=== PATIENT | male | born 1945 | race Caucasian/White ===

== ENCOUNTER 2017-05-04 04:36 | Inpatient (IN) ==
[2017-05-04] MEDS ORDERED: Acetaminophen 325 MG TABLET PO PRN (08:03)
[2017-05-04] MEDS ORDERED: Naloxone 0.4 MG/ML INJ IVP PRN (08:03)
[2017-05-04] MEDS ORDERED: D5% in Water 1,000 ML IVC PRN (08:05)
[2017-05-04] MEDS ORDERED: Dextrose Gel 15 GM PO PRN ×2 (08:05)
[2017-05-04] MEDS ORDERED: *HR* Dextrose 50 % in Water (Syg) 50 ML SYRINGE IVP PRN (08:05)
[2017-05-04] MEDS ORDERED: 0.9 % Sodium Chloride 1,000 ML ONE (08:38)
--- NOTE | 2017-05-04 08:54 | Internal Med History&Physical ---
Date of Encounter: 05/04/17 Time of Encounter: 08:00 Assessment and Plan (1) Elevated troponin Current visit: Yes Status: Acute Likely related to tachycardia. Continue to cycle troponins, 0.03 and 0.05. Telemetry monitoring. Continue Coumadin. (2) Atrial fibrillation with RVR Current visit: Yes Status: Acute Heart rate currently noted to be improving. Continue telemetry monitoring, IV Cardizem drip and plan to wean off as tolerated. Patient was recently taken off amiodarone due to abnormal pulmonary function testing showing restrictive lung disease in December 2016. Continue oral beta alexi and anticoagulation with Coumadin. INR noted to be 1.8. BNP slightly elevated at 220. Check 2-D echocardiogram. Cardiology evaluation. High risk for complications. (3) Essential hypertension Current visit: Yes Status: Chronic Resume home medications. (4) Diabetes mellitus Current visit: Yes Status: Chronic Check hemoglobin A1c. Accu-Chek blood glucose monitoring with sliding scale insulin. Diabetic diet. Qualifiers: Diabetes mellitus type: type 2 Diabetes mellitus complication status: with unspecified complications Diabetes mellitus shelter insulin use: without terminal worker use Qualified Code(s): E11.8 - Type 2 diabetes mellitus with unspecified complications Internal Medicine - H&P: HPI Chief complaint: Chest pain Admitted From: Emergency Dept Plans for Post Hospital Care: Home History of present illness: Mr. Li is a 71 year old male with h/o- atrial fibrillation, presents with c /o- chest pain. Patient was in his usual state of health until last night when he developed a sudden onset of chest pain while watching TV. He had sharp chest pain, radiating across his chest, associated with diaphoresis and shortness of breath and some dizziness. No syncope, cough, palpitations. His symptoms persisted until he got to the ER and was started on IV Cardizem. No similar previous episodes. He reports being diagnosed with a.fib about 4 years ago and that he was recently taken off a medication, probably Amiodarone. He continues to take Coumadin for anticoagulation. Past Med Surg Social Fam HX - Past Medical History Medical history: atrial fibrillation, diabetes, hypertension Psychiatric history: no psych history - Past Surgical History Surgical History: orthopedic, other (right shoulder repair ), thyroidectomy ( thyroid surgery ?excision of mass/cyst) - Social History Smoking Status: Former smoker Smokeless Tobacco Status: No Alcohol use: none Drug use: none Occupational status: retired Current living situation: Home, With Family Activity Level: Independent ambulation Recent Out of Country Travel Within the Last 8 Weeks: No - Family History Mother Living Status: Hx Family Cardiac Disorders: Yes Brother Living Status: Hx Family Cardiac Disorders: Yes (heart transplant) Father Living Status: Cause of : cancer Internal Medicine - H&P: Meds Amiodarone [Cordarone] 200 mg PO DAILY 05/04/17 [History] Atorvastatin [Lipitor] 40 mg PO HS 05/04/17 [History] Carvedilol [Coreg] 6.25 mg PO BID 05/04/17 [History] Cholecalciferol (Vitamin D3) [Dialyvite Vitamin D] 5,000 unit PO DAILY 05/04/17 [History] Losartan Potassium [Cozaar] 50 mg PO DAILY 05/04/17 [History] Metformin HCl [Metformin HCl ER] 500 mg PO DAILY 05/04/17 [History] Warfarin [Coumadin] 2.5 mg PO DAILY 05/04/17 [History] Allergies No Known Allergies Allergy (Unverified 10/05/15 13:30) All Systems PM: A 10-system review of systems was performed and is negative for pertinent findings except as documented above in the HPI. - Constitutional Constitutional: no chills, no fever(s), no night sweats - EENT Eyes: no change in vision, no discharge, no pain, no photophobia Ears: no ear discharge, no ear pain, no tinnitus Nose, mouth and throat: no dysphagia, no nasal discharge, no neck pain, no sore throat - Cardiovascular Cardiovascular ROS IM: chest pain, diaphoresis, dyspnea, lightheadedness - Respiratory Respiratory: dyspnea - Gastrointestinal Gastrointestinal: no abdominal pain, no diarrhea, no hematemesis, no hematochezia, no melena, no nausea, no vomiting - Musculoskeletal Musculoskeletal ROS IM: no numbness, no tingling - Integumentary Integumentary IM: no rash, no unusual bruising - Neurological Neurological ROS: no confusion, no convulsions, no focal weakness, no numbness, no tingling, no tremor(s) - Hematologic/Lymphatic Hematologic/Lymphatic: no easy bruising - Constitutional Vitals: Temp Pulse Resp BP Pulse Ox 97.6 F 104 20 108/63 95 05/04/17 07:22 05/04/17 07:22 05/04/17 07:22 05/04/17 07:22 05/04/17 07:22 General appearance: Present: A&O X 3, answers questions appropriately (although he cannot remember all the details of his medical history) - Respiratory Respiratory exam: Present: decreased breath sounds (at right base), CTAB. Absent: accessory muscle use, rales, rhonchi, wheezes - Cardiovascular Cardiovascular exam: Present: irregular rhythm, +S1, +S2, tachycardia. Absent: diastolic murmur, gallop, rubs, systolic murmur - GI/Abdominal GI/Abdominal exam: Present: normal bowel sounds, soft, no peritoneal signs. Absent: distended, tenderness - Extremities Exam Extremities exam: Present: full ROM, warm, radial pulses palpable and symetrical. Absent: calf tenderness, cyanotic, pedal edema - Neurological Exam Neurological exam: Present: CN II-XII intact, oriented X3, no focal deficits. Absent: pronater drift, facial droop, speech deficit - Skin Skin exam: Present: dry, intact Internal Med - H&P Results - EKG Data -: EKG Interpreted by Myself (atrial fibrillation with RVR, LBBB)
[2017-05-04 09:59] LABS: Hemoglobin A1C 6.1 %
--- NOTE | 2017-05-04 11:04 | Cardiology Consult Note ---
Date of Encounter: 05/04/17 Time of Encounter: 11:03 Assessment and Plan (1) Atrial fibrillation with RVR Current Visit: No Status: Acute H/o PAF. Presents with atrial fibrillation with RVR, LBBB, HR 150. HR currently 90-120 on cardizem gtt. Continue cardizem gtt and titrate as needed to keep HR 100 bpm or less. Check TTE. TTE 2012- EF 45%, mild global systolic dysfunction. . Mild dilated LA. Trivial AR and TR. Check TSH. Amiodarone discontinued 01/2017 secondary to abnormal PFT. In regards to AC he is currently on coumadin therapy. Reports difficulty keeping INR in therapeutic range for three years. I discussed anticoagulation with NOAC. Indication, adverse effects, and use discussed. He would like to try NOAC. We will send RX for eliquis to pharmacy to dumont check. (2) Chest pain Current Visit: No Status: Acute C/o chest pain. May be secondary to atrial fibrillation. Continues to have left sided chest pain that is reproducible. Known LBBB. Will need to monitor troponin. Currently elevated at 0.05 and 0.13. 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 Check TTE. Further recommendation to follow. Qualifiers: Chest pain type: unspecified Qualified Code(s): R07.9 - Chest pain, unspecified (3) Elevated troponin Current Visit: No Status: Acute Mild troponin elevation at 0.05, 0.13. Demand ischemia from afib with RVR Vs NSTEMI. Continue to trend. Check TTE. (4) Cardiomyopathy Current Visit: Yes Status: Acute Known non-ischemic cardiomyoapthy. CXR showed mild basilair opacity likely consolitdation or atelectasis. Low lung volumes and persistent elevation of right hemidiaphragm. BNP mildly elevated 221. Reports 14 lb weight gain in past couple of months. Will give one dose IV lasix today. Re-checking TTE. Strict I&O and daily weights. Low sodium diet. Qualifiers: Cardiomyopathy type: unspecified Qualified Code(s): I42.9 - Cardiomyopathy , unspecified Discussion w patient/family: The assessment and plan as outlined above was discussed with the patient and/or family members who expressed understanding and agreement. All questions were answered. Thank you for involving us in the care of your patient. Please call with any questions. History of Present Illness Consult date: 05/04/17 Requesting physician: Yulissa Moon Consult reason: Afib with RVR Chief complaint: Chest pain History of present illness: Mr. Li is a 71 year old male with a history of atrial fibrillation on coumadin, non-ischemic cardiomyopathy, CHRISTINE on c-pap, HTN, HLD, DM type II who presented with chest pain to [facility] ED. Patient c/o severe pain radiating across his chest and upper abdomen starting yesterday evening. Pain was associated with SOB. He also c/o feeling very hot and is sweating profusely. He reports sweating has been a problem for him in the past but not this bad. Symptoms improved when given medication for HR and NTG patch. Initial work-up revealed atrial fibrillation with HR in the 150's. Troponin 0.05, mild ANNY, and BNP 250. He was transferred to [facility] for further evaluation. Past Med Surg Social Fam HX - Past Medical History Medical history: atrial fibrillation, cardiomyopathy, coronary artery disease, diabetes, hyperlipidemia, hypertension, other (CHRISTINE) Psychiatric history: no psych history - Social History Smoking Status: Former smoker Smokeless Tobacco Status: No Alcohol use: none Drug use: none - Family History Mother Living Status: Hx Family Cardiac Disorders: Yes Brother Living Status: Hx Family Cardiac Disorders: Yes (heart transplant) Father Living Status: Cause of : cancer Medications and Allergies Amiodarone [Cordarone] 200 mg PO DAILY 05/04/17 [History] Atorvastatin [Lipitor] 40 mg PO HS 05/04/17 [History] Carvedilol [Coreg] 6.25 mg PO BID 05/04/17 [History] Cholecalciferol (Vitamin D3) [Dialyvite Vitamin D] 5,000 unit PO DAILY 05/04/17 [History] Losartan Potassium [Cozaar] 50 mg PO DAILY 05/04/17 [History] Metformin HCl [Metformin HCl ER] 500 mg PO DAILY 05/04/17 [History] Warfarin [Coumadin] 2.5 mg PO DAILY 05/04/17 [History] Allergies No Known Allergies Allergy (Unverified 10/05/15 13:30) All Systems Review: A 10-system review of systems was performed and is negative for pertinent findings except as documented above in the HPI. Physical Examination Vital Signs, Last 4 Hours Temp Pulse Resp BP Pulse Ox 05/04/17 08:21 95 05/04/17 07:22 97.6 F 104 20 108/63 95 General: Conversant, No Apparent Distress HEENT: Atraumatic, Normocephaly, Mucus Membranes Moist Neck: No JVD, Normal carotid pulses Cardiac: Other (irregularly irregular) Lungs: Normal Breath Sounds, No Wheeze, Rales, Rhonchi Neuro: Alert and responsive, No focal deficits noted Abdomen: Soft, Non-Tender Skin: No rashes noted on visualized skin, Other (moist warm skin from sweating.) Musculoskeletal: No Chest Wall Tenderness Extremities: No Clubbing, No Cyanosis, No Edema, Normal Pulses Results Lab Results 05/04/17 08:59 Troponin I 0.13 H* - Imaging and Cardiology Echo: report reviewed Cardiac cath: report reviewed - EKG Interpretation EKG results cardiology: personally reviewed (atrial fibrillation with RVR, LBBB. ) Consult Discharge Plan - Plan Referrals: Angel Del Rosario MD [Primary Care Provider] - 05/12/17 2:00 pm (Please follow as schedule...)
[2017-05-04] MEDS ORDERED: Furosemide 20 MG/2 ML VIAL IVP ONE (12:01)
[2017-05-04] MEDS: Insulin LISPRO 300 UNITS/3 ML VIAL SQ SCH ×3 (12:52→21:28)
[2017-05-04] MEDS ORDERED: Warfarin perPT PO PRN ×2 (18:00)
[2017-05-04] MEDS ORDERED: *HR* Warfarin 2.5 MG TABLET PO ONE (18:00)
[2017-05-04] MEDS ORDERED: *HR* Warfarin 2.5 MG TABLET PO SCH (18:00)
[2017-05-04] MEDS ORDERED: APIXABAN 5 MG TABLET PO SCH (21:00)
[2017-05-04] MEDS: Metoprolol XL (24 HR) Succ 50 MG TAB.ER.24H PO SCH (21:26)
[2017-05-05 05:34] LABS: Basophils % 0.5 %; Eosinophils # 0.2 K/mcL (0.0-0.6); Eosinophils % 2.5 %; Immature Granulocytes % 0.2 % (0-4); Lymphocytes # 2.5 K/mcL (0.6-4.6); Lymphocytes % 30.1 %; Mean Corpuscular HGB Conc 31.3 g/dL (31.6-35.5); Mean Corpuscular Hemoglobin 30.7 pg (28.0-33.3); Mean Platelet Volume 9.7 fL (9.4-12.4); Monocytes # 0.7 K/mcL (0.0-1.3); Monocytes % 8.7 %; Neutrophils # 4.8 K/mcL (1.6-8.9); Platelet Count 230 K/mcL (140-400); Red Blood Count 3.98 M/mcL (4.19-5.50); Red Cell Distribution Width 13.2 % (11.5-14.5)
[2017-05-05 05:36] LABS: Prothrombin Time 21.6 Seconds (9.4-12.1)
[2017-05-05 06:02] LABS: BUN/Creatinine Ratio 29 (6-26); Blood Urea Nitrogen 28 mg/dL (8-26); Calcium 8.6 mg/dL (8.6-10.8); Carbon Dioxide 31 mEq/L (19-29); Chloride 104 mEq/L (98-109); Glucose 108 mg/dL (70-99); Magnesium 1.5 mg/dL (1.6-2.6); Osmolality,Calculated 294 (280-300); Phosphorous 3.1 mg/dL (2.3-4.7); Potassium 4.1 mEq/L (3.5-4.5); Sodium 139 mEq/L (136-145); eGFR For African Americans > 60 (> 60); eGFR For Non-African Americans > 60 (> 60)
[2017-05-05 06:06] LABS: Hemoglobin 12.2 g/dL (12.9-16.9)
[2017-05-05] MEDS: Insulin LISPRO 300 UNITS/3 ML VIAL SQ SCH ×4 (08:44→21:51)
[2017-05-05] MEDS: Metoprolol XL (24 HR) Succ 50 MG TAB.ER.24H PO SCH ×2 (08:46→22:18)
--- NOTE | 2017-05-05 09:35 | Cardiology Progress Note ---
Date of Encounter: 05/05/17 Time of Encounter: 08:00 Assessment and Plan (1) Atrial fibrillation with RVR Current Visit: Yes Status: Inactive H/o PAF. Presents with atrial fibrillation with RVR, LBBB, HR 150. Currently rate controlled. HR in the upper 50's to 60's. Continue toprol XL. TTE:EF 25%, severe global hypokenesis. Mild LVH, mild DD. Severely dilated LA. No significant valvular disease. Mild pulmonary hypertension. TTE 2012- EF 45%, mild global systolic dysfunction. . Mild dilated LA. Trivial AR and TR. Check TSH. Amiodarone discontinued 01/2017 secondary to abnormal PFT. Will hold coumadin for [facility]. Restart after [facility]. Eliquis was dumont checked and found to be 210$ a month. He agrees to continue coumadin. (2) Chest pain Current Visit: No Status: Acute C/o chest pain. May be secondary to atrial fibrillation. Continues to have left sided chest pain that is reproducible. Known LBBB. Mild troponin elevation up to 0.13, likely demand ischemia from afib with RVR. [facility] 05/2013: mild non-obstructive CAD (20% LAD). TTE shows newly reduced EF at 25%. [facility] recommended for further evaluation of new cardiomyoapthy. R/B/A of [facility] discussed. He agrees to proceed. Will need to hold coumadin until INR 1.8 or less. Qualifiers: Chest pain type: unspecified Qualified Code(s): R07.9 - Chest pain, unspecified (3) Elevated troponin Current Visit: Yes Status: Inactive Mild troponin elevation at 0.05, 0.13., 0.11, 0.09. Likely demand ischemia from atrial fibrillation with RVR. See plan above. (4) Cardiomyopathy Current Visit: Yes Status: Acute Known non-ischemic cardiomyopathy with worsening LVEF. Mild acute on chronic systolic CHF on admission. CXR showed mild basilair opacity likely consolitdation or atelectasis. Low lung volumes and persistent elevation of right hemidiaphragm. BNP mildly elevated 221. Reports 14 lb weight gain in past couple of months. Given IV lasix yesterday and now euvolemic. Continue to monitor. Strict I&O and daily weights. Low sodium diet. Qualifiers: Cardiomyopathy type: unspecified Qualified Code(s): I42.9 - Cardiomyopathy , unspecified Discussion w patient/family: The assessment and plan as outlined above was discussed with the patient and/or family members who expressed understanding and agreement. All questions were answered. Thank you for involving us in the care of your patient. Please call with any questions. Subjective Principal diagnosis: afib with RVR, new cardiomyoapthy Interval history: Mr Morrell continues to have mild left chest pain at rest that is constant. Denies SOB or palpitations. Objective Vital Signs, Last 4 Hours Temp Pulse Resp BP Pulse Ox 05/05/17 07:40 97.7 F 61 13 122/80 96 05/05/17 07:24 98 General: Conversant, No Apparent Distress HEENT: Atraumatic, Normocephaly, Mucus Membranes Moist Neck: No JVD, Normal carotid pulses Cardiac: Other (Irregularly irregular) Lungs: Normal Breath Sounds, No Wheeze, Rales, Rhonchi Neuro: Alert and responsive, No focal deficits noted Abdomen: Soft, Non-Tender Skin: No rashes noted on visualized skin Musculoskeletal: No Chest Wall Tenderness Extremities: No Clubbing, No Cyanosis, No Edema, Normal Pulses Results 05/05/17 04:01 05/05/17 04:01 Lab Results 05/04/17 05/04/17 05/04/17 08:59 15:43 21:18 WBC Hgb Hct Plt Count INR Sodium Potassium Chloride Carbon Dioxide BUN Creatinine Glucose Calcium Magnesium Troponin I 0.13 H* 0.11 H* 0.09 H* 05/05/17 05/05/17 05/05/17 04:01 04:01 04:01 WBC 8.3 Hgb 12.2 L D Hct 39.0 Plt Count 230 INR 2.0 Sodium 139 Potassium 4.1 Chloride 104 Carbon Dioxide 31 H BUN 28 H Creatinine 0.97 Glucose 108 H Calcium 8.6 Magnesium 1.5 L Troponin I - Imaging and Cardiology Echo: report reviewed - EKG Interpretation EKG results cardiology: personally reviewed Consult Discharge Plan - Plan Referrals: Angel Del Rosario MD [Primary Care Provider] - 05/12/17 2:00 pm (Please follow as schedule...)
--- NOTE | 2017-05-05 10:34 | Internal Med Progress Note ---
<Pasquale Banda - Last Filed: 05/05/17 13:27> Date of Encounter: 05/05/17 Time of Encounter: 10:00 - Assessment and plan (1) Chest pain Current Visit: No Status: Acute Assessment and plan: -Patient is currently experiencing mild left sided chest pain that is not associated with SOB or Diaphoresis anymore -Troponins were trended 0.13->0.11->0.09 today. -EKGs showed Afib w/ RVR -Currently on Statin, Coreg, Losartan and will continue -Cardiology on board Qualifiers: Chest pain type: unspecified Qualified Code(s): R07.9 - Chest pain, unspecified (2) Atrial fibrillation with RVR Current Visit: Yes Status: Acute Assessment and plan: Atrial fibrillation with Rapid ventricular response noted on admission -Anticoagulation with warfarin presently, INR 2.0 today. -Started on cardizem, and his rate is currently controlled with heart rates between 50-70. -Will continue cardiac monitoring (3) Cardiomyopathy Current Visit: Yes Status: Acute Assessment and plan: -TTE demonstrates LVEF 25%, global hypokinesis, severely dilated left ventricle , and mild pulmonary htn. -Previous TTE (2012) showed EF45% -Elevated troponins likely secondary to combination of Afib w/ RVR and newly worsened cardiomyopathy -BNP 221. Got IV lasix yesterday. Strict I's and O's -Cardiology recommends a LHC, which will be done in the morning. -NPO after midnight, hold Warfarin -We will follow cardio recs Qualifiers: Cardiomyopathy type: unspecified Qualified Code(s): I42.9 - Cardiomyopathy , unspecified (4) Essential hypertension Current Visit: Yes Status: Chronic Assessment and plan: -History of HTN -Well controlled on current meds at this time. -Will continue to follow and modify meds as needed. (5) Diabetes mellitus Current Visit: Yes Status: Chronic Assessment and plan: -A1C 6.1 on current home meds -Will continue Insulin Sliding Scale with hypoglycemic protocol in place Qualifiers: Diabetes mellitus type: type 2 Diabetes mellitus complication status: with unspecified complications Diabetes mellitus intermission coordinator insulin use: without half-way use Qualified Code(s): E11.8 - Type 2 diabetes mellitus with unspecified complications (6) DVT prophylaxis Current Visit: Yes Status: Acute Assessment and plan: -Patient anticoagulated on Warfarin for history of A-fib, but we are holding warfarin for LHC -Will place SCDs for time that anti-coagulation is planned to be subtherapeutic - Subjective Interval history: Mr. Li is feeling well, but having some mild left sided chest pain at rest still. He is otherwise having no problems and is resting comfortably in bed. - Constitutional Vitals: Temp Pulse Resp BP Pulse Ox 97.7 F 61 13 122/80 96 05/05/17 07:40 05/05/17 07:40 05/05/17 07:40 05/05/17 07:40 05/05/17 07:40 General appearance: Present: A&O X 3, answers questions appropriately (although he cannot remember all the details of his medical history) - Head Head exam: Present: atraumatic, normocephalic - Eye Eye exam: Present: PERRL, conjuntiva pink, sclera anicteric Pupils: Present: PERRL - Neck Neck exam general surgery: Present: supple, trachea midline. Absent: lymphadenopathy - Respiratory Respiratory exam: Present: decreased breath sounds, CTAB. Absent: accessory muscle use, rales, rhonchi, wheezes Additional comments: Decreased breath sounds noted on auscultation of R. Lung. - Cardiovascular Cardiovascular exam: Present: RRR, +S1, +S2. Absent: diastolic murmur, gallop, rubs, systolic murmur - GI/Abdominal GI/Abdominal exam: Present: normal bowel sounds, soft, no peritoneal signs. Absent: distended, tenderness - Extremities Exam Extremities exam: Present: warm, radial pulses palpable and symetrical. Absent : calf tenderness, cyanotic, pedal edema - Neurological Exam Neurological exam: Present: CN II-XII intact, oriented X3, no focal deficits. Absent: pronater drift, facial droop, speech deficit - Skin Skin exam: Present: dry, intact Internal Medicine: Result - Labs CBC & Chem 7: 05/05/17 04:01 05/05/17 04:01 Labs: Short CBC 05/05/17 Range/Units 04:01 WBC 8.3 (4.3-11.1) K/mcL Hgb 12.2 L D (12.9-16.9) g/dL Hct 39.0 (37.5-50.1) % Plt Count 230 (140-400) K/mcL Neutrophils # 4.8 (1.6-8.9) K/mcL BMP 05/05/17 04:01 Sodium 139 Potassium 4.1 Chloride 104 Carbon Dioxide 31 H BUN 28 H Creatinine 0.97 Glucose 108 H Calcium 8.6 Cardiac Enzymes 05/04/17 05/04/17 Range/Units 15:43 21:18 Troponin I 0.11 H* 0.09 H* (0-0.03) ng/mL - ABG Interpretation ABG results: PT/INR, D-dimer PT 21.6 Seconds (9.4-12.1) H 05/05/17 04:01 Consult Discharge Plan - Plan Referrals: Angel Del Rosario MD [Primary Care Provider] - 05/12/17 2:00 pm (Please follow as schedule...) <Eric Powers P - Last Filed: 05/05/17 19:36> Date of Encounter: 05/05/17 - Constitutional Vitals: Temp Pulse Resp BP Pulse Ox 97.6 F 59 16 123/77 93 05/05/17 15:26 05/05/17 15:26 05/05/17 15:26 05/05/17 15:26 05/05/17 15:26 Internal Medicine: Result - Labs CBC & Chem 7: 05/05/17 04:01 05/05/17 04:01 Labs: Short CBC 05/05/17 Range/Units 04:01 WBC 8.3 (4.3-11.1) K/mcL Hgb 12.2 L D (12.9-16.9) g/dL Hct 39.0 (37.5-50.1) % Plt Count 230 (140-400) K/mcL Neutrophils # 4.8 (1.6-8.9) K/mcL BMP 05/05/17 04:01 Sodium 139 Potassium 4.1 Chloride 104 Carbon Dioxide 31 H BUN 28 H Creatinine 0.97 Glucose 108 H Calcium 8.6 Cardiac Enzymes 05/04/17 Range/Units 21:18 Troponin I 0.09 H* (0-0.03) ng/mL - ABG Interpretation ABG results: PT/INR, D-dimer PT 21.6 Seconds (9.4-12.1) H 05/05/17 04:01 - Attending Attestation I examined this patient and my medical decision-making was reviewed with the Resident Physician. I agree with the documented findings, disposition and treatment plan as described except to the extent set forth below. Awaiting for cardiac catheterization.
[2017-05-06 07:30] LABS: Basophils # 0.1 K/mcL (0.0-0.2); Basophils % 0.6 %; Eosinophils # 0.2 K/mcL (0.0-0.6); Eosinophils % 2.1 %; Hematocrit 37.8 % (37.5-50.1); Hemoglobin 12.2 g/dL (12.9-16.9); Immature Granulocytes % 0.3 % (0-4); Lymphocytes # 2.6 K/mcL (0.6-4.6); Lymphocytes % 29.8 %; Mean Corpuscular HGB Conc 32.3 g/dL (31.6-35.5); Mean Corpuscular Hemoglobin 31.4 pg (28.0-33.3); Mean Corpuscular Volume 97.2 fL (83.0-100.0); Mean Platelet Volume 9.9 fL (9.4-12.4); Monocytes # 0.8 K/mcL (0.0-1.3); Monocytes % 9.2 %; Platelet Count 220 K/mcL (140-400); Red Blood Count 3.89 M/mcL (4.19-5.50); Red Cell Distribution Width 13.1 % (11.5-14.5)
[2017-05-06 07:36] LABS: BUN/Creatinine Ratio 23 (6-26); Blood Urea Nitrogen 20 mg/dL (8-26); Calcium 8.7 mg/dL (8.6-10.8); Carbon Dioxide 31 mEq/L (19-29); Chloride 104 mEq/L (98-109); Glucose 100 mg/dL (70-99); Osmolality,Calculated 291 (280-300); Potassium 4.1 mEq/L (3.5-4.5); Sodium 139 mEq/L (136-145); eGFR For African Americans > 60 (> 60); eGFR For Non-African Americans > 60 (> 60)
[2017-05-06] MEDS: Insulin LISPRO 300 UNITS/3 ML VIAL SQ SCH ×2 (07:47→11:36)
[2017-05-06 08:27] LABS: INR 1.9; Prothrombin Time 20.5 Seconds (9.4-12.1)
[2017-05-06] MEDS: Metoprolol XL (24 HR) Succ 50 MG TAB.ER.24H PO SCH (08:46)
--- NOTE | 2017-05-06 08:47 | Event Note ---
Date of Encounter: 05/06/17 Time of Encounter: 08:45 - Cardiology Event Note Mr. Li is awaiting [facility] today to evaluate for ischemia cause of newly reduced EF at 25%. INR 1.9. Discussed with padmini Portillo to proceed. R/B/A discussed. Patient denies questions. Continues to have intermittent left sided chest pain lasting a few minutes at a time.
[2017-05-06] MEDS ORDERED: Heparin 1,000 UNITS/500 mL NS 500 ML ONE (12:04)
[2017-05-06] MEDS ORDERED: 0.9 % Sodium Chloride 1,000 ML ONE ×2 (12:04→12:18)
[2017-05-06] MEDS ORDERED: Nitroglycerin 1,000 MCG/10 ML VIAL IV ONE (12:05)
[2017-05-06] MEDS ORDERED: *HR* Heparin 10,000 UNIT/10 ML VIAL ONE (12:05)
[2017-05-06] MEDS ORDERED: *HR* Midazolam HCl 2 MG/2 ML VIAL ONE (12:32)
[2017-05-06] MEDS ORDERED: *HR* FentaNYL (PF) 100 MCG/2 ML VIAL ONE (12:33)
--- NOTE | 2017-05-06 12:33 | Pre-Sedation Evaluation ---
Pre-sedation evaluation - Pre-sedation checklist Date of procedure: 05/06/17 Procedure: [facility] Recent Vitals: Last Vital Signs Temp 97.7 F 05/06/17 10:39 Pulse 60 05/06/17 10:39 Resp 20 05/06/17 10:39 BP 137/82 05/06/17 10:39 Pulse Ox 93 05/06/17 10:39 H&P (including ROS) documented in medical record: Yes Previous reaction to sedatives/anesthetics: No Dietary Status: NPO after Midnight Dentition: dentures removed ASA Classification *see protocol: CLASS II-Mild systemic disease Plan of Care: Pt appropriate candidate for procedure/moderate/conscious sedation , Risks/benefits of procedure/sedation discussed w/ patient/family
[2017-05-06 13:07] LABS: INR 1.7; Prothrombin Time 18.6 Seconds (9.4-12.1)
--- NOTE | 2017-05-06 13:19 | Invasive Diagnostic Lab Proc ---
Name: Juan Carlos Li Date of Study: 05/06/2017 Date: 1945 Ht: 68.9in Medical Record#: [id number] Age: 71 Wt: 209.44lb Gender: Male BSA: 2.1 Order #: [id number] BMI: 31.02 Physicians Procedure Physician: Kushal Conti MD, [facility] Referring MD: Referring MD: Staff Name Position Time In Lisette Lee RT (R) Monitor 12:36 PM Carolina Brothers RN Orthopedics Pediatric Physician 12:36 PM Rossana Ramirez RN Orthopedics Pediatric Physician 12:37 PM Melissa Guillory RT (R) Scrub 12:37 PM Indications Indication Non-Stemi Cardiomyopathy Procedures Performed Procedure L HRT ARTERY/VENTRICLE ANGIO Pre-Procedure Checklist Informed consent is complete signed and on chart. H&P is on chart. ID band is on and ID verified with patient. Patient NPO for procedure The procedure was described for the patient and questions were answered. Blood Pressure: 125/70 ECG is on chart. Rhythm: Atrial Fibrillation Plan of Care Patient will tolerate the procedure without complications. Adequate level of comfort will be maintained. Hemodynamics will remain stable Patient will recover from procedure without complications. Respiratory function will be maintained. Cardiac rhythm will remain stable. Patient temperature will be maintained. Patient and/or family have verbalized understanding of the procedure. Patient Education Chief Complaint/Reason for Test: Cardiac Cath Developmental Category: Geriatric (65+ years) Developmentally Appropriate for Age: Yes Learning Barriers: None Education Needs: Procedure Education Method: Verbal Information Taught: Cardiac Cath Educational Evaluation: Able to repeat information Intravenous Access Time IV Size Location DC'd Fluid/Drip Rate Units RN 12:23 PM 18g 1 10/22" Patent On Arrival Rt Antecubital 0.9NaCl ml/hr Allergies NONE KNOWN No Known Allergies Vital Signs Time BP (mmHg) HR (bpm) O2 Sat. RR (bpm) LOC 12:23 PM 125 / 70 57 97 % 18 5 = Fully awake and oriented or at pre-proc level 12:37 PM / % 4 = Oriented but drowsy 12:38 PM / % 4 = Oriented but drowsy 12:34 PM 171 / 115 56 95 % 26 12:38 PM 159 / 99 52 96 % 27 12:44 PM 164 / 99 55 92 % 16 12:46 PM 159 / 98 55 96 % 17 12:48 PM 163 / 107 54 98 % 15 12:54 PM 166 / 96 58 98 % 18 12:59 PM 165 / 100 62 99 % 19 12:53 PM / % 4 = Oriented but drowsy Procedural Medications Time Medication Dose Units Method Given By 12:37 PM Oxygen 2 L/min nasal cannula Rossana Ramirez RN 12:37 PM Versed 2 mg Intravenous Rossana Ramirez RN 12:37 PM Fentanyl 50 mcg Intravenous Rossana Ramirez RN 12:42 PM Oxygen 15 L/min 100% non rebreather mask Carolina Brothers RN 12:51 PM Lidocaine 2% 20 ml Subcutaneous Kushal Conti MD, [facility] ASA Classification: CLASS II- Mild systemic disease (i.e. well-controlled diabetes, hypertension, asthma, cigarette smoking) Hood Score Preprocedure Postprocedure Activity 2- Moves 4 extremities sustained head lift Activity 2- Moves 4 extremities sustained head lift Circulation 2- SBP +/= 20 points of pre-anesthetic level Circulation 2- SBP +/= 20 points of pre-anesthetic level Consciousness 2- Awake and alert oriented x 3 Consciousness 2- Awake and alert oriented x 3 O2 Saturation 2- Able to maintain O2 satruation of 92% on room air O2 Saturation 2- Able to maintain O2 satruation of 92% on room air Respiratory 2- Able to deep breathe and cough well Respiratory 2- Able to deep breathe and cough well Total Score 10 Total Score 10 Contrast Agent: Isovue Diagnostic Contrast: 62 ml Total Contrast: 62 ml Fluoro Dose: 207 mGy Procedure Log Time Note Enter By 12:32 PM Vitals capture started with the following parameters, Patient=Adult, Interval=5 min, Initial Bjxdzmsa=406 mmHg, Deflation Rate=5 mmHg, Cuff placed on Left Arm 12:34 PM HR=56 bpm, UKPV=196/115 mmhg, SpO2=95.0 %, Resp=26 B/min 12:36 PM Recorded ECG: HR=57 Condition=Condition 1 12:36 PM Pt arrived to lab intern 2 at 12:36 [email or web address] 12:36 PM Lisette Lee RT (R) Position: Monitor Time in: 12:36 [email or web address] 12:37 PM Carolina Brothers RN Position: Orthopedics Pediatric Physician Time in: 12:36 [email or web address] 12:37 PM Rossana Ramirez RN Position: Orthopedics Pediatric Physician Time in: 12:37 [email or web address] 12:37 PM Melissa Guillory RT (R) Position: Scrub Time in: 12:37 [email or web address] 12:37 PM Patient charges- Angio tray pack, Navilyst 3mm J, Pulse Oximetry and ACIST tubing and transducer [email or web address] 12:37 PM Physician arrived 12:37 [email or web address] 12:37 PM ASA Class CLASS II- Mild systemic disease (i.e. well-controlled diabetes, hypertension, asthma, cigarette smoking) [email or web address] 12:37 PM Evaristo and fatimah completed [email or web address] 12:37 PM Sign in performed according to hospital policy[email or web address] 12:37 PM Procedure start 12:37 [email or web address] 12:37 PM Time: 12:37 Oxygen on at 2 L/min per nasal cannula by Rossana Ramirez RN [email or web address] 12:37 PM Time: 12:37 Versed 2 mg Intravenous Given by Rossana Ramirez RN [email or web address] 12:37 PM Time: 12:37 Fentanyl 50 mcg Intravenous Given by Rossana Ramirez RN [email or web address] 12:37 PM Time: 12:37 Patient comfortable and pain free: Yes [email or web address] 12:38 PM Time: 12:37LOC: 4 = Oriented but drowsy [email or web address] 12:38 PM Bilat allens abnormal.Physician notified of results and INR is 1.9. Dr Conti wants to proceed with groin access. [email or web address] 12:38 PM HR=52 bpm, ZJYI=869/99 mmhg, SpO2=96.0 %, Resp=27 B/min 12:43 PM Time: 12:42 Oxygen on at 15 L/min per 100% non rebreather mask by Carolina Brothers RN [email or web address] 12:44 PM HR=55 bpm, RBYW=048/99 mmhg, SpO2=92.0 %, Resp=16 B/min 12:45 PM NIBP STAT measurement started. 12:46 PM HR=55 bpm, BXCZ=817/98 mmhg, SpO2=96.0 %, Resp=17 B/min, Comment=A-fib 12:47 PM Pressure channel 1 zeroed. 12:48 PM HR=54 bpm, ELBT=601/107 mmhg, SpO2=98.0 %, Resp=15 B/min, Comment=A-fib 12:50 PM Pressure channel 1 zero failed. 12:50 PM Pressure channel 1 zeroed. 12:51 PM Time out performed according to hospital policy [email or web address] 12:51 PM Time: 12:51 20 ml Lidocaine 2% to right groin Subcutaneous Given by Kushal Conti MD, [facility] [email or web address] 12:52 PM Access obtained by percutaneous puncture. 5Fr 10cm Terumo Ballico sheath placed in right Femoral artery. [id number] [email or web address] 12:52 PM 0.035 145cm Navilyst 3mmJ wire [id number] [email or web address] 12:52 PM 5Fr FL 4 [email or web address] 12:[facility] PM Time: 12:37 Patient comfortable and pain free: Yes [email or web address] 12:53 PM Time: 12:38LOC: 4 = Oriented but drowsy [email or web address] 12:53 PM Wire removed [email or web address] 12:53 PM LCA angiography performed in multiple views. [email or web address] 12:53 PM Recorded Pressure: Ao, HR=58, Condition=Condition 1 (Aorta) Ao 123/77/97 12:54 PM HR=58 bpm, OZCG=322/96 mmhg, SpO2=98.0 %, Resp=18 B/min, Comment=A-fib 12:55 PM Catheter removed [email or web address] 12:55 PM 5Fr FR 4 [email or web address] 12[facility]56 PM Recorded Pressure: Ao, HR=62, Condition=Condition 1 (Aorta) Ao 127/91/108 12:57 PM Catheter removed [email or web address] 12:57 PM 5Fr Pigtail [email or web address] 12[facility]57 PM Catheter selectively placed in left ventricle [email or web address] 12:57 PM Bolus angiogram of left Ventricle complete: 13 ml/sec for a total of 30 mls [email or web address] 12:57 PM Coronary Dominance: Left [email or web address] 12:58 PM Recorded Pressure: LV, HR=62, Condition=Condition 1 (Left Ventricle) LV 131/16/17 12:59 PM Recorded Pressure: LV, Ao, HR=70, Condition=Condition 1 (Left Ventricle) LV 127/15/22, (Aorta) Ao 121/36/74 12:59 PM HR=62 bpm, CVPC=571/100 mmhg, SpO2=99.0 %, Resp=19 B/min, Comment=A-fib 01:00 PM Catheter removed [email or web address] 01:00 PM Bolus angiogram of right Femoral complete: 4 ml/sec for a total of 7 mls [email or web address] 01:00 PM Procedure completed at 13:00 [email or web address] 01:01 PM Sign out completed: Radiation Dose 206.91 mGy Fluoro Time: 1.5 Isovue 370 - 62ml contrast ml given by Kushal Conti MD, FACC. Complications: NoneCardiac Rehab Consult needed: NoConfirmed administered medications: Yes [email or web address] 01:01 PM Post ECG Atrial Fibrillation [email or web address] 01:02 PM Education needs Procedure, Plan of Care, and Disease Process [email or web address] 01:02 PM Learning barriers :None [email or web address] 01:02 PM Education Methods Verbal [email or web address] 01:02 PM Education evaluation Able to repeat information [email or web address] 01:04 PM Post Blood Pressure 161/92 [email or web address] 01:04 PM Site status No bleeding/hematoma - Rt Groin as reported by Melissa Guillory RT (R) at 13:04 [email or web address] 01:04 PM Opsite applied [email or web address] 01:04 PM Delay to floor No [email or web address] 01:05 PM Family placed in consult room. [email or web address] 01:06 PM Fluoro Time: 1.5 [email or web address] 01:06 PM Isovue 370 - 200ml contrast 62 ml given by Kushal Conti MD, FACC. [email or web address] 01:08 PM Time: 12:53LOC: 4 = Oriented but drowsy [email or web address] 01:08 PM Time: 12:53 Patient comfortable and pain free: Yes [email or web address] 01:09 PM Report given to Lisa ALLEN Pt taken to 2A Room #22. 13:09 [email or web address] 01:10 PM Complications: None [email or web address] 01:10 PM Patient out of room: 13:10 [email or web address] Complications Complication None None Hemodynamics Pressures Site Systolic/A Wave Diastolic/V Wave Mean LV 131 16 17 LV 127 15 22 AO 121 36 74 AO 123 77 97 AO 127 91 108 Post Procedure Information Blood Pressure: 161/92 mmHg Rhythm: Atrial Fibrillation Post procedural instructions were given Closure Device Time Device Success/Fail 05/06/2017 1:02:00 PM MynxGrip Successful Site Checks Time Location Status Staff Sheath In? Note 01:04 PM Rt Groin No bleeding/hematoma Melissa Guillory RT (R) Pulses Time Site Pre-Procedure Post-Procedure Note 05/06/2017 12:23:00 PM Bilateral DP & PT 1+ 1+ 05/06/2017 12:23:00 PM Bilateral radial 2+ 2+ Updated by Lisette Lee, RT(R) on 05/06/2017 1:12:24 PM electronically signed on 05/06/2017 1:13:18 PM with status of Final
--- NOTE | 2017-05-06 13:50 | Invasive Diagnostic Lab ---
Name: Juan Carlos Li Date of Study: 05/06/2017 Date: 1945 Ht: 175.0 cm /68.9 in Medical Record#: [id number] Age: 71 Wt: 95. kg / 209.44 lb Account/Order#: [id number] Gender: Male BSA: 2.1 Order #: [id number] Fluoro Dose: 207 mGy BMI: 31.02 Procedure Physician: Kushal Conti MD, FACC Referring MD: Referring MD: Procedures Performed: LEFT HEART CATH Indications: Non-Stemi, Cardiomyopathy Impressions: Coronary arteries have minimal coronary artery disease The left ventricle is enlarged dilated and has severely abnormal contractility EF 15% Recommendations: Optimal medical therapy of patient's disease. Aggressive risk factor modification. History/Risk Factors: CAD A-fib NSTEMI Cardiomyopathy Diabetes Hypertension Procedure Access obtained in the right Femoral artery by percutaneous puncture Complications: None, None Contrast: Isovue 62ml Closure Device: MynxGrip Hemodynamics: Pressures Site Systolic/ A Wave Diastolic/ V Wave End Diastolic/ Mean HR LV 131 16 17 62 LV 127 15 22 63 AO 121 36 74 73 AO 123 77 97 58 AO 127 91 108 62 LV Ventriculography Ejection Method: LV Gram Ejection Fraction: 15% Wall Motion: BAÑUELOS Anterobasal Severe Hypokinesis Anterolateral Severe Hypokinesis Apical: Severe Hypokinesis Inferoapical Severe Hypokinesis Inferobasal Severe Hypokinesis Coronary Dominance: Left Lesion Findings/Interventions * Left Main Coronary Artery The LMCA is angiographically free of disease. * Left Anterior Descending The LAD has a mid 20% stenosis with mild systolic bridging. The 1st Diagonal is angiographically free of disease. * Circumflex The Circumflex has proximal 20% stenosis The 1st Marginal is angiographically free of disease. The Left PDA is angiographically free of disease. * Right Coronary Artery The RCA is angiographically free of disease and is small and non-dominant. Updated by RT Jakub(R) on 05/06/2017 1:11:53 PM Kushal Conti MD, FACC electronically signed on 05/06/2017 1:43:23 PM with status of Final
--- NOTE | 2017-05-06 14:22 | Event Note ---
Date of Encounter: 05/06/17 Time of Encounter: 14:19 - Cardiology Event Note LHC completed. No complications. LHC revealed minimal CAD. Non-ischemic cardiomyopathy. EF 15%. TTE shows EF 25%. Continue toprol XL and add ACEi. Currently euvolemic. Currently rate controlled HR in the 60's. Restart coumadin. Goal INR 2.0-3.0, No indication for bridging. Low sodium diet recommended. Out-pt f/u will be scheduled in 1-2 weeks with [facility].
--- NOTE | 2017-05-06 14:38 | Discharge Summary ---
<Pasquale Banda - Last Filed: 05/06/17 14:58> Date of Encounter: 05/06/17 Time of Encounter: 10:00 - Discharge Diagnosis (1) Cardiomyopathy Priority: Primary Status: Acute Comments: -TTE demonstrated LVEF 25%, LHC showed LVEF 15%. -Coronary arteries have only mild disease, and this cardiomyopathy is not ischemic in nature. -As above in chest pain, we will continue optimal medical management at the recommendation of cardiology -Continue BB, NANDO, Warfarin. -Maintain low salt diet -Patient expressed interest in initiating care with [place] [facility] because it is closer to his house. He should follow up in 1-2 weeks Qualifiers: Cardiomyopathy type: unspecified Qualified Code(s): I42.9 - Cardiomyopathy , unspecified (2) Chest pain Priority: Primary Status: Acute Comments: -The patient is still currently experiencing mild left-sided chest pain is not radiated or associated with any shortness of breath or diaphoresis. -Troponins were trended and decreased -EKGs have demonstrated Afib with RVR, and he has been anticoagulated to a therapeutic level with warfarin throughout this admission, with a brief lapse allowed for LHC. -LHC revealed minimal CAD, non-ischemic cardiomyopathy, EF 15%. -Cardiology recommends continued use of troprol XL, ACEi. Qualifiers: Chest pain type: unspecified Qualified Code(s): R07.9 - Chest pain, unspecified (3) Atrial fibrillation with RVR Priority: Primary Status: Acute Comments: -Elevated troponins were likely the result of afib w/ rvr combined with worsened HFrEF. -Rate has been controlled, initially on cardizem drip, but continued to be controlled on metoprolol. -Reinitiate warfarin for goal INR 2-3. (4) Essential hypertension Priority: Secondary Status: Chronic Comments: Well managed on current medications. We will continue and allow cardiology to adjust medications outpatient if necessary. (5) Diabetes mellitus Priority: Secondary Status: Chronic Comments: -Continue home medications. -Follow up with PCP within 2-3 weeks for adjustment as necessary. Qualifiers: Diabetes mellitus type: type 2 Diabetes mellitus complication status: with unspecified complications Diabetes mellitus longterm insulin use: without rat exterminator use Qualified Code(s): E11.8 - Type 2 diabetes mellitus with unspecified complications (6) DVT prophylaxis Priority: Secondary Status: Acute - Discharge Medications Prescriptions: Lisinopril [Zestril] 5 mg PO DAILY #30 tab Metoprolol XL (24 HR) Succ [Toprol Xl] 50 mg PO BID #60 Home Medications: Atorvastatin [Lipitor] 40 mg PO HS 05/04/17 [History] Cholecalciferol (Vitamin D3) [Dialyvite Vitamin D] 5,000 unit PO DAILY 05/04/17 [History] Metformin HCl [Metformin HCl ER] 500 mg PO DAILY 05/04/17 [History] Warfarin [Coumadin] 2.5 mg PO DAILY 05/04/17 [History] Lisinopril [Zestril] 5 mg PO DAILY #30 tab 05/06/17 [Rx] Metoprolol XL (24 HR) Succ [Toprol Xl] 50 mg PO BID #60 05/06/17 [Rx] Omeprazole [PriLOSEC] 20 mg PO DAILY@0730 05/06/17 [Rx] Allergies/Adverse Reactions: Allergies No Known Allergies Allergy (Unverified 10/05/15 13:30) Procedures/tests Complete & Pending: Procedures Performed prior 72 hours Category Date Time Status CL Cardiac Catheterization [CL] Routine Infrastructure Design Engineer 05/06/17 10:56 Completed EV echocardiogram Routine Y 05/04/17 08:06 Completed Date of admission: 05/04/17 05:52 Primary care physician: Angel Del Rosario MD Consults: 05/04/17 06:52 Consult to Api Architect [CONS] Routine Reason for SW Consult: patient has financial concerns 05/04/17 08:06 Consult to Cardiology [CONS] Routine Comment: Consulting Provider: [facility] Reason for Consult: A.fib with RVR Call Completed: No - Patient Status Disposition: Home, Self-Care Condition: Fair Functional capacity at discharge: independent ambulation Overall status at discharge: patient is progressing back to baseline - Discharge Instructions Instructions: Metoprolol (By mouth), Lisinopril (By mouth) Follow Up With: Angel Del Rosario MD [Primary Care Provider] - 05/12/17 2:00 pm (Please follow as schedule...) Additional Instructions: Patient should follow up with cardiology within 1-2 weeks, and follow-up with primary care within 2-3 weeks. - Diet and Activity Activity: increase activity as tolerated Diet: low salt diet Hospital course: Mr. Li is a 71 year old male with a history of afib on warfarin, dm2, CAD, that presented to the emergency room on 05/04 with sharp chest pain that radiated across his chest. It was associated with diaphoresis, dyspnea, and occurred while he was watching TV. He said that it lasted until he went to the emergency room where they started an IV Cardizem drip which helped to decrease his chest pain. An EKG demonstrated atrial fibrillation with rapid ventricular response, and echocardiography demonstrated a left ventricular ejection fraction 25%, global hypokinesis, severely dilated left ventricle, mild pulmonary hypertension. This was found to be significantly worsened from 2013 echocardiogram which demonstrated a left ventricular ejection fraction of 45%. Troponins were trended and initially found to be 0.13 and trended down to 0.09. The patient was admitted to the floor for chest pain rule out and cardiology was promptly consulted. The patient was placed on strict I's and O's and IV Lasix was given. The patient underwent left heart catheterization which demonstrated an ejection fraction of 15% and only mild coronary artery disease. It is determined that the patient is not experiencing an ischemic cardiomyopathy. He is hemodynamically stable and prepared for discharge to home. - Time Spent with Patient Total time spent providing and/or coordinating discharge services: - Constitutional Vitals: Temp Pulse Resp BP Pulse Ox 97.7 F 61 18 135/78 94 05/06/17 10:39 05/06/17 14:30 05/06/17 14:30 05/06/17 14:30 05/06/17 14:30 General appearance: Present: A&O X 3, answers questions appropriately (although he cannot remember all the details of his medical history) - Head Head exam: Present: atraumatic, normocephalic - Eye Eye exam: Present: PERRL, conjuntiva pink, sclera anicteric Pupils: Present: PERRL - Neck Neck exam general surgery: Present: supple, trachea midline. Absent: lymphadenopathy - Respiratory Respiratory exam: Present: decreased breath sounds, CTAB. Absent: accessory muscle use, rales, rhonchi, wheezes Additional comments: Mildly decreased breath sounds heard on the right - Cardiovascular Cardiovascular exam: Present: RRR, +S1, +S2. Absent: diastolic murmur, gallop, rubs, systolic murmur - GI/Abdominal GI/Abdominal exam: Present: normal bowel sounds, soft, no peritoneal signs. Absent: distended, tenderness - Extremities Exam Extremities exam: Present: warm, radial pulses palpable and symetrical. Absent : calf tenderness, cyanotic, pedal edema - Neurological Exam Neurological exam: Present: CN II-XII intact, oriented X3, no focal deficits. Absent: pronater drift, facial droop, speech deficit - Skin Skin exam: Present: dry, intact <Priya,Eric P - Last Filed: 05/06/17 18:17> Date of Encounter: 05/06/17 Procedures/tests Complete & Pending: Procedures Performed prior 72 hours Category Date Time Status CL Cardiac Catheterization [CL] Routine Infrastructure Design Engineer 05/06/17 10:56 Completed EV echocardiogram Routine Y 05/04/17 08:06 Completed Date of admission: 05/04/17 05:52 Primary care physician: Angel Del Rosario MD Consults: 05/04/17 06:52 Consult to Api Architect [CONS] Routine Reason for SW Consult: patient has financial concerns 05/04/17 08:06 Consult to Cardiology [CONS] Routine Comment: Consulting Provider: [facility] Reason for Consult: A.fib with RVR Call Completed: No Hospital course: Mr. Li is a 71 year old male - Time Spent with Patient Total time spent providing and/or coordinating discharge services: - Constitutional Vitals: Temp Pulse Resp BP Pulse Ox 97.7 F 63 18 148/88 92 05/06/17 10:39 05/06/17 15:00 05/06/17 15:00 05/06/17 15:00 05/06/17 15:00 - Attending Attestation I examined this patient and my medical decision-making was reviewed with the Resident Physician. I agree with the documented findings, disposition and treatment plan as described except to the extent set forth below. Cardiac catheterization did not show any significant coronary lesion which needs PCI. Cardiac catheterization noted that he of was less than 30%. Patient will follow up with cardiology in 1-2 weeks. Patient will follow up with PCP in 1-2 weeks.
[2017-05-06 15:00] VITALS: BP 148/88
[2017-05-06] MEDS ORDERED: Warfarin perPT PO PRN (18:00)
== END 2017-05-06 15:50 | disposition home or self-care (01) | DRG 286 ==
LOC: 2ANU → OBSVTOIN 05:52 → SUATTDRO 05:52
PROVIDERS: ADMIT Internal Medicine; ATTEND Internal Medicine

== ENCOUNTER 2017-07-06 13:21 | Inpatient (IN) ==
[2017-07-06 14:07] LABS: Basophils # 0.1 K/mcL (0.0-0.2); Basophils % 0.6 %; Eosinophils # 0.2 K/mcL (0.0-0.6); Eosinophils % 2.5 %; Hematocrit 44.3 % (37.5-50.1); Hemoglobin 14.1 g/dL (12.9-16.9); Immature Granulocytes % 0.4 % (0-4); Lymphocytes # 2.4 K/mcL (0.6-4.6); Lymphocytes % 30.7 %; Mean Corpuscular HGB Conc 31.8 g/dL (31.6-35.5); Mean Corpuscular Hemoglobin 30.3 pg (28.0-33.3); Mean Corpuscular Volume 95.1 fL (83.0-100.0); Mean Platelet Volume 9.5 fL (9.4-12.4); Monocytes # 0.8 K/mcL (0.0-1.3); Monocytes % 9.7 %; Neutrophils # 4.5 K/mcL (1.6-8.9); Platelet Count 276 K/mcL (140-400); Red Blood Count 4.66 M/mcL (4.19-5.50); Red Cell Distribution Width 13.2 % (11.5-14.5); Segmented Neutrophils % 56.1 %
[2017-07-06 14:16] LABS: Calcium 9.5 mg/dL (8.6-10.8); Carbon Dioxide 28 mEq/L (19-29); Chloride 105 mEq/L (98-109); Glucose 115 mg/dL (70-99); Potassium 4.2 mEq/L (3.5-4.5); Sodium 140 mEq/L (136-145); eGFR For African Americans > 60 (> 60); eGFR For Non-African Americans > 60 (> 60)
--- NOTE | 2017-07-06 14:58 | Emergency Department Note ---
Disposition Clinical Impression: Elevated troponin Chest pain Qualifiers: Chest pain type: unspecified Qualified Code(s): R07.9 - Chest pain, unspecified Disposition: Admitted As Inpatient Condition: Good Time of Disposition: 16:19 Chest Pain HPI - General Chief Complaint: ED Chest Pain Stated Complaint: chest pain Time Seen by Provider: 07/06/17 14:56 Source: patient Mode of arrival: ambulatory Limitations: no limitations Vital Signs Reviewed: Yes Nursing Notes Reviewed: Yes - History of Present Illness HPI Narrative: Patient is a 71-year-old male with past medical history of hypertension, high cholesterol, diabetes. He also has a history of A. fib and is on Coumadin. He presents today due to lower left and right chest pain. He states that this is been going on for about a week and is getting worse. It is mainly when he coughs to takes a deep breath in and out. Denies any nausea or vomiting. He does admit to an episode of sweating this morning. He says that it comes and goes, does not radiate anywhere. He had a similar episode in April. He was admitted for this and had a negative heart catheter. Currently, the patient admits to mild right lower chest pain. Denies any rashes. Did not take any medicine at home today. Denies any history of stents, CA, cardiac bypass. Severity scale (1-10): 7 - Related Data Home Medications Medication Instructions Recorded Confirmed Atorvastatin [Lipitor] 40 mg PO HS 05/04/17 07/06/17 Metformin HCl [Metformin HCl ER] 1,000 mg PO DAILY 05/04/17 07/06/17 Aspirin [Lo-Dose Aspirin EC] 81 mg PO DAILY 07/06/17 07/06/17 Cholecalciferol (D-3) [Vitamin D] 1,000 unit PO DAILY 07/06/17 07/06/17 Docusate Sodium [Stool Softener] 100 mg PO DAILY 07/06/17 07/06/17 Metoprolol XL (24 HR) Succ [Toprol 50 mg PO DAILY 07/06/17 07/06/17 Xl] Warfarin [Coumadin] 3 mg PO DAILY 07/06/17 07/06/17 Previous Rx's Medication Instructions Recorded Lisinopril [Zestril] 5 mg PO DAILY #30 tab 05/06/17 Tizanidine HCl 4 mg PO TID #15 tablet 06/11/17 Allergies Allergy/AdvReac Type Severity Reaction Status Date / Time No Known Allergies Allergy Verified 07/06/17 13:36 All systems ED: reviewed and negative except as stated. Constitutional: Denies: fever Cardiovascular: Reports: chest pain. Denies: palpitations Respiratory: Reports: cough, dyspnea Gastrointestinal: Denies: abdominal pain, nausea, vomiting, diarrhea Chest Pain PMH - Past Medical History Medical history: Reports: atrial fibrillation, diabetes, hypertension Surgical history: Reports: non-contributory, orthopedic, other (right shoulder repair ), thyroidectomy (thyroid surgery ?excision of mass/cyst) Psychiatric history: Reports: no psych history - Social History Smoking Status: Never smoker Alcohol use: Reports: none Drug use: Reports: none Physical Exam - General Limitations: no limitations General appearance: alert, in no apparent distress - Head Head exam: atraumatic, normocephalic, normal inspection - Eye Eye exam: Present: normal appearance, PERRL, EOMI - ENT ENT exam: normal exam, normal oropharynx, mucous membranes moist - Neck Neck exam: Present: normal inspection, full ROM, trachea midline - Chest Chest inspection: Present: normal inspection, symmetric chest wall rise. Absent : tenderness - Respiratory Respiratory exam: Present: normal lung sounds bilaterally - Cardiovascular Cardiovascular exam: Present: regular rate, normal rhythm, normal heart sounds - Abdominal Exam Abdominal exam: Present: soft, Non-Tender. Absent: tenderness, distention, guarding, rebound, rigidity - Extremities Exam Extremities exam: Present: normal inspection, full ROM. Absent: tenderness, pedal edema - Neurological Exam Neurological exam: Present: alert, oriented X3 - Psychiatric Psychiatric exam: Present: normal affect, normal mood - Skin Skin exam: Present: warm, dry, intact, normal color Course Course Narrative: Systolic BP in 150s. The rest of the vitals within normal limits. Physical exam was benign. No wheezing or rhonchi. Heart regular rate and rhythm currently. No abdominal tenderness. No swelling of lower extremity is on exam. No respiratory distress. Labs show no elevation white blood cell count. Hemoglobin within normal limits. There is a mild elevation in troponin at 0.08. It has been elevated in the past. Chest x-ray was negative for any acute cardiopulmonary process. D-dimer was obtained due to pleuritic chest pain. It was in the 200s, negative. Patient is still having lower right-sided chest pain. We will admit for observation. We will also give a trial of nitroglycerin to see if this helps with the patient's pain. Vital Signs Temperature 98.0 F 07/06/17 13:32 Pulse Rate 68 07/06/17 13:32 Respiratory Rate 16 07/06/17 13:32 Blood Pressure 146/94 07/06/17 13:32 O2 Sat by Pulse Oximetry 95 07/06/17 13:32 Temperature 97.9 F 07/06/17 20:10 Pulse Rate 58 07/06/17 20:10 Respiratory Rate 16 07/06/17 20:10 Blood Pressure 146/85 07/06/17 20:10 O2 Sat by Pulse Oximetry 96 07/06/17 20:10 Oxygen Delivery Oxygen Delivery Room Air Chest Pain - MDM Narrative Medical decision making narrative: Systolic BP in 150s. The rest of the vitals within normal limits. Physical exam was benign. No wheezing or rhonchi. Heart regular rate and rhythm currently. No abdominal tenderness. No swelling of lower extremity is on exam. No respiratory distress. Labs show no elevation white blood cell count. Hemoglobin within normal limits. There is a mild elevation in troponin at 0.08. It has been elevated in the past. Chest x-ray was negative for any acute cardiopulmonary process. D-dimer was obtained due to pleuritic chest pain. It was in the 200s, negative. Patient is still having lower right-sided chest pain. We will admit for observation. We will also give a trial of nitroglycerin to see if this helps with the patient's pain. - Medical Records Medical records reviewed: Yes I reviewed the patient's medical records. - Lab Data Lab results reviewed: Yes I reviewed the patient's lab results. Result diagrams: 07/06/17 13:54 07/06/17 13:54 Lab Results 07/06/17 07/06/17 07/06/17 Range/Units 13:54 13:54 13:54 WBC 7.9 (4.3-11.1) K/mcL RBC 4.66 (4.19-5.50) M/mcL Hgb 14.1 (12.9-16.9) g/dL Hct 44.3 (37.5-50.1) % MCV 95.1 (83.0-100.0) fL MCH 30.3 (28.0-33.3) pg MCHC 31.8 (31.6-35.5) g/dL RDW 13.2 (11.5-14.5) % Plt Count 276 (140-400) K/mcL MPV 9.5 (9.4-12.4) fL Immature Gran % 0.4 (0-4) % Seg Neutrophils % 56.1 % Lymphocytes % 30.7 % Monocytes % 9.7 % Eosinophils % 2.5 % Basophils % 0.6 % Neutrophils # 4.5 (1.6-8.9) K/mcL Lymphocytes # 2.4 (0.6-4.6) K/mcL Monocytes # 0.8 (0.0-1.3) K/mcL Eosinophils # 0.2 (0.0-0.6) K/mcL Basophils # 0.1 (0.0-0.2) K/mcL PT (9.4-12.1) Seconds INR D-Dimer (0-500) ng/mLFEU Sodium 140 (136-145) mEq/L Potassium 4.2 (3.5-4.5) mEq/L Chloride 105 (98-109) mEq/L Carbon Dioxide 28 (19-29) mEq/L BUN 20 (8-26) mg/dL Creatinine 1.12 (0.72-1.25) mg/dL Est GFR ( Amer) > 60 (> 60) Est GFR (Non-Af Amer) > 60 (> 60) BUN/Creatinine Ratio 18 (6-26) Glucose 115 H (70-99) mg/dL Calculated Osmolality 294 (280-300) Calcium 9.5 (8.6-10.8) mg/dL Troponin I 0.08 H* (0-0.03) ng/mL 07/06/17 Range/Units 13:54 WBC (4.3-11.1) K/mcL RBC (4.19-5.50) M/mcL Hgb (12.9-16.9) g/dL Hct (37.5-50.1) % MCV (83.0-100.0) fL MCH (28.0-33.3) pg MCHC (31.6-35.5) g/dL RDW (11.5-14.5) % Plt Count (140-400) K/mcL MPV (9.4-12.4) fL Immature Gran % (0-4) % Seg Neutrophils % % Lymphocytes % % Monocytes % % Eosinophils % % Basophils % % Neutrophils # (1.6-8.9) K/mcL Lymphocytes # (0.6-4.6) K/mcL Monocytes # (0.0-1.3) K/mcL Eosinophils # (0.0-0.6) K/mcL Basophils # (0.0-0.2) K/mcL PT 22.3 H (9.4-12.1) Seconds INR 2.0 D-Dimer 291 (0-500) ng/mLFEU Sodium (136-145) mEq/L Potassium (3.5-4.5) mEq/L Chloride (98-109) mEq/L Carbon Dioxide (19-29) mEq/L BUN (8-26) mg/dL Creatinine (0.72-1.25) mg/dL Est GFR ( Amer) (> 60) Est GFR (Non-Af Amer) (> 60) BUN/Creatinine Ratio (6-26) Glucose (70-99) mg/dL Calculated Osmolality (280-300) Calcium (8.6-10.8) mg/dL Troponin I (0-0.03) ng/mL - Radiology Data Radiology results reviewed: Yes I reviewed the patient's radiology results. Chest X-Ray 07/06/17 13:34 IMPRESSION: Stable chest, with elevation of right hemidiaphragm and presumed atelectasis in the right lung base. Cardiomegaly. D/ / Malik Degroot MD / Malik Degroot MD Interpreting Provider: Malik Degroot MD - EKG Data EKG attestation: Yes I reviewed and interpreted this EKG. EKG results narrative: 07/06/2017 at 13:24. Sinus rhythm. Rate 70. VT 151. QRS 190. QTc 485. Normal axis. There are elevations in V1, V2, V3, V4. These are present on old EKG. There is T-wave inversion in lead 2, 3, aVF. These are also present on old EKG. Evidence of left bundle branch block. This was also on old EKG. Old EKG for comparison was on 05/04/2017. Heart Score - Score History: Slightly Suspicious Risk Factors: Equal/Greater than 3 risk factor or history of atherosclerotic disease Troponin: 1-3x normal limit S.B.A.R. - S.B.A.R. Situation: Demographics, MOA Background: Presenting Complaint, Relevant PMH, Meds, & Allergies Assessment: Vital Signs, Course and respsone to treatment, Exam Concerns, Patient/Family Expectation, Pertinant Lab Results Recommendation: Barrier(s) to disposition, Recommendation based on pending studies, treatments, or consults S.B.A.R. Report Given to: Mejia VelazquezBSantiAStiven Repor Time: 17:15 Attestation Statement - Attestation Attestation: I, Alistair Zafar, examined this patient and my medical decision-making was reviewed with the [employer] PAYRO[employer] CLERK/PA/Advanced Practice Nurse/Resident Physician. I agree with the documented findings, disposition and treatment plan as described except to the extent set forth below. 71-year-old male presents emergency Department with concerns of chest pain. Patient states he has had intermittent pain of the bilateral inferior lateral chest which is worse with palpation and with movement however this morning he developed acute onset of diaphoresis. Patient denies feeling near syncopal. He denies vomiting or persistent diaphoresis or palpitations. Initial troponin elevated at 0.08. He has had negative troponins in the past. EKG showed normal sinus rhythm with a rate of 70 with left bundle branch block. He does have mild elevations in V1 and V2 of his ST segments however these do not meet scarbossa criteria for CA. Patient's symptoms do sound like they are musculoskeletal however he should not have an elevation of his troponin. Patient will be admitted for observation and further evaluation.
[2017-07-06 15:11] LABS: BUN/Creatinine Ratio 18 (6-26); Blood Urea Nitrogen 20 mg/dL (8-26); Osmolality,Calculated 294 (280-300)
[2017-07-06] MEDS ORDERED: Aspirin 325 MG TABLET PO ONE (15:13)
[2017-07-06] MEDS ORDERED: Nitroglycerin 0.4 MG TAB.SUBL SL PRN (16:09)
[2017-07-06 16:26] LABS: Prothrombin Time 22.3 Seconds (9.4-12.1)
[2017-07-06] MEDS ORDERED: Acetaminophen 325 MG TABLET PO PRN (20:16)
[2017-07-06] MEDS ORDERED: Naloxone 0.4 MG/ML INJ IVP PRN (20:16)
[2017-07-06] MEDS ORDERED: Ondansetron 4 MG/2 ML VIAL IVP PRN (20:16)
[2017-07-06] MEDS ORDERED: *HR* Dextrose 50 % in Water (Syg) 50 ML SYRINGE IVP PRN (20:21)
[2017-07-06] MEDS ORDERED: Dextrose Gel 15 GM PO PRN ×2 (20:21)
[2017-07-06] MEDS ORDERED: D5% in Water 1,000 ML IVC PRN (20:21)
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
[2017-07-06] MEDS: tiZANidine 4 MG TABLET PO SCH (21:55)
[2017-07-06] MEDS: Insulin LISPRO 300 UNITS/3 ML VIAL SQ SCH (21:55)
[2017-07-06] MEDS: Nitroglycerin 1 INCH/GM PACKET TP SCH (21:56)
[2017-07-07 02:18] LABS: Basophils # 0.1 K/mcL (0.0-0.2); Basophils % 0.6 %; Eosinophils # 0.2 K/mcL (0.0-0.6); Eosinophils % 2.4 %; Hematocrit 40.1 % (37.5-50.1); Hemoglobin 12.7 g/dL (12.9-16.9); Immature Granulocytes % 0.1 % (0-4); Lymphocytes # 2.6 K/mcL (0.6-4.6); Lymphocytes % 31.1 %; Mean Corpuscular HGB Conc 31.7 g/dL (31.6-35.5); Mean Corpuscular Volume 94.6 fL (83.0-100.0); Mean Platelet Volume 9.7 fL (9.4-12.4); Monocytes # 0.8 K/mcL (0.0-1.3); Monocytes % 9.8 %; Neutrophils # 4.6 K/mcL (1.6-8.9); Platelet Count 251 K/mcL (140-400); Red Blood Count 4.24 M/mcL (4.19-5.50); Red Cell Distribution Width 13.1 % (11.5-14.5)
[2017-07-07 02:36] LABS: BUN/Creatinine Ratio 20 (6-26); Blood Urea Nitrogen 20 mg/dL (8-26); Calcium 8.9 mg/dL (8.6-10.8); Carbon Dioxide 28 mEq/L (19-29); Chloride 106 mEq/L (98-109); Chol/HDL Ratio 2.8 (0-4.9); Cholesterol 94 mg/dL (< 200); Glucose 137 mg/dL (70-99); HDL Cholesterol 34 mg/dL (40-59); LDL Cholesterol,Calculated 35 mg/dL (0-99); Magnesium 1.3 mg/dL (1.6-2.6); Osmolality,Calculated 293 (280-300); Potassium 3.8 mEq/L (3.5-4.5); Sodium 139 mEq/L (136-145); Triglycerides 125 mg/dL (< 150); eGFR For African Americans > 60 (> 60); eGFR For Non-African Americans > 60 (> 60)
[2017-07-07] MEDS: Nitroglycerin 1 INCH/GM PACKET TP SCH (05:53)
[2017-07-07] MEDS ORDERED: Magnesium Sulfate 2 GM in D5% in Water 100 ML IVPB ONE (07:35)
[2017-07-07] MEDS: Metoprolol XL (24 HR) Succ 50 MG TAB.ER.24H PO SCH (08:38)
[2017-07-07] MEDS: tiZANidine 4 MG TABLET PO SCH ×3 (08:38→21:08)
[2017-07-07] MEDS: Aspirin Enteric Coated 81 MG Tablet PO SCH (08:38)
[2017-07-07] MEDS: Insulin LISPRO 300 UNITS/3 ML VIAL SQ SCH ×4 (09:59→21:08)
--- NOTE | 2017-07-07 11:07 | Cardiology Consult Note ---
<ArthurPattie - Last Filed: 07/07/17 11:03> Date of Encounter: 07/07/17 Time of Encounter: 09:30 Assessment and Plan (1) Pulmonary embolism Current Visit: Yes Status: Acute Per cardiology: -Filling defect noted within right lower lobe of lung per CT. May be chronic. -On coumadin, of note, INR 2 on admission. -Management per primary service. -Can consider lower extremity duplex. -Can consider IVC filter. Qualifiers: Pulmonary embolism type: other Chronicity: unspecified Acute cor pulmonale presence: without acute cor pulmonale Qualified Code(s): I26.99 - Other pulmonary embolism without acute cor pulmonale (2) Non-ischemic cardiomyopathy Current Visit: Yes Status: Chronic Per cardiology: -Recent diagnosis of non-ischemic cardiomyopathy 04/2017. -05/06/17 LHC with 20% mid LAD with mild systolic bridging, 20% proximal circumflex, otherwise all other arteries angiographically free of disease. -05/04/17 ECho with LVEF 25%, mild concentric LVH, mild diastolic dysfunction, severely dilated left atrium, no significant valvular dysfunction, mild pulmonary hypertension, all squires hypokinetic. -Euvolemic on exam. -Follows with in outpatient setting. -ON beta alexi and jennifer inhibitor. -Will continue to monitor in outpatient setting. (3) Elevated troponin Current Visit: Yes Status: Acute Per cardiology: -Troponin 0.08, 0.07, 0.08, 0.05. Troponins flat and adynamic in the setting of PE. -Denies left sided chest pain. -ECG with no ischemic changes -Recent LHC with mild CAD and echo as above. -ON asa, statin, beta alexi, and jennifer inhibitor. -Do not suspect NSTEMI, suspect demand ischemia related to PE. NO cardiac rehab warranted. Discussion w patient/family: The assessment and plan as outlined above was discussed with the patient who expressed understanding and agreement. All questions were answered. Thank you for involving us in the care of your patient. Please call with any questions. Discussed and reviewed with . History of Present Illness Consult date: 07/07/17 Requesting physician: Nakia Leonard Consult reason: elevated troponin Chief complaint: right sided chest pain History of present illness: Mr. Li is a 71 year old male with a relevant past medical history of atrial fibrillation, non-ischemic cardiomyopathy, DM, hyperlipidemia, HTN, CHRISTINE. Patient states he was at home and noted right sided chest pain. Patient also reports associated shortness of breath. Patient presented to [facility] and noted to have RLL PE. Cardiology has been consulted for elevated troponin. Patient denies left sided chest pain. Past Med Surg Social Fam HX - Past Medical History Attestation: Yes The following information was validated with the patient. Source: patient, old records reviewed Medical history: atrial fibrillation, diabetes, hypertension, other Psychiatric history: no psych history - Past Surgical History Surgical History: non-contributory, orthopedic, other, thyroidectomy - Social History Smoking Status: Never smoker Smokeless Tobacco Status: No Alcohol use: none Drug use: none - Family History Mother Living Status: Hx Family Cardiac Disorders: Yes Brother Living Status: Hx Family Cardiac Disorders: Yes (heart transplant) Father Living Status: Medications and Allergies Atorvastatin [Lipitor] 40 mg PO HS 05/04/17 [History] Metformin HCl [Metformin HCl ER] 1,000 mg PO DAILY 05/04/17 [History] Lisinopril [Zestril] 5 mg PO DAILY #30 tab 05/06/17 [Rx] Tizanidine HCl 4 mg PO TID #15 tablet 06/11/17 [Rx] Aspirin [Lo-Dose Aspirin EC] 81 mg PO DAILY 07/06/17 [History] Cholecalciferol (D-3) [Vitamin D] 1,000 unit PO DAILY 07/06/17 [History] Docusate Sodium [Stool Softener] 100 mg PO DAILY 07/06/17 [History] Metoprolol XL (24 HR) Succ [Toprol Xl] 50 mg PO DAILY 07/06/17 [History] Warfarin [Coumadin] 3 mg PO DAILY 07/06/17 [History] 3 Allergy/AdvReac Type Severity Reaction Status Date / Time No Known Allergies Allergy Verified 07/06/17 13:36 All Systems Review: A 10-system review of systems was performed and is negative for pertinent findings except as documented above in the HPI. - Cardiovascular Cardiovascular: as per HPI, dyspnea at rest, dyspnea on exertion (Right sided chest pain) Physical Examination Vital Signs, Last 4 Hours Temp Pulse Resp BP Pulse Ox 07/07/17 10:41 97.9 F 60 12 154/84 92 General: Conversant, No Apparent Distress HEENT: Atraumatic, Normocephaly, Mucus Membranes Moist Neck: No JVD, Normal carotid pulses Cardiac: Reg Rate and Rhythm, Normal S1 and S2, No Murmur Lungs: Normal Breath Sounds, No Wheeze, Rales, Rhonchi Neuro: Alert and responsive, No focal deficits noted Abdomen: Soft, Non-Tender Skin: No rashes noted on visualized skin Musculoskeletal: No Chest Wall Tenderness Extremities: No Clubbing, No Cyanosis, No Edema, Normal Pulses Results 07/07/17 02:06 07/07/17 02:06 Lab Results Impressions Chest X-Ray 07/06/17 13:34 IMPRESSION: Stable chest, with elevation of right hemidiaphragm and presumed atelectasis in the right lung base. Cardiomegaly. D/ / Malik Degroot MD / Malik Degroot MD Interpreting Provider: Malik Degroot MD Chest CTA 07/06/17 21:08 IMPRESSION: Filling defect within the right lower lobe pulmonary artery. Again, this may be adherent to the pulmonary arterial wall and therefore the age is indeterminate, and this may be chronic. No other filling defects are identified. Findings were discussed with Dr. Devlin At 10:25 pm on 07/06/2017. D/ / Dandy Harris MD / Dandy Harris MD Interpreting Provider: Dandy Harris MD Active Medications Acetaminophen (Tylenol) 650 mg PO Q6HR PRN PRN Reason: Mild Pain (1-3) Stop: 01/05/18 20:17 Aspirin (Aspirin Ec) 81 mg PO DAILY KIM Stop: 01/06/18 09:01 Last Admin: 07/07/17 08:38 Dose: 81 mg Atorvastatin Calcium (Lipitor) 40 mg PO HS KIM Stop: 01/05/18 21:01 Dextrose/Water (Dextrose 50% (Syg)) 25 ml IVP AD PRN PRN Reason: Hypoglycemia Stop: 01/05/18 20:22 Docusate Sodium (Colace) 100 mg PO DAILY [facility] PRN Reason: Protocol Stop: 01/06/18 09:01 Last Admin: 07/07/17 08:38 Dose: 100 mg Glucagon (Glucagen) 1 mg IM ONCE PRN PRN Reason: Hypoglycemia Stop: 01/05/18 20:22 Glucose (Gluctose) 15 gm PO ONCE PRN PRN Reason: Hypoglycemia Stop: 01/05/18 20:22 Glucose (Gluctose) 30 gm PO ONCE PRN PRN Reason: Hypoglycemia Stop: 01/05/18 20:22 Dextrose (Dextrose 5%) 1,000 mls @ 100 mls/hr IVC .Q10H PRN PRN Reason: HYPOGLYCEMIA Stop: 01/05/18 20:22 Insulin Human Lispro (Humalog) 0 units SQ HS [facility] PRN Reason: Protocol Stop: 01/05/18 21:01 Last Admin: 07/06/17 21:55 Dose: Not Given Insulin Human Lispro (Humalog) 0 units SQ TIDAC [facility] PRN Reason: Protocol Stop: 01/06/18 07:31 Last Admin: 07/07/17 09:59 Dose: Not Given Lisinopril (Zestril) 5 mg PO DAILY [facility] PRN Reason: Protocol Stop: 01/06/18 09:01 Last Admin: 07/07/17 08:38 Dose: 5 mg Metoprolol Succinate (Toprol Xl) 50 mg PO DAILY [facility] Stop: 01/06/18 09:01 Last Admin: 07/07/17 08:38 Dose: 50 mg Naloxone HCl (Narcan) 0.4 mg IVP Q2MIN PRN PRN Reason: Opioid Reversal Stop: 01/05/18 20:17 Naproxen (Naprosyn) 250 mg PO BID [facility] PRN Reason: Protocol Stop: 01/06/18 10:01 Last Admin: 07/07/17 10:26 Dose: 250 mg Nitroglycerin (Nitroglycerin) 0.4 mg SL Q5MIN PRN PRN Reason: Chest Pain Stop: 01/05/18 16:10 Nitroglycerin (Nitroglycerin) 1 inch TP Q6HNTG [facility] Stop: 01/05/18 21:16 Last Admin: 07/07/17 05:53 Dose: 1 inch Ondansetron HCl (Zofran) 4 mg IVP Q8HR PRN PRN Reason: Nausea And Vomiting Stop: 01/05/18 20:17 Tizanidine HCl (Zanaflex) 4 mg PO TID [facility] Stop: 01/05/18 21:01 Last Admin: 07/07/17 08:38 Dose: 4 mg Warfarin Sodium (Coumadin) 3 mg PO DAILY@1800 KIM Stop: 01/06/18 18:01 Warfarin Sodium (Coumadin Perpt) 1 each PO DAILY@1800 PRN PRN Reason: SEE COMMENTS Stop: 01/06/18 18:01 Laboratory Tests 07/06/17 07/06/17 07/06/17 13:54 13:54 22:28 Hgb INR 2.0 Creatinine Troponin I 0.08 H* 0.07 H* 07/07/17 07/07/17 07/07/17 02:06 02:06 02:06 Hgb 12.7 L INR Creatinine 0.99 Troponin I 0.08 H* 07/07/17 07:52 Hgb INR Creatinine Troponin I 0.05 H* - Imaging and Cardiology Chest Xray: report reviewed Echo: report reviewed Cardiac cath: report reviewed - EKG Interpretation EKG results cardiology: personally reviewed (ECG with sinus rhythm, left bundle branch block, HR 70.), other (Telemetry reviewed with average HR 71, sinus rhythm. PVCs noted.) Consult Discharge Plan - Plan Referrals: Angel Del Rosario MD [Primary Care Provider] - 07/17/17 2:00 pm <Angeles Phillips - Last Filed: 07/07/17 12:54> Date of Encounter: 07/07/17 Assessment and Plan Discussion w patient/family: The assessment and plan as outlined above was discussed with the patient and/or family members who expressed understanding and agreement. All questions were answered. Thank you for involving us in the care of your patient. Please call with any questions. History of Present Illness History of present illness: Mr. Li is a 71 year old male All Systems Review: A 10-system review of systems was performed and is negative for pertinent findings except as documented above in the HPI. Physical Examination Vital Signs, Last 4 Hours Temp Pulse Resp BP Pulse Ox 07/07/17 10:41 97.9 F 60 12 154/84 92 Results 07/07/17 02:06 07/07/17 02:06 Lab Results 07/06/17 07/07/17 07/07/17 22:28 02:06 02:06 WBC 8.2 Hgb 12.7 L Hct 40.1 Plt Count 251 Sodium Potassium Chloride Carbon Dioxide BUN Creatinine Glucose Calcium Magnesium Troponin I 0.07 H* 0.08 H* 07/07/17 07/07/17 02:06 07:52 WBC Hgb Hct Plt Count Sodium 139 Potassium 3.8 Chloride 106 Carbon Dioxide 28 BUN 20 Creatinine 0.99 Glucose 137 H Calcium 8.9 Magnesium 1.3 L Troponin I 0.05 H* - Attending Attestation I examined this patient and my medical decision-making was reviewed with the Resident Physician. I agree with the documented findings, disposition and treatment plan. Mr. Li has mildly elevated, flat troponin elevation which appears possibly to be chronic (also seen in April 2017). This is also in the setting of a filling defect on CT. ECG demonstrates no ischemic changes. He had a recent LHC with mild CAD. His right sided chest discomfort is pleuritic. Troponin elevation does not appear to represent an ACS in this setting. Otherwise, he follows with Dr. Angel for NICM, EF 20% and atrial fibrillation. Recommend continuing BB and ACEI. He does not appear fluid overloaded. Replete electrolytes. He is anticoagulated with coumadin. Filling defect noted in RLL on CT of unclear significance. This could possibly represent a pulmonary embolism. Patient is on coumadin but INR recently has been just below therapeutic. Will defer to primary team for further evaluation. Recommend considering Pulmonary evaluation to review CT. Can consider LE US to evaluate for DVT. No further recommendations at this time.
--- NOTE | 2017-07-07 17:03 | Internal Med Progress Note ---
Date of Encounter: 07/07/17 Time of Encounter: 10:00 - Assessment and plan (1) Essential hypertension Current Visit: No Status: Chronic Assessment and plan: Continue home medications (2) Diabetes mellitus Current Visit: No Status: Chronic Assessment and plan: Patient takes metformin at home. Will cover patient with sliding scale when patient in hospital Qualifiers: Diabetes mellitus type: type 2 Diabetes mellitus complication status: with unspecified complications Diabetes mellitus exterminator helper insulin use: without exterminator helper use Qualified Code(s): E11.8 - Type 2 diabetes mellitus with unspecified complications (3) DVT prophylaxis Current Visit: No Status: Acute Assessment and plan: Patient is on Coumadin (4) Chest pain Current Visit: Yes Status: Acute Assessment and plan: Etiology is undetermined. Less likely ischemic as the patient has a recent LHC showing minimal stenosis. cardiology consult appreciated. - Pain is inducible, consider muscular pain, place patient on naproxen 250mg twice a day. - Patient had a CTA shows a probably chronic PE on right lobe. Patient is on full anti-coagulation already. Continue close monitoring patient. Will check US legs to r/o DVT. - We will repeat echocardiogram. Qualifiers: Chest pain type: intercostal pain Qualified Code(s): R07.82 - Intercostal pain (5) Elevated troponin Current Visit: Yes Status: Acute Assessment and plan: Cardiology consul on case, consider demand ischemia (6) Afib Current Visit: No Status: Chronic Assessment and plan: Heart rate is well controlled. On Coumadin for anticoagulation Qualifiers: Atrial fibrillation type: paroxysmal Qualified Code(s): I48.0 - Paroxysmal atrial fibrillation (7) Pulmonary embolism Current Visit: Yes Status: Acute Assessment and plan: Patient was found right lower lobe pulmonary artery wall filling defect. Consider chronic PE. Patient is on anticoagulation already. - Continue anticoagulation. - US leg to rule out DVT - Repeat echocardiogram to rule out RV strain or pulmonary hypertension Qualifiers: Pulmonary embolism type: other Chronicity: chronic Acute cor pulmonale presence: without acute cor pulmonale Qualified Code(s): I27.82 - Chronic pulmonary embolism (8) Non-ischemic cardiomyopathy Current Visit: Yes Status: Chronic Assessment and plan: Patient on beta alexi and NANDO inhibitor. Appears euvolemic now. - Time Spent With Patient 25 - 35 minutes - Subjective Interval history: Patient is a 71-year-old male admitted for chest pain. Past medical history is significant for A. fib, diabetes, hypertension, CHF. I saw and examined the patient today. Patient is still complaining of right- sided chest pain with chest wall tenderness. Vitals are stable. Cardiology consult appreciated. We will continue monitor patient closely. - Constitutional Vitals: Temp Pulse Resp BP Pulse Ox 97.8 F 58 12 141/84 92 07/07/17 16:16 07/07/17 16:16 07/07/17 16:16 07/07/17 16:16 07/07/17 16:16 General appearance: Present: cooperative, A&O X 3, pleasant, no acute distress - Head Head exam: Present: atraumatic, normocephalic - Eye Eye exam: Present: PERRL, conjuntiva pink, sclera anicteric Pupils: Present: PERRL - Neck Neck exam general surgery: Present: supple, trachea midline. Absent: lymphadenopathy - Respiratory Respiratory exam: Present: chest wall tenderness (On the right side), CTAB. Absent: accessory muscle use, rales, rhonchi, wheezes - Cardiovascular Cardiovascular exam: Present: RRR, +S1, +S2. Absent: diastolic murmur, gallop, rubs, systolic murmur - GI/Abdominal GI/Abdominal exam: Present: normal bowel sounds, soft, no peritoneal signs. Absent: distended, tenderness - Extremities Exam Extremities exam: Present: warm, radial pulses palpable and symmetrical. Absent : calf tenderness, cyanotic, pedal edema - Neurological Exam Neurological exam: Present: CN II-XII intact, oriented X3, no focal deficits. Absent: pronater drift, facial droop, speech deficit - Skin Skin exam: Present: dry, intact Internal Medicine: Result - Labs CBC & Chem 7: 07/07/17 02:06 07/07/17 02:06 Labs: Cardiac Enzymes 07/07/17 Range/Units 13:49 Troponin I 0.04 H* (0-0.03) ng/mL - ABG Interpretation ABG results: PT/INR, D-dimer PT 22.3 Seconds (9.4-12.1) H 07/06/17 13:54 D-Dimer 291 ng/mLFEU (0-500) 07/06/17 13:54 Consult Discharge Plan - Plan Referrals: Angel Del Rosario MD [Primary Care Provider] - 07/17/17 2:00 pm
[2017-07-07] MEDS ORDERED: *HR* Warfarin 3 MG TABLET PO SCH (18:00)
[2017-07-07] MEDS ORDERED: Warfarin perPT PO PRN (18:00)
--- NOTE | 2017-07-07 18:40 | Electrocardiograph Report ---
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
[2017-07-08 05:49] LABS: Prothrombin Time 22.2 Seconds (9.4-12.1)
[2017-07-08 06:24] LABS: Basophils # 0.1 K/mcL (0.0-0.2); Basophils % 0.7 %; Eosinophils # 0.2 K/mcL (0.0-0.6); Eosinophils % 2.8 %; Hematocrit 40.7 % (37.5-50.1); Hemoglobin 13.1 g/dL (12.9-16.9); Immature Granulocytes % 0.3 % (0-4); Lymphocytes # 2.2 K/mcL (0.6-4.6); Lymphocytes % 31.9 %; Mean Corpuscular HGB Conc 32.2 g/dL (31.6-35.5); Mean Corpuscular Hemoglobin 30.6 pg (28.0-33.3); Mean Corpuscular Volume 95.1 fL (83.0-100.0); Mean Platelet Volume 9.8 fL (9.4-12.4); Monocytes # 0.8 K/mcL (0.0-1.3); Monocytes % 11.3 %; Neutrophils # 3.6 K/mcL (1.6-8.9); Platelet Count 256 K/mcL (140-400); Red Blood Count 4.28 M/mcL (4.19-5.50); Red Cell Distribution Width 13.2 % (11.5-14.5)
[2017-07-08 07:05] LABS: BUN/Creatinine Ratio 21 (6-26); Blood Urea Nitrogen 18 mg/dL (8-26); Calcium 9.1 mg/dL (8.6-10.8); Carbon Dioxide 25 mEq/L (19-29); Chloride 107 mEq/L (98-109); Glucose 115 mg/dL (70-99); Osmolality,Calculated 289 (280-300); Potassium 4.3 mEq/L (3.5-4.5); Sodium 138 mEq/L (136-145); eGFR For African Americans > 60 (> 60); eGFR For Non-African Americans > 60 (> 60)
[2017-07-08] MEDS: Insulin LISPRO 300 UNITS/3 ML VIAL SQ SCH ×3 (08:32→17:05)
[2017-07-08] MEDS: tiZANidine 4 MG TABLET PO SCH ×2 (08:33→16:00)
[2017-07-08] MEDS: Aspirin Enteric Coated 81 MG Tablet PO SCH (08:33)
[2017-07-08] MEDS: Metoprolol XL (24 HR) Succ 50 MG TAB.ER.24H PO SCH (08:33)
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
[2017-07-08] MEDS ORDERED: Perflutren Lipid Microsphere 1.3 ML in 0.9 % Sodium Chloride 8.7 ML IVP ONE (09:18)
[2017-07-08 15:42] VITALS: BP 136/85
[2017-07-08] MEDS ORDERED: *HR* Warfarin 4 MG TABLET PO STA (16:02)
--- NOTE | 2017-07-08 16:03 | Discharge Summary ---
Date of Encounter: 07/08/17 Time of Encounter: 10:00 - Discharge Diagnosis (1) Essential hypertension Priority: Secondary Status: Chronic (2) Diabetes mellitus Priority: Secondary Status: Chronic Qualifiers: Diabetes mellitus type: type 2 Diabetes mellitus complication status: with unspecified complications Diabetes mellitus halfway insulin use: without halfway use Qualified Code(s): E11.8 - Type 2 diabetes mellitus with unspecified complications (3) DVT prophylaxis Priority: Secondary Status: Acute (4) Chest pain Priority: Primary Status: Acute Qualifiers: Chest pain type: intercostal pain Qualified Code(s): R07.82 - Intercostal pain (5) Elevated troponin Priority: Primary Status: Acute (6) Afib Priority: Secondary Status: Chronic Qualifiers: Atrial fibrillation type: paroxysmal Qualified Code(s): I48.0 - Paroxysmal atrial fibrillation (7) Pulmonary embolism Priority: Primary Status: Acute Qualifiers: Pulmonary embolism type: other Chronicity: chronic Acute cor pulmonale presence: without acute cor pulmonale Qualified Code(s): I27.82 - Chronic pulmonary embolism (8) Non-ischemic cardiomyopathy Priority: Secondary Status: Chronic - Discharge Medications Prescriptions: Naproxen [Naprosyn] 250 mg PO BID #14 tablet Home Medications: Atorvastatin [Lipitor] 40 mg PO HS 05/04/17 [History] Metformin HCl [Metformin HCl ER] 1,000 mg PO DAILY 05/04/17 [History] Lisinopril [Zestril] 5 mg PO DAILY #30 tab 05/06/17 [Rx] Tizanidine HCl 4 mg PO TID #15 tablet 06/11/17 [Rx] Aspirin [Lo-Dose Aspirin EC] 81 mg PO DAILY 07/06/17 [History] Cholecalciferol (D-3) [Vitamin D] 1,000 unit PO DAILY 07/06/17 [History] Docusate Sodium [Stool Softener] 100 mg PO DAILY 07/06/17 [History] Metoprolol XL (24 HR) Succ [Toprol Xl] 50 mg PO DAILY 07/06/17 [History] Warfarin [Coumadin] 3 mg PO DAILY 07/06/17 [History] Naproxen [Naprosyn] 250 mg PO BID #14 tablet 07/08/17 [Rx] Omeprazole 20 mg PO DAILY #14 tablet. 07/08/17 [Rx] Warfarin [Coumadin] 3 mg PO 1800 #30 tablet 07/08/17 [Rx] Allergies/Adverse Reactions: 3 Allergy/AdvReac Type Severity Reaction Status Date / Time No Known Allergies Allergy Verified 07/06/17 13:36 Procedures/tests Complete & Pending: Procedures Performed prior 72 hours Category Date Time Status EV limited echo w enhance Routine Y 07/08/17 16:44 Completed EV venous imaging LE BI Routine Y 07/08/17 16:44 Completed - Notes to Outpatient Provider 1. Patient has been found PE, but probably chronic, discussed with pharmacy, will recommend to set pt's INR goal to 2.5-3. Please closely f/u the INR level. Date of admission: 07/07/17 13:39 Primary care physician: Angel Del Rosario MD Consults: 07/08/17 07:38 Consult to Pulmonology [CONS] Routine Consulting Provider: [facility] Reason for Consult: chronic PE Call Completed: No Discharging clinician: Melody Mondragon Anticipated date of discharge: 07/08/17 - Patient Status Disposition: Home, Self-Care Condition: Good Functional capacity at discharge: independent ambulation Overall status at discharge: patient is back to baseline - Discharge Instructions Follow Up With: Angel Del Rosario MD [Primary Care Provider] - 07/17/17 2:00 pm - Diet and Activity Activity: increase activity as tolerated Diet: low salt diet Interval History: HPI: Mr. Florence is a 44 year old male who was transferred from the [facility] to our ER for concerns of alcohol withdrawal. He checked himself in today for alcohol rehabilitation. However, he stopped drinking alcohol about 2-3 days ago and was having withdrawal symptoms. He was sent to the urgent care who then sent him to the ER here. He had laboratory evidence of pancreatitis. CT scan was performed which did not show any pancreatitis, but he did have hiatal hernia and moderate thickening of his esophagus. No labs were drawn in ER until I requested them. I reviewed his labs from the [facility], which revealed profound hypokalemia and some hyponatremia. Upon my assessment of the patient, he states he feels better. He has been having protracted nausea and vomiting for the last couple days and as recently as one hour ago. He denies any fevers or diarrhea. He denies any hallucinations. He has been shaky and jittery, however. He has also been quite tremulous. He stopped drinking about 2 1/2 days ago. He states he normally drinks about 1/5 of hard liquor every day. He denies any history of cirrhosis, variceal bleeds, or any prior GI bleeding. He does have a history of GERD which is easily treated by Prilosec. Hospital course: Mr. Li is a 71 year old male admitted for chest pain. Patient was placed on continuous cardiac monitoring, tract 3 sets of troponin, which is a mild elevated, echocardiogram. Cardiology consult was called, no indication for LHC since patient had LHC just 3 months ago. Patient was found chronic PE, pulmonology consult was called, recommend the patient to switch to NOAC. However, after dumont check, patient has to pay over $200 per month for NOAC. Discussed with pharmacy, will keep patient on Coumadin but set INR goal to 2.5- 3. Discussed with patient, patient and the family verbalized understanding and agreement. I saw and examined the patient today. The chest wall pain has subsided on naproxen. Vital signs stable. Patient is stable to discharge home and follow- up with PCP as outpatient. Patient was prescribed naproxen for 7 days, together with omeprazole for GI prophylaxis. - Time Spent with Patient Total time spent providing and/or coordinating discharge services: 25 minutes Less than 30 minutes - Constitutional Vitals: Temp Pulse Resp BP Pulse Ox 97.8 F 58 12 136/85 92 07/08/17 15:39 07/08/17 15:39 07/08/17 15:39 07/08/17 15:39 07/08/17 15:39 General appearance: Present: cooperative, A&O X 3, pleasant, no acute distress - Head Head exam: Present: atraumatic, normocephalic - Eye Eye exam: Present: PERRL, conjuntiva pink, sclera anicteric Pupils: Present: PERRL - Neck Neck exam general surgery: Present: supple, trachea midline. Absent: lymphadenopathy - Respiratory Respiratory exam: Present: chest wall tenderness, CTAB. Absent: accessory muscle use, rales, rhonchi, wheezes - Cardiovascular Cardiovascular exam: Present: RRR, +S1, +S2. Absent: diastolic murmur, gallop, rubs, systolic murmur - GI/Abdominal GI/Abdominal exam: Present: normal bowel sounds, soft, no peritoneal signs. Absent: distended, tenderness - Extremities Exam Extremities exam: Present: warm, radial pulses palpable and symmetrical. Absent : calf tenderness, cyanotic, pedal edema - Neurological Exam Neurological exam: Present: CN II-XII intact, oriented X3, no focal deficits. Absent: pronater drift, facial droop, speech deficit - Skin Skin exam: Present: dry, intact
[2017-07-08] MEDS ORDERED: FLUARIX QUAD 2017-18 36MOS UP/PF 0.5 ML SYRINGE IM ONE (16:47)
[2017-07-08] MEDS ORDERED: *HR* Rivaroxaban 10 MG TABLET PO SCH (17:00)
[2017-07-08] MEDS ORDERED: *HR* Warfarin 4 MG TABLET PO ONE (18:00)
--- NOTE | 2017-07-10 13:51 | Venous Imaging Report ---
LE Venous Duplex Patient Name:Juan Carlos Li Order Number:[id number] Procedure Date:07/08/2017 Date:4Age:71 yrs Gender:Male Location:[facility] Room #: 2NE20 Continuous Crusher Operator:Xavier Yung LIDIA Referring MD:Melody Mondragon MD Reading MD:Angel Deras MD Primary Indications:Pulmonary embolism Secondary Indications: Risk Factors Yes/No Anticoagulants Yes Impressions: Bilateral lower extremity: normal superficial and deep exam. Recommendations: After imaging the patient returned to their room. Findings Venous Duplex Results: Right: Venous imaging of the lower extremity reveals full patency and normal vessel compressibility of the right distal iliac, right common femoral, right superficial femoral, right popliteal, right posterior tibial, right peroneal, right great saphenous and right lesser saphenous. Doppler signals in the evaluated veins were normal. Left: Venous imaging of the lower extremity reveals full patency and normal vessel compressibility of the left distal iliac, left common femoral, left superficial femoral, left popliteal, left posterior tibial, left peroneal, left great saphenous and left lesser saphenous. Doppler signals in the evaluated veins were normal. Prior Study: No change compared to prior study dated: 07/08/2017. Lower Extremity Venous Duplex Side Vein Compress Spontaneous Flow Augment Diameter (cm) Depth (cm) Right Distal Iliac Normal Yes Phasic Yes Right Common Femoral Normal Yes Phasic Yes Right Superficial Femoral Normal Yes Phasic Yes Right Popliteal Normal Yes Phasic Yes Right Posterior Tibial Normal Yes Phasic Yes Right Peroneal Normal Yes Phasic Yes Right Great Saphenous Normal Yes Phasic Yes Right Lesser Saphenous Normal Yes Phasic Yes Left Distal Iliac Normal Yes Phasic Yes Left Common Femoral Normal Yes Phasic Yes Left Superficial Femoral Normal Yes Phasic Yes Left Popliteal Normal Yes Phasic Yes Left Posterior Tibial Normal Yes Phasic Yes Left Peroneal Normal Yes Phasic Yes Left Great Saphenous Normal Yes Phasic Yes Left Lesser Saphenous Normal Yes Phasic Yes Updated by Angel Deras MD on 07/10/2017 1:44:16 PM electronically signed on 07/10/2017 1:44:35 PM with status of Final
--- NOTE | 2017-07-20 11:45 | Discharge Summary ---
Date of Encounter: 07/08/17 Time of Encounter: 10:00 - Discharge Diagnosis (1) Essential hypertension Priority: Secondary Status: Chronic (2) Diabetes mellitus Priority: Secondary Status: Chronic Qualifiers: Diabetes mellitus type: type 2 Diabetes mellitus complication status: with unspecified complications Diabetes mellitus prison insulin use: without prison use Qualified Code(s): E11.8 - Type 2 diabetes mellitus with unspecified complications (3) DVT prophylaxis Priority: Secondary Status: Acute (4) Chest pain Priority: Primary Status: Acute Qualifiers: Chest pain type: intercostal pain Qualified Code(s): R07.82 - Intercostal pain (5) Elevated troponin Priority: Primary Status: Acute (6) Afib Priority: Secondary Status: Chronic Qualifiers: Atrial fibrillation type: paroxysmal Qualified Code(s): I48.0 - Paroxysmal atrial fibrillation (7) Pulmonary embolism Priority: Primary Status: Chronic Qualifiers: Pulmonary embolism type: other Chronicity: chronic Acute cor pulmonale presence: without acute cor pulmonale Qualified Code(s): I27.82 - Chronic pulmonary embolism (8) Non-ischemic cardiomyopathy Priority: Secondary Status: Chronic - Discharge Medications Prescriptions: Naproxen [Naprosyn] 250 mg PO BID #14 tablet Omeprazole 20 mg PO DAILY #14 tablet. Warfarin [Coumadin] 3 mg PO 1800 #30 tablet Home Medications: Atorvastatin [Lipitor] 40 mg PO HS 05/04/17 [History] Metformin HCl [Metformin HCl ER] 1,000 mg PO DAILY 05/04/17 [History] Lisinopril [Zestril] 5 mg PO DAILY #30 tab 05/06/17 [Rx] Tizanidine HCl 4 mg PO TID #15 tablet 06/11/17 [Rx] Aspirin [Lo-Dose Aspirin EC] 81 mg PO DAILY 07/06/17 [History] Cholecalciferol (D-3) [Vitamin D] 1,000 unit PO DAILY 07/06/17 [History] Docusate Sodium [Stool Softener] 100 mg PO DAILY 07/06/17 [History] Metoprolol XL (24 HR) Succ [Toprol Xl] 50 mg PO DAILY 07/06/17 [History] Warfarin [Coumadin] 3 mg PO DAILY 07/06/17 [History] Naproxen [Naprosyn] 250 mg PO BID #14 tablet 07/08/17 [Rx] Omeprazole 20 mg PO DAILY #14 tablet. 07/08/17 [Rx] Warfarin [Coumadin] 3 mg PO 1800 #30 tablet 07/08/17 [Rx] Allergies/Adverse Reactions: 3 Allergy/AdvReac Type Severity Reaction Status Date / Time No Known Allergies Allergy Verified 07/06/17 13:36 - Notes to Outpatient Provider 1. Patient has been found PE, but probably chronic, discussed with pharmacy, will recommend to set pt's INR goal to 2.5-3. Please closely f/u the INR level. Date of admission: 07/07/17 13:39 Primary care physician: Angel Del Rosario MD Consults: 07/08/17 07:38 Consult to Pulmonology [CONS] Routine Consulting Provider: [facility] Reason for Consult: chronic PE Call Completed: No Discharging clinician: Melody Mondragon Anticipated date of discharge: 07/08/17 - Patient Status Disposition: Home, Self-Care Condition: Good - Discharge Instructions Instructions: Naproxen (By mouth), Warfarin (By mouth), Omeprazole (By mouth) Follow Up With: Angel Del Rosario MD [Primary Care Provider] - 07/17/17 2:00 pm - Diet and Activity Activity: increase activity as tolerated Diet: advance to your usual diet, diabetic diet, low salt diet Interval History: HPI on admission: Mr. Li is a 71 year old male with history of hypertension diabetes A. fib on Coumadin, CHRISTINE according to the patient he has been experiencing right-sided sharp chest pain which is worse when he coughs/and upon inspiration. The pain is intermittent and usually resolves on its own. He had increasing shortness of breath. This morning he did have an episode of chest pain 7/10 with shortness of breath and diaphoresis. He he did have a workup in April for similar episode and at that time he was found to be in A. fib RVR. He was admitted and had a cardiac catheter which revealed minimal CAD. Echo systolic dysfunction with EF 25% mild pulmonary hypertension and mild diastolic dysfunction.. He denies any other heart history no stents VT or cardiac bypass. He presented to the ER for evaluation. According to ER records chest x -ray with elevated right hemidighrapm lab work showed elevated troponin 0.08. He was given aspirin and he has been admitted for further workup and evaluation. Presently patient is complaining of some 4 out of 10 right-sided chest pain, which is reproducible. Lung sounds are clear heart sounds are regular S1 and S2 with no murmurs clicks, murmurs noted. Abdomen soft and nontender. No pedal edema noted. Presently he is hemodynamically stable. Hospital course: Mr. Li is a 71 year old male admitted for chest pain. Patient was placed on continuous cardiac monitoring, tract 3 sets of troponin, which is a mild elevated, echocardiogram. Cardiology consult was called, no indication for LHC since patient had LHC just 3 months ago. Patient was found chronic PE, pulmonology consult was called, recommend the patient to switch to NOAC. However, after dumont check, patient has to pay over $200 per month for NOAC. Discussed with pharmacy, will keep patient on Coumadin but set INR goal to 2.5- 3. Discussed with patient, patient and the family verbalized understanding and agreement. I saw and examined the patient upon discharge. The chest wall pain has subsided on naproxen. Vital signs stable. Patient is stable to discharge home and follow-up with PCP as outpatient. Patient was prescribed naproxen for 7 days, together with omeprazole for GI prophylaxis. - Time Spent with Patient Total time spent providing and/or coordinating discharge services: 25 min Less than 30 minutes - Constitutional Vitals: Temp Pulse Resp BP Pulse Ox 97.8 F 58 12 136/85 92 07/08/17 15:39 07/08/17 15:39 07/08/17 15:39 07/08/17 15:39 07/08/17 15:39 General appearance: Present: cooperative, A&O X 3, pleasant, no acute distress - Head Head exam: Present: atraumatic, normocephalic - Eye Eye exam: Present: PERRL, conjuntiva pink, sclera anicteric Pupils: Present: PERRL - Neck Neck exam general surgery: Present: supple, trachea midline. Absent: lymphadenopathy - Respiratory Respiratory exam: Present: chest wall tenderness, CTAB. Absent: accessory muscle use, rales, rhonchi, wheezes - Cardiovascular Cardiovascular exam: Present: RRR, +S1, +S2. Absent: diastolic murmur, gallop, rubs, systolic murmur - GI/Abdominal GI/Abdominal exam: Present: normal bowel sounds, soft, no peritoneal signs. Absent: distended, tenderness - Extremities Exam Extremities exam: Present: warm, radial pulses palpable and symmetrical. Absent : calf tenderness, cyanotic, pedal edema - Neurological Exam Neurological exam: Present: CN II-XII intact, oriented X3, no focal deficits. Absent: pronater drift, facial droop, speech deficit - Skin Skin exam: Present: dry, intact
== END 2017-07-08 17:44 | disposition home or self-care (01) | DRG 176 ==
LOC: 2NENU 13:21 → EMEROO 13:21 → 2NENU 19:49
PROVIDERS: ADMIT Internal Medicine; ATTEND Internal Medicine

== ENCOUNTER 2018-03-27 14:59 | Inpatient (IN) ==
[2018-03-27] MEDS ORDERED: Aspirin 81 MG TAB.CHEW PO ONE (15:05)
[2018-03-27] MEDS ORDERED: 0.9 % Sodium Chloride 500 ML IVC ONE ×2 (15:05→15:59)
[2018-03-27] MEDS ORDERED: *HR* Metoprolol 5 MG/5 ML VIAL IVP ONE ×3 (15:18→16:16)
[2018-03-27 15:26] LABS: INR 1.9; Prothrombin Time 20.7 Seconds (9.4-12.1)
[2018-03-27 15:40] LABS: BUN/Creatinine Ratio 20 (6-26); Blood Urea Nitrogen 24 mg/dL (8-23); Calcium 9.6 mg/dL (8.6-10.3); Carbon Dioxide 19 mEq/L (23-29); Chloride 104 mEq/L (98-107); Glucose 202 mg/dL (70-105); Osmolality,Calculated 292 (280-300); Potassium 3.2 mEq/L (3.5-5.1); Sodium 136 mEq/L (136-145); eGFR For African Americans > 60 (> 60); eGFR For Non-African Americans 59 (> 60)
[2018-03-27] MEDS ORDERED: Potassium Chloride Elixir 20 MEQ/15 ML UDC PO ONE (15:43)
[2018-03-27 15:45] LABS: Troponin I 0.52 ng/mL (< 0.04)
[2018-03-27 16:14] LABS: Magnesium 1.3 mg/dL (1.6-2.6); Phosphorous 3.2 mg/dL (2.7-4.5)
[2018-03-27] MEDS ORDERED: 0.9 % Sodium Chloride 1,000 ML IVC ONE (16:19)
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
[2018-03-27 17:40] LABS: Basophils # 0.1 K/mcL (0.0-0.2); Basophils % 0.5 %; Eosinophils # 0.1 K/mcL (0.0-0.6); Eosinophils % 0.4 %; Hematocrit 37.9 % (37.5-50.1); Hemoglobin 12.2 g/dL (12.9-16.9); Immature Granulocytes % 0.4 % (0-4); Lymphocytes % 16.5 %; Mean Corpuscular HGB Conc 32.2 g/dL (31.6-35.5); Mean Corpuscular Hemoglobin 30.8 pg (28.0-33.3); Mean Corpuscular Volume 95.7 fL (83.0-100.0); Mean Platelet Volume 9.4 fL (9.4-12.4); Monocytes # 1.2 K/mcL (0.0-1.3); Monocytes % 9.8 %; Neutrophils # 8.6 K/mcL (1.6-8.9); Platelet Count 212 K/mcL (140-400); Red Blood Count 3.96 M/mcL (4.19-5.50); Red Cell Distribution Width 13.3 % (11.5-14.5); Segmented Neutrophils % 72.4 %
--- NOTE | 2018-03-27 18:09 | Emergency Department Note ---
Disposition Clinical Impression: Atrial fibrillation with RVR, Defibrillator discharge Disposition: Admitted As Inpatient Condition: Fair Referrals: Angel Del Rosario MD [Primary Care Provider] - Forms: ED Satisfaction Letter Time of Disposition: 18:17 General Adult HPI - General Chief complaint: ED Chest Pain Stated complaint: pacemaker firing Time Seen by Provider: 03/27/18 15:05 Source: patient, EMS Mode of arrival: EMS Limitations: no limitations Nursing Notes Reviewed: Yes Vital Signs Reviewed: Yes - History of Present Illness HPI Narrative: Patient is a 72-year-old male with a past medical history of atrial fibrillation , diabetes, hypertension, pacemaker/AICD presents for evaluation after being picked up by squad for his defibrillator going off numerous times. Patient states that he was driving on the highway and he began feeling shocks in his chest. States he pulled over by down a vehicle and he feels that he was shocked numerous times. Since being on the squad he has not been shocked again. The patient states before this happened he had no symptoms of chest pain , shortness of breath or weakness. Pain Scale: 0 - Related Data Home Medications Medication Instructions Recorded Confirmed Atorvastatin [Lipitor] 40 mg PO HS 05/04/17 03/27/18 Metformin HCl [Metformin HCl ER] 1,000 mg PO QPM 05/04/17 03/27/18 Aspirin [Lo-Dose Aspirin EC] 81 mg PO QPM 07/06/17 03/27/18 Cholecalciferol (D-3) [Vitamin D] 1,000 unit PO QPM 07/06/17 03/27/18 Docusate Sodium [Stool Softener] 100 mg PO QPM 07/06/17 03/27/18 Warfarin [Coumadin] 2.5 mg PO 1800 12/17/17 03/27/18 Lisinopril [Zestril] 5 mg PO QPM 03/27/18 03/27/18 Metoprolol Succinate [Toprol Xl] 100 mg PO QPM 03/27/18 03/27/18 Warfarin Sodium [Warfarin Sodium] 1 mg PO 1800 03/27/18 03/27/18 Allergies Allergy/AdvReac Type Severity Reaction Status Date / Time No Known Allergies Allergy Verified 03/27/18 17:02 All systems ED: reviewed and negative except as stated. Review of Systems: As Per HPI Constitutional: Denies: fever, chills Eyes: Denies: vision change Cardiovascular: Denies: chest pain, palpitations, dyspnea on exertion, orthopnea , edema, syncope Respiratory: Denies: cough, dyspnea, wheezes Gastrointestinal: Denies: abdominal pain, nausea, vomiting Genitourinary: Denies: urgency, dysuria Musculoskeletal: Denies: back pain, neck pain Integumentary: Denies: rash Past Medical History - Past Medical History Attestation: Yes The following information was validated with the patient. Medical history: Reports: atrial fibrillation, cardiomyopathy, diabetes, hypertension Surgical history: Reports: non-contributory, orthopedic, other, thyroidectomy Psychiatric history: Reports: no psych history - Social History Smoking Status: Never smoker Smokeless Tobacco Status: No Alcohol use: Reports: none Drug use: Reports: none Physical Exam Patient's vital signs has severe tachycardia at 180, blood pressure is elevated as well as 170/110. CONSTITUTIONAL: Well-appearing; well-nourished; A&O X 3, in no apparent distress. Patient is sitting up in bed smiling. HEAD: Normocephalic; atraumatic EYES: PERRL, no scleral icterus NOSE: The nose is normal in appearance without rhinorrhea NECK: No JVD or distended neck veins RESP: Normal chest excursion with respiration; breath sounds clear and equal bilaterally; no wheezes, rhonchi, or rales CARD: Regular rhythm, without murmurs, rub or gallop ABD: Non-distended; non-tender, soft, without rigidity, rebound or guarding,no pulsatile mass CHEST: No pain with palpation SKIN: Normal for age and race; warm and dry without diaphoresis ; no apparent lesions EXTREMITIES: Pulses are 2 plus and equal times 4 extremities, no peripheral edema or calf muscle pain - General Limitations: no limitations General appearance: alert, in no apparent distress Course Course Narrative: Upon arrival to the emergency department the patient was seen immediately by the physician's assistance a crash cart was at patient bedside. Overall patient appears stable except for his tachycardia. We consulted with Dr. Conti who reviewed the patient's EKGs and agrees with this is most likely atrial fibrillation recommended starting Lopressor. The patient was given 2 doses of 5 mg Lopressor with only mild improvement in his tachycardia, however patient was becoming hypotensive. The patient was started on a Cardizem drip and his heart rate is currently improved to 70 bpm. The patient's pacemaker was interrogated and did show an atrial dysrhythmia. They state that the pacemaker has been showing this arrhythmia since his last pacemaker check in January 2018. States that since that time the patient has been shocked 36 times with 6 of those times being today. They state the reason the patient is being shocked is because he has not going out of his atrial dysrhythmia is causing his heart rate to go above 188 which is the shocking threshold. She does not appear to be any pacemaker malfunctioning at this time. Patient will be admitted to the hospital for further treatment and evaluation. - Reevaluation(s) Reevaluation #1: I discussed the patient's case with Dr. Conti the jig and fixture repairer on-call and discussed the pacemaker interrogation results. He states that this is most likely a rate control problem and that we have no EP acquisition professional until however it is appropriate to place the patient into the hospital for further evaluation and treatment. Discussed this with Dr. Mondragon and he agrees to accept the patient. Vital Signs Temperature 98.3 F 03/27/18 15:02 Pulse Rate 170 03/27/18 15:02 Respiratory Rate 18 03/27/18 15:02 Blood Pressure 131/97 03/27/18 15:02 O2 Sat by Pulse Oximetry 93 03/27/18 15:02 Temperature 98.3 F 03/27/18 15:02 Pulse Rate 68 03/27/18 18:29 Respiratory Rate 16 03/27/18 18:29 Blood Pressure 148/94 03/27/18 18:29 O2 Sat by Pulse Oximetry 98 03/27/18 18:29 Oxygen Delivery Oxygen Delivery Nasal Cannula Medical Decision Making - Medical Records Medical records reviewed: Yes I reviewed the patient's medical records. - Lab Data Lab results reviewed: Yes I reviewed the patient's lab results. Result diagrams: 03/27/18 17:30 03/27/18 15:07 Lab Results 03/27/18 03/27/18 03/27/18 Range/Units 15:07 15:07 15:07 WBC (4.3-11.1) K/mcL RBC (4.19-5.50) M/mcL Hgb (12.9-16.9) g/dL Hct (37.5-50.1) % MCV (83.0-100.0) fL MCH (28.0-33.3) pg MCHC (31.6-35.5) g/dL RDW (11.5-14.5) % Plt Count (140-400) K/mcL MPV (9.4-12.4) fL Immature Gran % (0-4) % Seg Neutrophils % % Lymphocytes % % Monocytes % % Eosinophils % % Basophils % % Neutrophils # (1.6-8.9) K/mcL Lymphocytes # (0.6-4.6) K/mcL Monocytes # (0.0-1.3) K/mcL Eosinophils # (0.0-0.6) K/mcL Basophils # (0.0-0.2) K/mcL PT 20.7 H (9.4-12.1) Seconds INR 1.9 APTT 33.0 (26.0-36.0) Seconds Sodium 136 (136-145) mEq/L Potassium 3.2 L (3.5-5.1) mEq/L Chloride 104 (98-107) mEq/L Carbon Dioxide 19 L (23-29) mEq/L BUN 24 H (8-23) mg/dL Creatinine 1.21 (0.70-1.30) mg/dL Est GFR ( Amer) > 60 (> 60) Est GFR (Non-Af Amer) 59 L (> 60) BUN/Creatinine Ratio 20 (6-26) Glucose 202 H (70-105) mg/dL Calculated Osmolality 292 (280-300) Calcium 9.6 (8.6-10.3) mg/dL Phosphorus 3.2 (2.7-4.5) mg/dL Magnesium 1.3 L (1.6-2.6) mg/dL Troponin I 0.52 H* (< 0.04) ng/mL B-Natriuretic Peptide 128 H (Less than 100) pg/mL 03/27/18 Range/Units 17:30 WBC 11.8 H (4.3-11.1) K/mcL RBC 3.96 L (4.19-5.50) M/mcL Hgb 12.2 L (12.9-16.9) g/dL Hct 37.9 (37.5-50.1) % MCV 95.7 (83.0-100.0) fL MCH 30.8 (28.0-33.3) pg MCHC 32.2 (31.6-35.5) g/dL RDW 13.3 (11.5-14.5) % Plt Count 212 (140-400) K/mcL MPV 9.4 (9.4-12.4) fL Immature Gran % 0.4 (0-4) % Seg Neutrophils % 72.4 % Lymphocytes % 16.5 % Monocytes % 9.8 % Eosinophils % 0.4 % Basophils % 0.5 % Neutrophils # 8.6 (1.6-8.9) K/mcL Lymphocytes # 2.0 (0.6-4.6) K/mcL Monocytes # 1.2 (0.0-1.3) K/mcL Eosinophils # 0.1 (0.0-0.6) K/mcL Basophils # 0.1 (0.0-0.2) K/mcL PT (9.4-12.1) Seconds INR APTT (26.0-36.0) Seconds Sodium (136-145) mEq/L Potassium (3.5-5.1) mEq/L Chloride (98-107) mEq/L Carbon Dioxide (23-29) mEq/L BUN (8-23) mg/dL Creatinine (0.70-1.30) mg/dL Est GFR ( Amer) (> 60) Est GFR (Non-Af Amer) (> 60) BUN/Creatinine Ratio (6-26) Glucose (70-105) mg/dL Calculated Osmolality (280-300) Calcium (8.6-10.3) mg/dL Phosphorus (2.7-4.5) mg/dL Magnesium (1.6-2.6) mg/dL Troponin I (< 0.04) ng/mL B-Natriuretic Peptide (Less than 100) pg/mL - Radiology Data Radiology results reviewed: Yes I reviewed the patient's radiology results. Chest X-Ray 03/27/18 15:05 IMPRESSION: No acute cardiopulmonary disease. The heart is decreased in size from December 2017. D/ / Rogerio Swanson MD / Rogerio Swanson MD Interpreting Provider: Rogerio Swanson MD - EKG Data EKG #1 EKG attestation: Yes I reviewed and interpreted this EKG. EKG results narrative: EKG done at 1500 shows atrial fibrillation with RVR at a rate of 170 bpm with wide QRS and PVC's. When compared to old EKG it does appear that there is a wide QRS complex as seen on this EKG as well as A. fib that is similar in appearance and this was done on 05/04/2017. EKG #2 EKG attestation: Yes I reviewed and interpreted this EKG. EKG results narrative: EKG done at 18:33 shows a paced rhythm at 69.
[2018-03-27] MEDS ORDERED: D5% in Water 1,000 ML IVC PRN (19:23)
[2018-03-27] MEDS ORDERED: *HR* Dextrose 50 % in Water (Syg) 50 ML SYRINGE IVP PRN (19:23)
[2018-03-27] MEDS ORDERED: Dextrose Gel 15 GM/37.5 ML TUBE PO PRN ×2 (19:23)
[2018-03-27] MEDS ORDERED: Naloxone 0.4 MG/ML INJ IVP PRN (19:26)
--- NOTE | 2018-03-27 19:31 | Internal Med History&Physical ---
Date of Encounter: 03/27/18 Time of Encounter: 19:29 Internal Medicine - H&P: HPI Chief complaint: Tachycardia Admitted From: Emergency Dept Plans for Post Hospital Care: Home History of present illness: Mr. Li is a 72 year old male with history of hypertension diabetes A. fib on Coumadin and pacemaker, CHRISTINE, Nonischemic cardiomyopathy s/p AICD who presented to the ED as he was picked up by EMS after he felt his defibrillator work going up multiple times. The patient was driving on the highway when he began feeling his shocks. He denies any other symptoms associated with this. He denies chest pain, palpitations, shortness of breath, dizziness. Upon arrival to the ED was noted to be in an irregular rhythm suspected to be A. fib with wide complex QRS. Dr. Conti was contacted and reviewed patient's EKGs and thought that the patient was likely in atrial fibrillation with RVR and recommended given IV Lopressor which the patient received a couple doses of 5 mg however he became hypotensive but his tachycardia had improved. Eventually the patient was started on a Cardizem drip. The pacemaker was interrogated in the ED and showed the patient had been shocked 36 times today. Their was 7 episodes in VF zone according to the report but it is believed that this is a misread as the interpretation is likely to be off when the rate is that fast. The fact that the patient converted with lopressor and cardizem made afib more likely. There was also a shock on February 27 that was read as VF. It was reported that the patient has been shocked 36 times since January 2018 since his last check. 6 of those shocks heparin today. His laboratory workup in the ED showed hypokalemia and hypomagnesemia with mildly abnormal kidney function. The patient had received IV fluids and adult dose aspirin in the ED. Past Med Surg Social Fam HX - Past Medical History Medical history: atrial fibrillation, cardiomyopathy, diabetes, hypertension Additional medical history: sleep apnea, colon polyps Psychiatric history: no psych history - Past Surgical History Surgical History: non-contributory, orthopedic, other, thyroidectomy Additional surgical history: RIGHT ANKLE SURGERY, AMPUTATION FINGER, THROAT SURGERY, RIGHT TOTAL SHOULD REPLACEMENT - Social History Smoking Status: Never smoker Smokeless Tobacco Status: No Alcohol use: none Drug use: none - Family History Mother Living Status: Hx Family Cardiac Disorders: Yes Brother Living Status: Hx Family Cardiac Disorders: Yes (heart transplant) Father Living Status: Internal Medicine - H&P: Meds Atorvastatin [Lipitor] 40 mg PO HS 05/04/17 [History] Metformin HCl [Metformin HCl ER] 1,000 mg PO QPM 05/04/17 [History] Aspirin [Lo-Dose Aspirin EC] 81 mg PO QPM 07/06/17 [History] Cholecalciferol (D-3) [Vitamin D] 1,000 unit PO QPM 07/06/17 [History] Docusate Sodium [Stool Softener] 100 mg PO QPM 07/06/17 [History] Warfarin [Coumadin] 2.5 mg PO 1800 12/17/17 [History] Lisinopril [Zestril] 5 mg PO QPM 03/27/18 [History] Metoprolol Succinate [Toprol Xl] 100 mg PO QPM 03/27/18 [History] Warfarin Sodium [Warfarin Sodium] 1 mg PO 1800 03/27/18 [History] 3 Allergy/AdvReac Type Severity Reaction Status Date / Time No Known Allergies Allergy Verified 03/27/18 17:02 All Systems PM: A 10-system review of systems was performed and is negative for pertinent findings except as documented above in the HPI. Review of systems: All systems reviewed are negative except for as mentioned above - Constitutional Vitals: Temp Pulse Resp BP Pulse Ox 98.3 F 68 16 148/94 98 03/27/18 15:02 03/27/18 18:29 03/27/18 18:29 03/27/18 18:29 03/27/18 18:29 Exam: GEN: NAD HEENT: AT, NC, No cyanosis, oral mucosa is moist, No JVD Lymphatics: No lymphadenoapthy Eyes: Extrocular muscles intact, anicteric CVS:RRR. S1, S2, No m/r/g RESP: CTAB ABD: Soft, NT, ND, +BS EXT: No edema, No rashes, 2+ DP NEURO: Nonfocal, CN II-XII intact, No focal motor or sensory deficits Psych: Cooperative, Not anxious or depressed Internal Med - H&P Results - Labs CBC & Chem 7: 03/27/18 17:30 03/27/18 15:07 Labs: Short CBC 03/27/18 Range/Units 17:30 WBC 11.8 H (4.3-11.1) K/mcL Hgb 12.2 L (12.9-16.9) g/dL Hct 37.9 (37.5-50.1) % Plt Count 212 (140-400) K/mcL Neutrophils # 8.6 (1.6-8.9) K/mcL BMP 03/27/18 15:07 Sodium 136 Potassium 3.2 L Chloride 104 Carbon Dioxide 19 L BUN 24 H Creatinine 1.21 Glucose 202 H Calcium 9.6 Cardiac Enzymes 03/27/18 Range/Units 15:07 Troponin I 0.52 H* (< 0.04) ng/mL - Impressions ITS Impressions Chest X-Ray 03/27/18 15:05 IMPRESSION: No acute cardiopulmonary disease. The heart is decreased in size from December 2017. D/ / Rogerio Swanson MD / Rogerio Swanson MD Interpreting Provider: Rogerio Swanson MD - Assessment and plan (1) Atrial fibrillation with RVR Current Visit: Yes Status: Acute Assessment and plan: Admit to telemetry. The patient seems to be back in sinus. We will just resume his cardiac meds and that includes his beta alexi. Cardiology to see him. An echo has been ordered. Replete his electrolytes. Pacemaker/AICD interrogation done in the ED. Check TSH. (2) Elevated troponin Current Visit: No Status: Acute Assessment and plan: Likely demand ischemia. We will trend cardiac enzymes. An echo has been ordered. Cardiology to see and comment on this. The patient is anticoagulated with Coumadin. (3) Non-ischemic cardiomyopathy Current Visit: No Status: Chronic Assessment and plan: Resume cardiac meds. The patient has limited echo back in June 2017 that showed an EF of 20-25%. The patient had an AICD placed back in December. We will repeat an echo. (4) Defibrillator discharge Current Visit: Yes Status: Acute Assessment and plan: Consult cardiology. Pacemaker interrogation done in the ED reportedly showing a total of 36 discharges/shocks since January 2018 with the rhythm being atrial dysrhythmias. (5) ANNY (acute kidney injury) Current Visit: Yes Status: Acute Assessment and plan: Possibly from hypotension induced by his arrhythmia. The patient has been given IV fluids in the ED. We will hold off on further IV fluids given his low ejection fraction. Avoid nephrotoxins for now. Check labs in the morning. (6) Hypokalemia Current Visit: Yes Status: Acute Assessment and plan: Was given oral potassium in the ED. Check labs in the morning. (7) Hypomagnesemia Current Visit: Yes Status: Acute Assessment and plan: The patient was given magnesium IV in the ED. We will check labs in the morning. (8) Essential hypertension Current Visit: No Status: Chronic Assessment and plan: Resume antihypertensives. Hold lisinopril given his mildly abnormal kidney function (9) Diabetes mellitus Current Visit: No Status: Chronic Assessment and plan: We will put the patient on insulin sliding scale. Accu-Cheks. Qualifiers: Diabetes mellitus type: type 2 Diabetes mellitus terminal system operator insulin use: without terminal system operator use Diabetes mellitus complication status: with unspecified complications Qualified Code(s): E11.8 - Type 2 diabetes mellitus with unspecified complications (10) DVT prophylaxis Current Visit: No Status: Acute Assessment and plan: On Coumadin - Time Spent With Patient Total time spent is greater than 50% in coordination of care (as documented) at patient's floor/unit and/or counseling patient:
[2018-03-27] MEDS ORDERED: Magnesium Oxide 400 MG TABLET PO ONE (20:04)
[2018-03-27] MEDS: Insulin LISPRO 300 UNITS/3 ML VIAL SQ SCH (20:38)
[2018-03-27] MEDS ORDERED: *HR* Warfarin 1 MG TABLET PO SCH (20:45)
[2018-03-27] MEDS ORDERED: *HR* Warfarin 2.5 MG TABLET PO SCH (20:45)
[2018-03-28 02:51] LABS: Basophils # 0.1 K/mcL (0.0-0.2); Basophils % 0.9 %; Eosinophils # 0.2 K/mcL (0.0-0.6); Eosinophils % 2.1 %; Hematocrit 35.2 % (37.5-50.1); Hemoglobin 11.7 g/dL (12.9-16.9); Immature Granulocytes % 0.1 % (0-4); Lymphocytes # 2.7 K/mcL (0.6-4.6); Lymphocytes % 32.4 %; Mean Corpuscular HGB Conc 33.2 g/dL (31.6-35.5); Mean Corpuscular Hemoglobin 31.1 pg (28.0-33.3); Mean Corpuscular Volume 93.6 fL (83.0-100.0); Mean Platelet Volume 9.4 fL (9.4-12.4); Monocytes # 0.9 K/mcL (0.0-1.3); Monocytes % 11.1 %; Neutrophils # 4.4 K/mcL (1.6-8.9); Platelet Count 210 K/mcL (140-400); Red Blood Count 3.76 M/mcL (4.19-5.50); Red Cell Distribution Width 13.4 % (11.5-14.5); Segmented Neutrophils % 53.4 %
[2018-03-28 03:03] LABS: INR 1.7; Prothrombin Time 18.8 Seconds (9.4-12.1)
[2018-03-28 03:34] LABS: BUN/Creatinine Ratio 18 (6-26); Blood Urea Nitrogen 16 mg/dL (8-23); Calcium 8.5 mg/dL (8.6-10.3); Carbon Dioxide 21 mEq/L (23-29); Chloride 110 mEq/L (98-107); Glucose 112 mg/dL (70-105); Magnesium 1.7 mg/dL (1.6-2.6); Osmolality,Calculated 286 (280-300); Potassium 4.2 mEq/L (3.5-5.1); Sodium 137 mEq/L (136-145); Thyroid Stimulating Hormone 0.977 mcIU/mL (0.340-5.600); eGFR For African Americans > 60 (> 60); eGFR For Non-African Americans > 60 (> 60)
[2018-03-28] MEDS: Acetaminophen 325 MG TABLET PO PRN ×2 (05:12→20:32)
--- NOTE | 2018-03-28 07:58 | Cardiology Consult Note ---
Date of Encounter: 03/28/18 Time of Encounter: 08:00 Assessment and Plan (1) Defibrillator discharge Current Visit: Yes Status: Acute Per Cardiology: [employer] device interrogation reviewed from yesterday and patient did receive one shock 02/27/2018 and 36 shocks 03/27/2018. (2) Atrial fibrillation with RVR Current Visit: Yes Status: Acute Per Cardiology: Presented with A. fib with RVR with left bundle branch block. Has past history of A. fib and left bundle branch block. Per review of records amiodarone 200 mg by mouth daily recently discontinued January 2018 due to abnormal PFTs. Currently sinus rhythm in the 60s to 70s. Average heart rate the past 12 hours 66 on telemetry. Home medicines Toprol-XL 50 mg by mouth daily, currently on Toprol XL 100 mg by mouth daily. Will titrate as needed. Will discuss with pacer tech tomorrow potential ICD adjustments as ICD shocks appear to be d/t afib RVR with LBBB. We will also have evaluation for potential diaphragmatic pacing concerns. Anticoagulated with Coumadin. Target INR 2.0-3.0. (3) Hypomagnesemia Current Visit: Yes Status: Acute Per Cardiology: Magnesium noted to be 1.3 now 1.7. Recommend keep magnesium above 2.0. (4) Non-ischemic cardiomyopathy Current Visit: No Status: Chronic Per Cardiology: [facility] 04/2017: Impressions: Coronary arteries have minimal coronary artery disease The left ventricle is enlarged dilated and has severely abnormal contractility EF 15% ECHO 04/2017: Impressions: Severely dilated left ventricle. Severe LV systolic dysfunction, LVEF 25%. There is global LV hypokinesis. Mild concentric left ventricular hypertrophy. Mild left ventricular diastolic dysfunction. Normal right ventricular size and function. Severely dilated left atrium. No significant valvular dysfunction. Mild pulmonary hypertension. Estimated RVSP = 36 mmHg. Left Ventricular Wall Motion: Rest Echo Findings The apex, apical inferior, mid inferior, basal inferior, apical anterior, mid anterior, basal anterior, apical septal, mid inferior septal, basal inferior septal, apical lateral, mid anterior lateral, basal anterior lateral, mid anterior septal, mid inferior lateral, basal anterior septal and basal inferior lateral squires were hypokinetic. Patient has echo pending. Will cancel as see will add no diagnostic value at this time. Euvolemic on exam. Discussion w patient/family: The assessment and plan as outlined above was discussed with the patient who expressed understanding and agreement. All questions were answered. Thank you for involving us in the care of your patient. Please call with any questions. History of Present Illness Consult date: 03/28/18 Requesting physician: Alexis Couch Consult reason: ICV Shocks, Afib RVR Chief complaint: ICD Shocking History of present illness: Mr. Li is a 72 year old male with a relevant past medical history of nonischemic cardiomyopathy with ICD, DM 2, HTN, HLD, atrial fibrillation, CHRISTINE on CPAP, history of left bundle branch block. Last seen by Dr. Angel with cardiology February 2018. Cardiology consult for concerns of ICD shocking. Patient reports concern of ICD shock about 2 weeks ago. Apparently he communicated with his PCP but did not notify cardiology. He reports yesterday while driving ICD should start shocking multiple times. Prior to this event he denies any symptoms. He has been his normal state of health. He denied any chest pain, short of breath, palpitations, dizziness. Denies any active bleeding or blood loss. Does report some left sided discomfort with position changes since ICD placed. Additionally, reports when laying flat at night and vibration sensation in his lower abdomen. Past Med Surg Social Fam HX - Past Medical History Attestation: Yes The following information was validated with the patient. Source: patient, old records reviewed Medical history: atrial fibrillation, cardiomyopathy, diabetes, hypertension Additional medical history: sleep apnea, colon polyps Psychiatric history: no psych history - Past Surgical History Surgical History: non-contributory, orthopedic, other, thyroidectomy Additional surgical history: RIGHT ANKLE SURGERY, AMPUTATION FINGER, THROAT SURGERY, RIGHT TOTAL SHOULD REPLACEMENT - Social History Smoking Status: Never smoker Smokeless Tobacco Status: No Alcohol use: none Drug use: none - Family History Mother Living Status: Hx Family Cardiac Disorders: Yes (Blood clots/Stroke) Brother Living Status: Hx Family Cardiac Disorders: Yes (heart transplant) Hx Family Cancer: Yes (Brain cancer) Father Living Status: Hx Family Cancer: Yes (Bone cancer) Medications and Allergies Atorvastatin [Lipitor] 40 mg PO HS 05/04/17 [History] Metformin HCl [Metformin HCl ER] 1,000 mg PO QPM 05/04/17 [History] Aspirin [Lo-Dose Aspirin EC] 81 mg PO QPM 07/06/17 [History] Cholecalciferol (D-3) [Vitamin D] 1,000 unit PO QPM 07/06/17 [History] Docusate Sodium [Stool Softener] 100 mg PO QPM 07/06/17 [History] Warfarin [Coumadin] 2.5 mg PO 1800 12/17/17 [History] Lisinopril [Zestril] 5 mg PO QPM 03/27/18 [History] Metoprolol Succinate [Toprol Xl] 100 mg PO QPM 03/27/18 [History] Warfarin Sodium [Warfarin Sodium] 1 mg PO 1800 03/27/18 [History] 3 Allergy/AdvReac Type Severity Reaction Status Date / Time No Known Allergies Allergy Verified 03/27/18 17:02 All Systems Review: The remainder of the systems were reviewed and are negative - Cardiovascular Cardiovascular: as per HPI, other (ICD shocks) Physical Examination Vital Signs, Last 4 Hours Temp Pulse Resp BP Pulse Ox 03/28/18 07:41 97.4 F L 64 160/86 94 03/28/18 04:00 97.6 F 69 16 151/81 95 General: Conversant, No Apparent Distress HEENT: Atraumatic, Normocephaly, Mucus Membranes Moist Neck: No JVD, Normal carotid pulses Cardiac: Reg Rate and Rhythm, Normal S1 and S2, No Murmur Lungs: Normal Breath Sounds, No Wheeze, Rales, Rhonchi Neuro: Alert and responsive, No focal deficits noted Abdomen: Soft, Non-Tender Skin: No rashes noted on visualized skin Musculoskeletal: No Chest Wall Tenderness Extremities: No Clubbing, No Cyanosis, No Edema, Normal Pulses Results 03/28/18 02:38 03/28/18 02:38 Lab Results Laboratory Tests 03/27/18 03/27/18 03/27/18 15:07 15:07 21:09 INR Creatinine Est GFR (Non-Af Amer) Magnesium 1.3 L Troponin I 0.52 H* 3.45 H* B-Natriuretic Peptide 128 H TSH 03/28/18 03/28/18 03/28/18 02:38 02:38 02:38 INR 1.7 Creatinine 0.87 Est GFR (Non-Af Amer) > 60 Magnesium 1.7 Troponin I 3.57 H* B-Natriuretic Peptide TSH 0.977 ITS Impressions Chest X-Ray 03/27/18 15:05 IMPRESSION: No acute cardiopulmonary disease. The heart is decreased in size from December 2017. D/ / Rogerio Swanson MD / Rogerio Swanson MD Interpreting Provider: Rogerio Swanson MD Intake & Output 03/25/18 03/26/18 03/27/18 03/28/18 23:59 23:59 23:59 23:59 Intake Total 2110 / 2110 Output Total 800 / 800 275 / 275 Balance 1310 / 1310 -275 / -275 Weight 101.9 kg 101.9 kg Active Medications Acetaminophen (Tylenol) 650 mg PO Q6HR PRN PRN Reason: Mild Pain/Fever Stop: 09/26/18 19:27 Last Admin: 03/28/18 05:12 Dose: 650 mg Aspirin (Aspirin Ec) 81 mg PO QPM KIM Stop: 09/27/18 18:01 Atorvastatin Calcium (Lipitor) 40 mg PO HS KIM Stop: 09/26/18 21:01 Last Admin: 03/27/18 20:37 Dose: 40 mg Dextrose/Water (Dextrose 50% (Syg)) 25 ml IVP AD PRN PRN Reason: Hypoglycemia Stop: 09/26/18 19:24 Docusate Sodium (Colace) 100 mg PO QPM KIM PRN Reason: Protocol Stop: 09/27/18 18:01 Glucagon (Glucagen) 1 mg IM ONCE PRN PRN Reason: Hypoglycemia Stop: 09/26/18 19:24 Glucose (Gluctose) 15 gm PO ONCE PRN PRN Reason: Hypoglycemia Stop: 09/26/18 19:24 Glucose (Gluctose) 30 gm PO ONCE PRN PRN Reason: Hypoglycemia Stop: 09/26/18 19:24 Hydralazine HCl (Hydralazine) 10 mg IVP Q6H PRN PRN Reason: Hypertension Stop: 09/26/18 23:06 Dextrose (Dextrose 5%) 1,000 mls @ 100 mls/hr IVC .Q10H PRN PRN Reason: HYPOGLYCEMIA Stop: 09/26/18 19:24 Insulin Human Lispro (Humalog) 0 units SQ HS KIM PRN Reason: Protocol Stop: 09/26/18 21:01 Last Admin: 03/27/18 20:38 Dose: Not Given Insulin Human Lispro (Humalog) 0 units SQ TIDAC KIM PRN Reason: Protocol Stop: 09/27/18 07:31 Metoprolol Succinate (Toprol Xl) 100 mg PO QPM [facility] Stop: 09/27/18 18:01 Naloxone HCl (Narcan) 0.4 mg IVP Q2MIN PRN PRN Reason: SEE COMMENTS Stop: 09/26/18 19:27 Vitamin D (Vitamin D) 1,000 unit PO QPM [facility] Stop: 09/27/18 18:01 Warfarin Sodium (Coumadin Perpt) 0 each PO DAILY@1800 PRN PRN Reason: SEE COMMENTS Stop: 09/27/18 18:01 Warfarin Sodium (Coumadin) 1 mg PO DAILY@1800 [facility] Stop: 09/26/18 20:46 Last Admin: 03/27/18 21:06 Dose: 1 mg Warfarin Sodium (Coumadin) 2.5 mg PO DAILY@1800 [facility] Stop: 09/26/18 20:46 Last Admin: 03/27/18 21:06 Dose: 2.5 mg - EKG Interpretation EKG results cardiology: personally reviewed (A. fib with RVR and left bundle branch block), other (Currently sinus rhythm on telemetry with heart rates in the 60s and average heart rate 66 the past 12 hours.) Consult Discharge Plan - Plan Referrals: Angel Del Rosario MD [Primary Care Provider] -
[2018-03-28] MEDS: Insulin LISPRO 300 UNITS/3 ML VIAL SQ SCH ×4 (08:36→20:36)
[2018-03-28] MEDS: Magnesium Oxide 400 MG TABLET PO SCH ×2 (12:09→20:36)
[2018-03-28] MEDS: Metoprolol XL (24 HR) Succ 50 MG TAB.ER.24H PO SCH (16:41)
[2018-03-28] MEDS: Aspirin Enteric Coated 81 MG Tablet PO SCH (16:41)
[2018-03-28] MEDS: Cholecalciferol (D-3) 1,000 UNIT TABLET PO SCH (16:41)
--- NOTE | 2018-03-28 17:39 | Internal Med Progress Note ---
Date of Encounter: 03/28/18 Time of Encounter: 17:37 - Assessment and plan (1) PAF (paroxysmal atrial fibrillation) Current Visit: Yes Status: Acute Assessment and plan: This patient has underlying severe systolic heart failure. His ejection fraction from June 2017 was 20 to 25%. He does Pacemaker/AICD. Is discharged with 36 times in the last several months. He has underlying atrial fibrillation. He was found to have rapid ventricular rate at admission. He is currently normal sinus rhythm. He was started on metoprolol tartrate. Cardiologies consulted. Will correct his low potassium and low magnesium. The patient will continue PO warfarin. (2) Defibrillator discharge Current Visit: Yes Status: Acute Assessment and plan: See above. (3) Acute hypokalemia Current Visit: Yes Status: Acute Assessment and plan: Will give him supplemental potassium chloride. Will check his electrolytes tomorrow morning. (4) Hypomagnesemia Current Visit: Yes Status: Acute Assessment and plan: His magnesium is 1.7. Will keep him extra dose of magnesium sulfate. (5) Chronic systolic heart failure Current Visit: Yes Status: Acute Assessment and plan: He takes Toprol XL and lisinopril at home. There is no need for diuretic at this time. He has a pacemaker/AICD inserted. - Time Spent With Patient Total time spent is greater than 50% in coordination of care (as documented) at patient's floor/unit and/or counseling patient: 25 - 35 minutes - Subjective Interval history: The patient feels good. He hasn't had any defibrillator discharges last night/ today. Denies chest pain. Denies difficulty breathing. He has no coughing or wheezing. His telemetry shows normal sinus rhythm today afternoon. - Constitutional Vitals: Temp Pulse Resp BP Pulse Ox 97.8 F 81 16 148/82 94 03/28/18 11:33 03/28/18 16:18 03/28/18 04:00 03/28/18 16:18 03/28/18 16:18 General appearance: Present: A&O X 3, no acute distress, answers questions appropriately - Respiratory Respiratory exam: Present: CTAB. Absent: accessory muscle use, rales, rhonchi, wheezes - Cardiovascular Cardiovascular exam: Present: RRR, +S1, +S2. Absent: diastolic murmur, gallop, rubs, systolic murmur - GI/Abdominal GI/Abdominal exam: Present: normal bowel sounds, soft, no peritoneal signs. Absent: distended, tenderness - Skin Skin exam: Present: dry, intact Internal Medicine: Result - Labs CBC & Chem 7: 03/28/18 02:38 03/28/18 02:38 Labs: Short CBC 03/28/18 Range/Units 02:38 WBC 8.2 (4.3-11.1) K/mcL Hgb 11.7 L (12.9-16.9) g/dL Hct 35.2 L (37.5-50.1) % Plt Count 210 (140-400) K/mcL Neutrophils # 4.4 (1.6-8.9) K/mcL BMP 03/28/18 02:38 Sodium 137 Potassium 4.2 D Chloride 110 H Carbon Dioxide 21 L BUN 16 Creatinine 0.87 Glucose 112 H Calcium 8.5 L Cardiac Enzymes 03/27/18 03/28/18 03/28/18 Range/Units 21:09 02:38 08:21 Troponin I 3.45 H* 3.57 H* 2.17 H* (< 0.04) ng/mL - ABG Interpretation ABG results: PT/INR, D-dimer PT 18.8 Seconds (9.4-12.1) H 03/28/18 02:38 Consult Discharge Plan - Plan Referrals: Angel Del Rosario MD [Primary Care Provider] -
[2018-03-28] MEDS ORDERED: Warfarin perPT PO PRN (18:00)
[2018-03-28] MEDS ORDERED: *HR* Warfarin 1 MG TABLET PO ONE (18:00)
[2018-03-29] MEDS: Acetaminophen 325 MG TABLET PO PRN (05:01)
[2018-03-29 05:46] LABS: INR 1.9; Prothrombin Time 20.4 Seconds (9.4-12.1)
--- NOTE | 2018-03-29 08:11 | Electrocardiograph Report ---
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
[2018-03-29] MEDS: Insulin LISPRO 300 UNITS/3 ML VIAL SQ SCH ×4 (08:41→22:52)
[2018-03-29] MEDS: Magnesium Oxide 400 MG TABLET PO SCH ×2 (08:41→22:46)
--- NOTE | 2018-03-29 09:19 | Cardiology Progress Note ---
Date of Encounter: 03/29/18 Time of Encounter: 08:40 Assessment and Plan (1) Defibrillator discharge Current Visit: Yes Status: Acute Per Cardiology: [employer] device interrogation reviewed from yesterday and patient did receive one shock 02/27/2018 and 36 shocks 03/27/2018. No further shocks. Remains sinus rhythm. (2) Atrial fibrillation with RVR Current Visit: Yes Status: Acute Per Cardiology: Presented with A. fib with RVR with left bundle branch block. Has past history of A. fib and left bundle branch block. Per review of records amiodarone 200 mg by mouth daily recently discontinued January 2018 due to abnormal PFTs. Currently sinus rhythm in the 60s to 70s. Average heart rate the past 12 hours 64 on telemetry. Home medicines Toprol-XL 50 mg by mouth daily, currently on Toprol XL 100 mg by mouth daily. Pacer Tech will eval for potential diaphragmatic pacing concerns. Will have EP review report later this week as outpatient. Anticoagulated with Coumadin. Target INR 2.0-3.0. (3) Hypomagnesemia Current Visit: Yes Status: Acute Per Cardiology: Magnesium noted to be 1.3 now 1.7. Recommend keep magnesium above 2.0. (4) Non-ischemic cardiomyopathy Current Visit: No Status: Chronic Per Cardiology: [facility] 04/2017: Impressions: Coronary arteries have minimal coronary artery disease The left ventricle is enlarged dilated and has severely abnormal contractility EF 15% ECHO 04/2017: Impressions: Severely dilated left ventricle. Severe LV systolic dysfunction, LVEF 25%. There is global LV hypokinesis. Mild concentric left ventricular hypertrophy. Mild left ventricular diastolic dysfunction. Normal right ventricular size and function. Severely dilated left atrium. No significant valvular dysfunction. Mild pulmonary hypertension. Estimated RVSP = 36 mmHg. Left Ventricular Wall Motion: Rest Echo Findings The apex, apical inferior, mid inferior, basal inferior, apical anterior, mid anterior, basal anterior, apical septal, mid inferior septal, basal inferior septal, apical lateral, mid anterior lateral, basal anterior lateral, mid anterior septal, mid inferior lateral, basal anterior septal and basal inferior lateral squires were hypokinetic. Discussion w patient/family: The assessment and plan as outlined above was discussed with the patient who expressed understanding and agreement. All questions were answered. Thank you for involving us in the care of your patient. Please call with any questions. Subjective Principal diagnosis: ICD Fire, Afib RVR Interval history: Patient denies any concerns over night. Denies any further ICD shocks. Denies any palpitations. Reports continues to experience abdominal twitching when laying flat. Objective Vital Signs, Last 4 Hours Temp Pulse Resp BP Pulse Ox 03/29/18 07:23 98.1 F 65 15 160/98 95 General: Conversant, No Apparent Distress HEENT: Atraumatic, Normocephaly, Mucus Membranes Moist Neck: No JVD, Normal carotid pulses Cardiac: Reg Rate and Rhythm, Normal S1 and S2, No Murmur Lungs: Normal Breath Sounds, No Wheeze, Rales, Rhonchi Neuro: Alert and responsive, No focal deficits noted Abdomen: Soft, Non-Tender Skin: No rashes noted on visualized skin Musculoskeletal: No Chest Wall Tenderness Extremities: No Clubbing, No Cyanosis, No Edema, Normal Pulses Results 03/28/18 02:38 03/28/18 02:38 Lab Results Laboratory Tests 03/27/18 03/27/18 03/28/18 15:07 21:09 02:38 INR Troponin I 0.52 H* 3.45 H* 3.57 H* 03/28/18 03/29/18 08:21 05:16 INR 1.9 Troponin I 2.17 H* Active Medications Acetaminophen (Tylenol) 650 mg PO Q6HR PRN PRN Reason: Mild Pain/Fever Stop: 09/26/18 19:27 Last Admin: 03/29/18 05:01 Dose: 650 mg Aspirin (Aspirin Ec) 81 mg PO QPM [facility] Stop: 09/27/18 18:01 Last Admin: 03/28/18 16:41 Dose: 81 mg Atorvastatin Calcium (Lipitor) 40 mg PO HS [facility] Stop: 09/26/18 21:01 Last Admin: 03/28/18 20:34 Dose: 40 mg Dextrose/Water (Dextrose 50% (Syg)) 25 ml IVP AD PRN PRN Reason: Hypoglycemia Stop: 09/26/18 19:24 Docusate Sodium (Colace) 100 mg PO QPM KIM PRN Reason: Protocol Stop: 09/27/18 18:01 Last Admin: 03/28/18 16:41 Dose: 100 mg Glucagon (Glucagen) 1 mg IM ONCE PRN PRN Reason: Hypoglycemia Stop: 09/26/18 19:24 Glucose (Gluctose) 15 gm PO ONCE PRN PRN Reason: Hypoglycemia Stop: 09/26/18 19:24 Glucose (Gluctose) 30 gm PO ONCE PRN PRN Reason: Hypoglycemia Stop: 09/26/18 19:24 Hydralazine HCl (Hydralazine) 10 mg IVP Q6H PRN PRN Reason: Hypertension Stop: 09/26/18 23:06 Dextrose (Dextrose 5%) 1,000 mls @ 100 mls/hr IVC .Q10H PRN PRN Reason: HYPOGLYCEMIA Stop: 09/26/18 19:24 Insulin Human Lispro (Humalog) 0 units SQ HS KIM PRN Reason: Protocol Stop: 09/26/18 21:01 Last Admin: 03/28/18 20:36 Dose: Not Given Insulin Human Lispro (Humalog) 0 units SQ TIDAC KIM PRN Reason: Protocol Stop: 09/27/18 07:31 Last Admin: 03/29/18 08:41 Dose: Not Given Magnesium Oxide (Mag-Ox) 400 mg PO BID KIM PRN Reason: Protocol Stop: 09/27/18 10:01 Last Admin: 03/29/18 08:41 Dose: 400 mg Metoprolol Succinate (Toprol Xl) 100 mg PO QPM KIM Stop: 09/27/18 18:01 Last Admin: 03/28/18 16:41 Dose: 100 mg Naloxone HCl (Narcan) 0.4 mg IVP Q2MIN PRN PRN Reason: SEE COMMENTS Stop: 09/26/18 19:27 Potassium Chloride (Potassium Chloride) 20 meq PO BIDWM KIM Stop: 09/28/18 08:01 Last Admin: 03/29/18 08:41 Dose: 20 meq Vitamin D (Vitamin D) 1,000 unit PO QPM KIM Stop: 09/27/18 18:01 Last Admin: 03/28/18 16:41 Dose: 1,000 unit Warfarin Sodium (Coumadin Perpt) 1 each PO DAILY@1800 PRN PRN Reason: Placeholder Stop: 09/27/18 18:01 - EKG Interpretation EKG results cardiology: other (Telemetry reviewed with average heart rate vessel are 64, currently V pacing in the 60s, no further A. fib noted) Consult Discharge Plan - Plan Referrals: Angel Del Rosario MD [Primary Care Provider] -
--- NOTE | 2018-03-29 15:27 | Electrocardiograph Report ---
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
[2018-03-29] MEDS: Aspirin Enteric Coated 81 MG Tablet PO SCH (16:57)
[2018-03-29] MEDS: Cholecalciferol (D-3) 1,000 UNIT TABLET PO SCH (16:58)
[2018-03-29] MEDS: Metoprolol XL (24 HR) Succ 50 MG TAB.ER.24H PO SCH (16:58)
[2018-03-29] MEDS ORDERED: *HR* Warfarin 3 MG TABLET PO ONE (18:00)
--- NOTE | 2018-03-29 21:15 | Internal Med Progress Note ---
Date of Encounter: 03/29/18 Time of Encounter: 21:15 - Assessment and plan (1) PAF (paroxysmal atrial fibrillation) Current Visit: Yes Status: Acute Assessment and plan: He is currently paced rhythm of 68 per minute. He gets Toprol XL at 100 mg PO daily. He's on warfarin. Cardiologies following him. (2) Defibrillator discharge Current Visit: Yes Status: Acute Assessment and plan: The adjustments have been made by cardiology. His atrial fibrillation is rate- controlled at this time. (3) Acute hypokalemia Current Visit: Yes Status: Acute Assessment and plan: We corrected it. Will continue supplemental potassium chloride. (4) Hypomagnesemia Current Visit: Yes Status: Acute Assessment and plan: We corrected it. He got two doses of magnesium sulfate.He said magnesium oxide. (5) Chronic systolic heart failure Current Visit: Yes Status: Acute Assessment and plan: Under control. Will continue Toprol XL. Will continue to prn diuretics. - Time Spent With Patient Total time spent is greater than 50% in coordination of care (as documented) at patient's floor/unit and/or counseling patient: - Subjective Interval history: He feels good. Denies chest pain. Denies pain in his abdomen. He can walk slowly without dyspnea. His web marketing assistant shows paced rhythm of 68. - Constitutional Vitals: Temp Pulse Resp BP Pulse Ox 97.4 F L 70 15 159/94 95 03/29/18 14:54 03/29/18 14:54 03/29/18 14:54 03/29/18 14:54 03/29/18 14:54 General appearance: Present: A&O X 3, no acute distress, answers questions appropriately - Respiratory Respiratory exam: Present: CTAB. Absent: accessory muscle use, rales, rhonchi, wheezes - Cardiovascular Cardiovascular exam: Present: RRR, +S1, +S2. Absent: diastolic murmur, gallop, rubs, systolic murmur - GI/Abdominal GI/Abdominal exam: Present: normal bowel sounds, soft, no peritoneal signs. Absent: distended, tenderness - Skin Skin exam: Present: dry, intact Internal Medicine: Result - Labs CBC & Chem 7: 03/28/18 02:38 03/28/18 02:38 - ABG Interpretation ABG results: PT/INR, D-dimer PT 20.4 Seconds (9.4-12.1) H 03/29/18 05:16 Consult Discharge Plan - Plan Referrals: Angel Del Rosario MD [Primary Care Provider] - 04/07/18 2:15 pm
[2018-03-30 05:52] LABS: INR 2.1; Prothrombin Time 22.5 Seconds (9.4-12.1)
[2018-03-30] MEDS: Magnesium Oxide 400 MG TABLET PO SCH ×2 (07:53→19:57)
[2018-03-30] MEDS: Insulin LISPRO 300 UNITS/3 ML VIAL SQ SCH ×4 (07:56→22:27)
--- NOTE | 2018-03-30 12:14 | Discharge Summary ---
- NOTES TO OUTPATIENT PROVIDER Notes to Outpatient Provider: No change in medications, admitted for defibrillator discharge, cardiology evaluated, no changes in medications, continue home meds and follow-up with cardiology and primary care physician. Orders not resulted at time of discharge: Pending orders 03/31/18 04:00 PT/INR [Prothrombin Time INR] [COAG] AM 0400 04/01/18 04:00 PT/INR [Prothrombin Time INR] [COAG] AM 0400 04/02/18 04:00 PT/INR [Prothrombin Time INR] [COAG] AM 0400 04/03/18 04:00 PT/INR [Prothrombin Time INR] [COAG] AM 0400 Date of Encounter: 03/31/18 Time of Encounter: 12:10 - Discharge Diagnosis (1) Essential hypertension Priority: Secondary Status: Chronic (2) Diabetes mellitus Priority: Secondary Status: Chronic Qualifiers: Diabetes mellitus type: type 2 Diabetes mellitus terminal gauger insulin use: without terminal gauger use Diabetes mellitus complication status: with unspecified complications Qualified Code(s): E11.8 - Type 2 diabetes mellitus with unspecified complications (3) Atrial fibrillation with RVR Priority: Secondary Status: Chronic (4) DVT prophylaxis Priority: Primary Status: Resolved (5) Elevated troponin Priority: Primary Status: Acute (6) Non-ischemic cardiomyopathy Priority: Secondary Status: Chronic (7) Defibrillator discharge Priority: Primary Status: Acute (8) ANNY (acute kidney injury) Priority: Primary Status: Resolved (9) Hypokalemia Priority: Primary Status: Resolved (10) Hypomagnesemia Priority: Primary Status: Resolved Hospital course: Mr. Li is a 72 year old male with medical history of hypertension, diabetes mellitus, hyperlipidemia, atrial fibrillation on warfarin, with AICD. Presented to the hospital following multiple shocks from his defibrillator. The patient used to be on amiodarone which was discontinued January 2018 due to abnormal pulmonary function testing. The patient has been on sinus rhythm since admission. Cardiology evaluation noted, septic patient evaluated for potential diaphragmatic pacing concerns, the patient was recommended by cardiology to have electrophysiology review report during this week as outpatient.Per [facility] Pacer tech, LV lead setting from all V1 to V3 to L V1 to V2 with no complaints and testing within normal limits. He has history of nonischemic cardiomyopathy with ejection fraction of 15%, euvolemic during this admission. The patient also had electrolyte abnormalities including hypokalemia and hypomagnesemia on admission, this has been replaced and now within normal limit. Elevated troponin due to multiple shocks by defibrillator. Seen and examined at bedside, has tingling sensation on L abdomen, abdomen exam is unremarkable,patient thinks it might be coming from his PCM/AICD. Cardiology was re-consulted due to persistent complaint by patient feeling diaphragmatic pacing, no urgent intervention necessary per cardio, electrolytes are stable No change to home meds Follow up with PCP and cardiology Discharge discussed with: patient, family, nurse, case management, cost consultant - Time Spent with Patient Total time spent providing and/or coordinating discharge services: Greater than 30 minutes - Discharge Medications Home Medications: Atorvastatin [Lipitor] 40 mg PO HS 05/04/17 [History] Metformin HCl [Metformin HCl ER] 1,000 mg PO QPM 05/04/17 [History] Aspirin [Lo-Dose Aspirin EC] 81 mg PO QPM 07/06/17 [History] Cholecalciferol (D-3) [Vitamin D] 1,000 unit PO QPM 07/06/17 [History] Docusate Sodium [Stool Softener] 100 mg PO QPM 07/06/17 [History] Warfarin [Coumadin] 2.5 mg PO 1800 12/17/17 [History] Lisinopril [Zestril] 5 mg PO QPM 03/27/18 [History] Metoprolol Succinate [Toprol Xl] 100 mg PO QPM 03/27/18 [History] Warfarin Sodium 1 mg PO 1800 03/27/18 [History] Allergies/Adverse Reactions: 3 Allergy/AdvReac Type Severity Reaction Status Date / Time No Known Allergies Allergy Verified 03/27/18 17:02 Date of admission: 03/27/18 19:47 Primary care physician: Angel Del Rosario MD Consults: 03/27/18 21:02 Consult to Pastoral Services [CONS] Routine Comment: 03/30/18 12:08 Consult to Cardiology [CONS] Routine Consulting Provider: Jamie Grimes Comment: Reason for Consult: Still complaining of abdomen shocks from PCM Call Completed: Yes Discharging clinician: Anderson Amor Anticipated date of discharge: 03/30/18 - Constitutional Vitals: Temp Pulse Resp BP Pulse Ox 97.6 F 60 18 140/98 90 03/30/18 11:34 03/30/18 11:34 03/30/18 11:34 03/30/18 11:34 03/30/18 11:34 General appearance: Present: A&O X 3, no acute distress, answers questions appropriately - Head Head exam: Present: atraumatic, normocephalic - Eye Eye exam: Present: PERRL, conjuntiva pink, sclera anicteric Pupils: Present: PERRL - Neck Neck exam general surgery: Present: supple, trachea midline. Absent: lymphadenopathy - Respiratory Respiratory exam: Present: CTAB. Absent: accessory muscle use, rales, rhonchi, wheezes - Cardiovascular Cardiovascular exam: Present: RRR, +S1, +S2. Absent: diastolic murmur, gallop, rubs, systolic murmur - GI/Abdominal GI/Abdominal exam: Present: normal bowel sounds, soft, no peritoneal signs. Absent: distended, tenderness - Extremities Exam Extremities exam: Present: warm, radial pulses palpable and symmetrical. Absent : calf tenderness, cyanotic, pedal edema - Neurological Exam Neurological exam: Present: alert, CN II-XII intact, oriented X3, no focal deficits. Absent: pronater drift, facial droop, speech deficit - Skin Skin exam: Present: dry, intact - Patient Status Disposition: Home, Self-Care Condition: Good Functional capacity at discharge: independent ambulation Overall status at discharge: patient is back to baseline - Discharge Instructions Instructions: Atrial Fibrillation (DC), Chest Pain (DC), Pacemaker (DC), Pulmonary Embolism (DC), Diabetes Mellitus Type 2 in Adults (DC), Chronic Hypertension (DC) Follow Up With: Angel Del Rosario MD [Primary Care Provider] - 04/07/18 2:15 pm - Diet and Activity Activity: resume usual activities as tolerated Diet: diabetic diet, low fat, low cholesterol, low salt diet
--- NOTE | 2018-03-30 13:22 | Event Note ---
Date of Encounter: 03/30/18 Time of Encounter: 13:20 - Cardiology Event Note Consult for reevaluation for concerns of diaphragmatic pacing. No formal consult warranted. 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
[2018-03-30] MEDS: Cholecalciferol (D-3) 1,000 UNIT TABLET PO SCH (16:55)
[2018-03-30] MEDS: Metoprolol XL (24 HR) Succ 50 MG TAB.ER.24H PO SCH (16:55)
[2018-03-30] MEDS: Aspirin Enteric Coated 81 MG Tablet PO SCH (16:55)
[2018-03-30] MEDS ORDERED: *HR* Warfarin 2.5 MG TABLET PO SCH (18:00)
[2018-03-31 04:54] LABS: Prothrombin Time 21.9 Seconds (9.4-12.1)
[2018-03-31] MEDS: Insulin LISPRO 300 UNITS/3 ML VIAL SQ SCH ×3 (09:04→16:51)
[2018-03-31] MEDS: Magnesium Oxide 400 MG TABLET PO SCH (09:06)
--- NOTE | 2018-03-31 10:50 | Internal Med Progress Note ---
Date of Encounter: 03/31/18 Time of Encounter: 10:50 - Assessment and plan (1) Essential hypertension Current Visit: Yes Status: Chronic Assessment and plan: Continue home meds, check stat chem, resume lisinopril (2) Diabetes mellitus Current Visit: Yes Status: Chronic Assessment and plan: Continue sliding scale Qualifiers: Diabetes mellitus type: type 2 Diabetes mellitus terminal operations supervisor insulin use: without intermediate use Diabetes mellitus complication status: with unspecified complications Qualified Code(s): E11.8 - Type 2 diabetes mellitus with unspecified complications (3) Atrial fibrillation with RVR Current Visit: Yes Status: Chronic Assessment and plan: Resolved, continue current meds (4) DVT prophylaxis Current Visit: Yes Status: Resolved Assessment and plan: On Coumadin, INR therapeutic (5) Elevated troponin Current Visit: Yes Status: Acute Assessment and plan: Likely demand ischemia. ECHO unremarkable, continue to monitor (6) Non-ischemic cardiomyopathy Current Visit: Yes Status: Chronic Assessment and plan: Continue cardiac meds. The patient has limited echo back in June 2017 that showed an EF of 20-25%. The patient had an AICD placed back in December. (7) Defibrillator discharge Current Visit: Yes Status: Acute Assessment and plan: Cardio input noted, for interrogation Electrolytes acceptable (8) ANNY (acute kidney injury) Current Visit: Yes Status: Resolved Assessment and plan: resolved (9) Hypokalemia Current Visit: Yes Status: Resolved Assessment and plan: resolved (10) Hypomagnesemia Current Visit: Yes Status: Resolved Assessment and plan: resolved - Time Spent With Patient Total time spent is greater than 50% in coordination of care (as documented) at patient's floor/unit and/or counseling patient: - Subjective Interval history: Seen and evaluated at bedside with family Still having abdominal pacing No other complains Per cardio eval on 03/30, PCM interrogation will be done - Constitutional Vitals: Temp Pulse Resp BP Pulse Ox 97.4 F L 65 16 133/87 94 03/31/18 07:53 03/31/18 07:53 03/31/18 07:53 03/31/18 07:53 03/31/18 07:53 General appearance: Present: A&O X 3, pleasant, no acute distress, answers questions appropriately - Head Head exam: Present: atraumatic, normocephalic - Eye Eye exam: Present: PERRL, conjuntiva pink, sclera anicteric Pupils: Present: PERRL - Neck Neck exam general surgery: Present: supple, trachea midline. Absent: lymphadenopathy - Respiratory Respiratory exam: Present: CTAB. Absent: accessory muscle use, rales, rhonchi, wheezes - Cardiovascular Cardiovascular exam: Present: RRR, +S1, +S2. Absent: diastolic murmur, gallop, rubs, systolic murmur - GI/Abdominal GI/Abdominal exam: Present: normal bowel sounds, soft, no peritoneal signs. Absent: distended, tenderness - Extremities Exam Extremities exam: Present: warm, radial pulses palpable and symmetrical. Absent : calf tenderness, cyanotic, pedal edema - Neurological Exam Neurological exam: Present: alert, CN II-XII intact, oriented X3, no focal deficits. Absent: pronater drift, facial droop, speech deficit - Skin Skin exam: Present: dry, intact Internal Medicine: Result - Labs CBC & Chem 7: 03/28/18 02:38 03/31/18 13:52 - ABG Interpretation ABG results: PT/INR, D-dimer PT 21.9 Seconds (9.4-12.1) H 03/31/18 04:24 Consult Discharge Plan - Plan Instructions: Atrial Fibrillation (DC), Chest Pain (DC), Pacemaker (DC), Pulmonary Embolism (DC), Diabetes Mellitus Type 2 in Adults (DC), Chronic Hypertension (DC) Referrals: Angel Del Rosario MD [Primary Care Provider] - 04/07/18 2:15 pm
[2018-03-31 14:45] LABS: BUN/Creatinine Ratio 17 (6-26); Blood Urea Nitrogen 18 mg/dL (8-23); Calcium 9.1 mg/dL (8.6-10.3); Carbon Dioxide 25 mEq/L (23-29); Chloride 104 mEq/L (98-107); Glucose 146 mg/dL (70-105); Osmolality,Calculated 285 (280-300); Potassium 4.3 mEq/L (3.5-5.1); Sodium 135 mEq/L (136-145); eGFR For African Americans > 60 (> 60); eGFR For Non-African Americans > 60 (> 60)
[2018-03-31 15:26] VITALS: BP 130/88
[2018-03-31] MEDS: Cholecalciferol (D-3) 1,000 UNIT TABLET PO SCH (18:06)
[2018-03-31] MEDS: Aspirin Enteric Coated 81 MG Tablet PO SCH (18:06)
[2018-03-31] MEDS: Metoprolol XL (24 HR) Succ 50 MG TAB.ER.24H PO SCH (18:09)
== END 2018-03-31 18:33 | disposition home or self-care (01) | DRG 309 ==
LOC: EMEROO 14:59 → 2NENU 14:59 → SUATTDRO 19:47 → 2NENU 20:02
PROVIDERS: ADMIT Internal Medicine; ATTEND Internal Medicine

== ENCOUNTER 2018-09-21 13:46 | Observation (INO) ==
[2018-09-21 15:03] LABS: Basophils # 0.1 K/mcL (0.0-0.2); Basophils % 0.6 %; Eosinophils # 0.2 K/mcL (0.0-0.6); Eosinophils % 1.1 %; Hematocrit 40.5 % (37.5-50.1); Immature Granulocytes % 0.4 % (0-4); Lymphocytes % 15.1 %; Mean Corpuscular HGB Conc 32.1 g/dL (31.6-35.5); Mean Corpuscular Hemoglobin 30.8 pg (28.0-33.3); Mean Platelet Volume 9.6 fL (9.4-12.4); Monocytes # 1.2 K/mcL (0.0-1.3); Platelet Count 275 K/mcL (140-400); Red Blood Count 4.22 M/mcL (4.19-5.50); Red Cell Distribution Width 14.3 % (11.5-14.5); Segmented Neutrophils % 73.8 %
[2018-09-21 15:08] LABS: Bilirubin,Urine Small (Negative); Blood,Urine Large (Negative); Clarity,Urine Cloudy (Clear); Glucose,Urine (UA) Normal (Normal); Ketones,Urine Trace mg/dL (Negative); Leukocyte Esterase,Urine Small (Negative); Nitrite,Urine Negative (Negative); PH,Urine 5.5 pH Units (5.0-8.0); Protein,Urine >=300 mg/dL (Neg-Trace); Specific Gravity,Urine 1.013 (1.010-1.025); Urobilinogen,Urine Normal (Normal)
[2018-09-21 15:10] LABS: INR 2.7; Prothrombin Time 30.7 Seconds (9.4-12.1)
[2018-09-21 15:13] LABS: Activated Partial Thrombo Time 41.2 Seconds (26.0-36.0)
[2018-09-21 15:14] LABS: Color,Urine Brown (Yellow)
--- NOTE | 2018-09-21 15:23 | Emergency Department Note ---
Disposition Clinical Impression: Adrenal mass Hematuria Qualifiers: Hematuria type: gross Qualified Code(s): R31.0 - Gross hematuria Disposition: Admitted As Inpatient Condition: Good Time of Disposition: 20:11 Male Urogenital HPI - General Chief complaint: ED Urogenital-Male Stated complaint: Blood in urine Time Seen by Provider: 09/21/18 13:52 Source: patient, family Mode of arrival: ambulatory Limitations: no limitations Nursing Notes Reviewed: Yes Vital Signs Reviewed: Yes - History of Present Illness HPI Narrative: 73-year-old male history of atrial fibrillation on Coumadin, AICD/pacemaker presents to emergency department with blood in urine. He reports dysuria hematuria and lower abdominal pain. Symptoms have been ongoing for the past 24 hours. He currently has noticed blood in his urine. Denies any recent abdominal trauma. Denies any chest pain, shortness of breath, lightheadedness. Denies any nausea or vomiting. Denies any blood in his stool, black tarry stool, hemoptysis or hematemesis. He reports some weight gain. Denies any fevers. No history of cancer. No history of kidney stones. Pt Subjective Complaint: dysuria - Related Data Home Medications Medication Instructions Recorded Confirmed Aspirin [Adult Aspirin Regimen] 81 mg PO DAILY 08/25/18 08/25/18 Atorvastatin [Lipitor] 40 mg PO HS 08/25/18 08/25/18 Cholecalciferol (Vitamin D3) 1,000 unit PO DAILY 08/25/18 08/25/18 [Vitamin D] Digoxin [Lanoxin] 0.25 mg PO DAILY 08/25/18 08/25/18 Lisinopril [Zestril] 5 mg PO DAILY 08/25/18 08/25/18 Magnesium Oxide [Mag-Oxide 400 mg PO DAILY 08/25/18 08/25/18 Magnesium] Metformin HCl [Fortamet] 500 mg PO BID 08/25/18 08/25/18 Metoprolol [Lopressor] 100 mg PO DAILY 08/25/18 08/25/18 Warfarin [Coumadin] 3 mg PO 1800 08/25/18 08/25/18 Previous Rx's Medication Instructions Recorded Digoxin [Lanoxin] 0.25 mg PO DAILY #30 tablet 08/25/18 Digoxin [Lanoxin] 0.25 mg PO DAILY #30 tablet 08/25/18 Allergies Allergy/AdvReac Type Severity Reaction Status Date / Time No Known Allergies Allergy Verified 08/25/18 13:55 All systems ED: reviewed and negative except as stated. Review of Systems: As Per HPI Constitutional: Denies: fever, chills, weakness, weight change ENT ED: Denies: congestion Cardiovascular: Denies: chest pain Respiratory: Denies: cough, dyspnea Gastrointestinal: Reports: abdominal pain. Denies: nausea, vomiting, hematemesi s, melena, hematochezia Genitourinary: Reports: dysuria, hematuria. Denies: testicular pain, testicular mass Musculoskeletal: Denies: back pain Integumentary: Denies: rash, abrasion Neurological: Reports: numbness. Denies: weakness Psychiatric: Denies: anxiety, depression Endocrine: Denies: fatigue Past Medical History - Past Medical History Attestation: Yes The following information was validated with the patient. Source: patient Medical history: Reports: atrial fibrillation, diabetes, hyperlipidemia, hypertension Surgical history: Reports: orthopedic, other (Right shoulder replacement, right ankle fixation, finger amputation), pacemaker/AICD, thyroidectomy, other (Throat surgery) Psychiatric history: Reports: no psych history - Social History Smoking Status: Never smoker Smokeless Tobacco Status: No Alcohol use: Reports: none Drug use: Reports: none Physical Exam - General Limitations: no limitations General appearance: alert, in no apparent distress - Head Head exam: atraumatic, normocephalic, normal inspection - Chest Chest inspection: Present: normal inspection, symmetric chest wall rise - Respiratory Respiratory exam: Present: normal lung sounds bilaterally. Absent: respiratory distress, wheezes - Cardiovascular Cardiovascular exam: Present: regular rate, normal rhythm, normal heart sounds - Abdominal Exam Abdominal Exam: Present: soft, tenderness. Absent: Non-Tender, hernia Abdominal Tenderness: Present: suprapubic - Male exam: Present: normal inspection, normal testicular lie. Absent: circumcised, lesions, testicular tenderness, urethral discharge, scrotal swelling - Extremities Exam Extremities exam: Present: normal inspection, full ROM. Absent: tenderness - Neurological Exam Neurological exam: Present: alert, oriented X3, normal gait - Psychiatric Psychiatric exam: Present: normal affect, normal mood - Skin Skin exam: Present: warm, dry, intact, normal color. Absent: rash, cyanosis, diaphoresis Course Course Narrative: Patient presents with hematuria in dysuria. He is also complaining of some lower abdominal discomfort. His abdomen is mildly distended in the suprapubic region. He does not have any testicular tenderness or swelling. There is some dried blood at his meatus. His urine sample is grossly bloody. Patient takes Coumadin for his atrial fibrillation but denies any G.I. bleed symptoms. At this time will work him up with basic labs including the CT image to evaluate for any masses or malignancy. Patients in agreement with this plan. - Reevaluation(s) Reevaluation #1: Urinalysis is grossly bloody and consistent with hematuria. No signs of infection. His labs or otherwise unremarkable. His hemoglobin stable. His INR appears at therapeutic level 2.7. CT scan reveals adrenal mass. It also shows some compression fractures. Patient reports a history of compression fracture several years ago from a fall from roof. He denies any acute symptoms such as incontinence, weakness or significant back pain. He does report intermittent numbness that has been unchanged. Given the persistence of his hematuria and currently on anticoagulation Coumadin patient will be likely admitted. Will discuss with urology regarding the adrenal mass and hematuria. Patients in agreement with this plan. - Consultations Consultation #1: Spoke to the on-call urologist Dr. Kramer who agrees on admission for further observation of the hematuria and possible further evaluation for the adrenal mass. Do not recommend emergent CT imaging for the adrenal mass at this time. Happy to see and follow the patient in consultation. Time: 19:17 Consultation #2: Spoke with on-call hospitalist padmini Vargas to admit for adrenal mass and hematuria with old chronic compression fractures without any acute neurologic findings. No further orders at this time Time: 20:10 Vital Signs Temperature 98.0 F 09/21/18 13:52 Pulse Rate 64 09/21/18 13:52 Respiratory Rate 16 09/21/18 13:52 Blood Pressure 131/84 09/21/18 13:52 O2 Sat by Pulse Oximetry 94 09/21/18 13:52 Temperature 98.8 F 09/21/18 21:19 Pulse Rate 115 09/21/18 21:19 Respiratory Rate 14 09/21/18 21:19 Blood Pressure 114/85 09/21/18 21:19 O2 Sat by Pulse Oximetry 95 09/21/18 20:47 Oxygen Delivery Oxygen Delivery Room Air Urogenital-Male - MDM Narrative Medical decision making narrative: Patient was discussed with my attending physician who agrees with ED management and final disposition. They independently evaluated the patient. Please refer to their attestation to this encounter for additional information. This note was generated by [employer] voice recognition software and as a result grammatical or spelling errors may occur using this program. - Medical Records Medical records reviewed: Yes I reviewed the patient's medical records. - Lab Data Lab results reviewed: Yes I reviewed the patient's lab results. Result diagrams: 09/21/18 14:40 09/21/18 14:40 Lab Results 09/21/18 09/21/18 09/21/18 Range/Units 14:40 14:40 14:40 WBC 13.5 H D (4.3-11.1) K/mcL RBC 4.22 (4.19-5.50) M/mcL Hgb 13.0 (12.9-16.9) g/dL Hct 40.5 (37.5-50.1) % MCV 96.0 (83.0-100.0) fL MCH 30.8 (28.0-33.3) pg MCHC 32.1 (31.6-35.5) g/dL RDW 14.3 (11.5-14.5) % Plt Count 275 (140-400) K/mcL MPV 9.6 (9.4-12.4) fL Immature Gran % 0.4 (0-4) % Seg Neutrophils % 73.8 % Lymphocytes % 15.1 % Monocytes % 9.0 % Eosinophils % 1.1 % Basophils % 0.6 % Neutrophils # 10.0 H (1.6-8.9) K/mcL Lymphocytes # 2.0 (0.6-4.6) K/mcL Monocytes # 1.2 (0.0-1.3) K/mcL Eosinophils # 0.2 (0.0-0.6) K/mcL Basophils # 0.1 (0.0-0.2) K/mcL PT 30.7 H (9.4-12.1) Seconds INR 2.7 APTT 41.2 H (26.0-36.0) Seconds Sodium 137 (136-145) mEq/L Potassium 4.5 (3.5-5.1) mEq/L Chloride 105 (98-107) mEq/L Carbon Dioxide 26 (23-29) mEq/L BUN 17 (8-23) mg/dL Creatinine 1.01 (0.70-1.30) mg/dL Est GFR ( Amer) > 60 (> 60) Est GFR (Non-Af Amer) > 60 (> 60) BUN/Creatinine Ratio 17 (6-26) Glucose 123 H (70-105) mg/dL Calculated Osmolality 287 (280-300) Calcium 9.1 (8.6-10.3) mg/dL Creatine Kinase 74 (30-223) Units/L Beta-Hydroxybutyric Acd (0.02-0.27) mmol/L Ur Specimen Adequacy Urine Color (Yellow) Urine Clarity (Clear) Urine pH (5.0-8.0) pH Units Ur Specific [place] (1.010-1.025) Urine Protein (Neg-Trace) mg/dL Urine Glucose (UA) (Normal) mg/dL Urine Ketones (Negative) mg/dL Urine Blood (Negative) Urine Nitrite (Negative) Urine Bilirubin (Negative) Urine Urobilinogen (Normal) mg/dL Ur Leukocyte Esterase (Negative) Ur Culture Indicated? (NO) Digoxin 1.1 (0.8-2.0) ng/mL 09/21/18 09/21/18 Range/Units 14:42 14:51 WBC (4.3-11.1) K/mcL RBC (4.19-5.50) M/mcL Hgb (12.9-16.9) g/dL Hct (37.5-50.1) % MCV (83.0-100.0) fL MCH (28.0-33.3) pg MCHC (31.6-35.5) g/dL RDW (11.5-14.5) % Plt Count (140-400) K/mcL MPV (9.4-12.4) fL Immature Gran % (0-4) % Seg Neutrophils % % Lymphocytes % % Monocytes % % Eosinophils % % Basophils % % Neutrophils # (1.6-8.9) K/mcL Lymphocytes # (0.6-4.6) K/mcL Monocytes # (0.0-1.3) K/mcL Eosinophils # (0.0-0.6) K/mcL Basophils # (0.0-0.2) K/mcL PT (9.4-12.1) Seconds INR APTT (26.0-36.0) Seconds Sodium (136-145) mEq/L Potassium (3.5-5.1) mEq/L Chloride (98-107) mEq/L Carbon Dioxide (23-29) mEq/L BUN (8-23) mg/dL Creatinine (0.70-1.30) mg/dL Est GFR ( Amer) (> 60) Est GFR (Non-Af Amer) (> 60) BUN/Creatinine Ratio (6-26) Glucose (70-105) mg/dL Calculated Osmolality (280-300) Calcium (8.6-10.3) mg/dL Creatine Kinase (30-223) Units/L Beta-Hydroxybutyric Acd 0.20 (0.02-0.27) mmol/L Ur Specimen Adequacy See below A Urine Color Brown (Yellow) Urine Clarity Cloudy A (Clear) Urine pH 5.5 (5.0-8.0) pH Units Ur Specific [place] 1.013 (1.010-1.025) Urine Protein >=300 H (Neg-Trace) mg/dL Urine Glucose (UA) Normal (Normal) mg/dL Urine Ketones Trace H (Negative) mg/dL Urine Blood Large H (Negative) Urine Nitrite Negative (Negative) Urine Bilirubin Small H (Negative) Urine Urobilinogen Normal (Normal) mg/dL Ur Leukocyte Esterase Small H (Negative) Ur Culture Indicated? YES A (NO) Digoxin (0.8-2.0) ng/mL - Radiology Data Radiology results reviewed: Yes I reviewed the patient's radiology results. Abdomen/Pelvis CT 09/21/18 16:30 IMPRESSION: 1. No appendicitis, obstructive uropathy or cholecystitis. 2. 28 mm right adrenal lesion. Adrenal protocol CT may be considered to further evaluate. 3. Prostatomegaly in urinary bladder wall thickening. 4. Multifocal levels of compression involving the lumbar spine with up to 30% compression at the L5 level. 70% compression at the at the L2 level. D/ / Nathan Oliveros / Nathan Oliveros Interpreting Provider: Nathan Oliveros Attestation Statement - Attestation Attestation: I, Alistair Zafar, examined this patient and my medical decision-making was reviewed with the DIGITAL EDITOR/PA/Advanced Practice Nurse/Resident Physician. I agree with the documented findings, disposition and treatment plan as described except to the extent set forth below. 73-year-old male presents emergency Department with concerns of blood in his urine. Patient states that this is never occurred to him in the past. Patient takes Coumadin for atrial fibrillation. No recent trauma. No abdominal pain, nausea, vomiting, diarrhea, hematochezia, melena. Patient reports his urine is very dark red but denies seeing clots. Denies chest pain, shortness of breath. CTA of the abdomen and pelvis shows a renal mass. Patient will be admitted to the hospitalist for further evaluation of hematuria while on Coumadin and adrenal mass.
[2018-09-21 15:43] LABS: BUN/Creatinine Ratio 17 (6-26); Blood Urea Nitrogen 17 mg/dL (8-23); Calcium 9.1 mg/dL (8.6-10.3); Carbon Dioxide 26 mEq/L (23-29); Chloride 105 mEq/L (98-107); Creatine Kinase 74 Units/L (30-223); Glucose 123 mg/dL (70-105); Osmolality,Calculated 287 (280-300); Potassium 4.5 mEq/L (3.5-5.1); Sodium 137 mEq/L (136-145); eGFR For Non-African Americans > 60 (> 60)
[2018-09-21] MEDS ORDERED: Isovue-370 500 ML INFUS..BTL IV ONE (16:30)
[2018-09-21 16:52] LABS: Digoxin 1.1 ng/mL (0.8-2.0)
[2018-09-21] MEDS ORDERED: 0.9 % Sodium Chloride 1,000 ML IVC ONE (19:56)
[2018-09-21] MEDS ORDERED: 0.9 % Sodium Chloride 1,000 ML IVC SCH (20:00)
[2018-09-21] MEDS ORDERED: Naloxone 0.4 MG/ML INJ IVP PRN (22:15)
--- NOTE | 2018-09-21 22:16 | Internal Med History&Physical ---
<Rodríguez Ayon - Last Filed: 09/22/18 04:21> Date of Encounter: 09/22/18 Time of Encounter: 22:15 Internal Medicine - H&P: HPI Chief complaint: Blood in Urine Admitted From: Home Plans for Post Hospital Care: Home History of present illness: Mr. Li is a 73 year old male with past medical history significant for A. fib on Coumadin, diabetes mellitus, hypertension, hyperlipidemia, pacemaker/AICD who presents with gross hematuria that he first noticed this morning. States that he noticed bright red blood in the toilet when he urinated. Associated with dysuria, urinary urgency, urinary frequency, slight back/flank pain, suprapubic tenderness. Denies fevers/chills, lightheadedness/dizziness, chest pain, palpitations, shortness of breath, headache, vision changes, abdominal pain, vomiting, diarrhea, melena, hematemesis. Denies having any similar incidents in the past. Denies history of kidney stones or unbearable flank pain. Denies history of smoking, denies history of kidney cancers. Upon arriving to the ED, still was having hematuria. In the ED, vitals were as follows: T = 98.0, HR = 64, RR = 16, BP = 131/84, O2 = 94. CBC: WBC = 13.5. Otherwise within normal limits. BMP: Within normal limits. PT = 30.7, INR = 2.7, PTT = 41.2 CK = 47 (normal) Beta hydroxybutyric acid = 0.20 (normal) UA: Cloudy, urine protein elevated, large blood, trace ketones, negative nitrates, small leukocyte esterase Digoxin level = 1.1 CT abdomen and pelvis with IV contrast: 1. No appendicitis, obstructive uropathy or cholecystitis. 2. 28 mm right adrenal lesion. Adrenal protocol CT may be considered to further evaluate. 3. Prostatomegaly in urinary bladder wall thickening. 4. Multifocal levels of compression involving the lumbar spine with up to 30% compression at the L5 level. 70% compression at the at the L2 level. After imaging revealed multiple compression fractures, patient noted that those had been there after he had fallen from a roof. Denied back pain, urinary incontinence, saddle anesthesia, lower extremity weakness. Patient was also noted to have right-sided adrenal mass. Dr. Kramer, urologist, was consulted and recommended admission to further evaluate hematuria and adrenal mass. Did not recommend additional CT imaging of the adrenal mass this time. At time of my exam, patient resting comfortably in bed in no acute distress. While initial UA sample in the ED showed gross hematuria, patient noted that his urine was now clear and there was no hematuria. Noted mild suprapubic tenderness, but denies dysuria, urinary urgency frequency. Given dose of Cef triaxone and maintenance IVF. Admitted for further workup of hematuria and adrenal mass. Past Med Surg Social Fam HX - Past Medical History Attestation: Yes The following information was validated with the patient. Source: patient, old records reviewed Medical history: atrial fibrillation, diabetes, hyperlipidemia, hypertension Additional medical history: sleep apnea, colon polyps. PACEMAKER/DEFIBRILATOR Psychiatric history: no psych history - Past Surgical History Surgical History: orthopedic, other (Right shoulder replacement, right ankle fixation, finger amputation), pacemaker/AICD, thyroidectomy, other (Throat surgery) Additional surgical history: RIGHT ANKLE SURGERY, AMPUTATION FINGER, THROAT SURGERY, RIGHT TOTAL SHOULD REPLACEMENT - Social History Smoking Status: Never smoker Smokeless Tobacco Status: No Alcohol use: none Drug use: none - Family History Mother Living Status: Hx Family Cardiac Disorders: Yes (Blood clots/Stroke) Hx Family Endocrine Disorder: Yes (DM) Brother Living Status: Hx Family Cardiac Disorders: Yes (heart transplant) Hx Family Cancer: Yes (Brain cancer) Father Living Status: Hx Family Cancer: Yes (Bone cancer) Internal Medicine - H&P: Meds Aspirin [Adult Aspirin Regimen] 81 mg PO DAILY 08/25/18 [History] Atorvastatin [Lipitor] 40 mg PO HS 08/25/18 [History] Cholecalciferol (Vitamin D3) [Vitamin D] 1,000 unit PO DAILY 08/25/18 [History] Digoxin [Lanoxin] 0.25 mg PO DAILY 08/25/18 [History] Lisinopril [Zestril] 5 mg PO DAILY 08/25/18 [History] Magnesium Oxide [Mag-Oxide Magnesium] 400 mg PO DAILY 08/25/18 [History] Metformin HCl [Fortamet] 500 mg PO BID 08/25/18 [History] Metoprolol [Lopressor] 100 mg PO DAILY 08/25/18 [History] Warfarin [Coumadin] 3 mg PO 1800 08/25/18 [History] Allergy/AdvReac Type Severity Reaction Status Date / Time No Known Allergies Allergy Verified 08/25/18 13:55 All Systems PM: A 10-system review of systems was performed and is negative for pertinent findings except as documented above in the HPI. - Constitutional Constitutional: no anorexia, no chills, no fatigue, no fever(s), no falls, no lethargy, no malaise, no weakness - EENT Eyes: no blurry vision, no change in vision Nose, mouth and throat: no facial pain, no neck mass, no sinus pain - Cardiovascular Cardiovascular ROS IM: no chest pain, no diaphoresis, no dyspnea, no dyspnea on exertion, no lightheadedness, no palpitations, no syncope - Respiratory Respiratory: no cough, no dyspnea, no hemoptysis, no dyspnea on exertion - Gastrointestinal Gastrointestinal: abdominal pain, no constipation, no diarrhea, no melena, no nausea, no vomiting Additional comments: Suprapubic tenderness - Genitourinary Genitourinary ROS male: dysuria, flank pain, hematuria, urinary frequency, urinary urgency, no genital lesions - Musculoskeletal Musculoskeletal ROS IM: no back pain, no myalgias - Integumentary Integumentary IM: no rash - Neurological Neurological ROS: no confusion, no frequent falls, no headache(s), no weakness - Psychiatric Psychiatric: no confusion - Constitutional Vitals: Temp Pulse Resp BP Pulse Ox 98.8 F 115 14 114/85 95 09/21/18 21:19 09/21/18 21:19 09/21/18 21:19 09/21/18 21:19 09/21/18 20:47 General appearance: Present: cooperative, A&O X 3, pleasant, no acute distress, answers questions appropriately Exam: GEN: AOx3, NAD, resting comfortably in bed HEENT: Atraumatic, normocephalic, EOMI, PERRLA CARDIO: RRR, no murmurs, rubs, gallops RESP: CTAB, no wheezes, rales, rhonchi ABD: Suprapubic mild tenderness to palpation, non-distended, bowel sounds present, no guarding or rebound EXT: No lower extremity edema b/l; no rashes or lesions NEURO: CN 2-12 intact; no focal deficits Internal Med - H&P Results - Labs CBC & Chem 7: 09/21/18 14:40 09/21/18 14:40 Labs: Short CBC 09/21/18 Range/Units 14:40 WBC 13.5 H D (4.3-11.1) K/mcL Hgb 13.0 (12.9-16.9) g/dL Hct 40.5 (37.5-50.1) % Plt Count 275 (140-400) K/mcL Neutrophils # 10.0 H (1.6-8.9) K/mcL BMP 09/21/18 14:40 Sodium 137 Potassium 4.5 Chloride 105 Carbon Dioxide 26 BUN 17 Creatinine 1.01 Glucose 123 H Calcium 9.1 Urine 09/21/18 Range/Units 14:42 Urine Color Brown (Yellow) Urine Clarity Cloudy A (Clear) Urine pH 5.5 (5.0-8.0) pH Units Ur Specific [place] 1.013 (1.010-1.025) Urine Protein >=300 H (Neg-Trace) mg/dL Urine Glucose (UA) Normal (Normal) mg/dL - Impressions ITS Impressions Abdomen/Pelvis CT 09/21/18 16:30 IMPRESSION: 1. No appendicitis, obstructive uropathy or cholecystitis. 2. 28 mm right adrenal lesion. Adrenal protocol CT may be considered to further evaluate. 3. Prostatomegaly in urinary bladder wall thickening. 4. Multifocal levels of compression involving the lumbar spine with up to 30% compression at the L5 level. 70% compression at the at the L2 level. D/ / Nathan Oliveros / Nathan Oliveros Interpreting Provider: Nathan Oliveros - Assessment and plan (1) Hematuria Current Visit: Yes Status: Acute Assessment and plan: Mr. Li is a 73 year old male with past medical history significant for A. fib on Coumadin, diabetes mellitus, hypertension, hyperlipidemia, pacemaker/AICD who presents with gross hematuria that he first noticed this morning. Associated with urgency, frequency, suprapubic tenderness, slight flank pain Hx of Afib on Coumadin Vitals hemodynamically stable CBC: WBC = 13.5. Otherwise within normal limits. BMP: Within normal limits. PT = 30.7, INR = 2.7, PTT = 41.2 CK = 47 (normal) Beta hydroxybutyric acid = 0.20 (normal) UA: Cloudy, urine protein elevated, large blood, trace ketones, negative nitrates, small leukocyte esterase CT abdomen and pelvis with IV contrast: 1. No appendicitis, obstructive uropathy or cholecystitis. 2. 28 mm right adrenal lesion. Adrenal protocol CT may be considered to further evaluate. 3. Prostatomegaly in urinary bladder wall thickening. 4. Multifocal levels of compression involving the lumbar spine with up to 30% compression at the L5 level. 70% compression at the at the L2 level. Dr. Kramer, urologist, was consulted and recommended admission to further evaluate hematuria and adrenal mass. S/p dose of Ceftriaxone, IVF PLAN: Monitor vitals Monitor for further episodes of hematuria Follow Urine Culture - Ceftriaxone given due to elevated WBC, dysuria, hematuria, urgency, frequency Cont IVF Urology recommendations appreciated Qualifiers: Hematuria type: gross Qualified Code(s): R31.0 - Gross hematuria (2) Adrenal mass Current Visit: Yes Status: Acute Assessment and plan: Incidental adrenal mass found on CT Abd/Pelvis CT abdomen and pelvis with IV contrast: 28 mm right adrenal lesion. Adrenal protocol CT may be considered to further evaluate. Dr. Kramer, urologist, Did not recommend additional CT imaging of the adrenal mass this time. PLAN: Urology recommendations appreciated Follow up outpatient (3) Atrial fibrillation with RVR Current Visit: No Status: Chronic Assessment and plan: Rate controlled on lopressor; anticoagulated on warfarin Currently not in Afib INR = 2.7 Plan: Cont Lopressor Hold Warfarin until Hematuria resolves (4) Diabetes mellitus Current Visit: No Status: Chronic Assessment and plan: Insulin sliding scale Diabetic Diet Qualifiers: Diabetes mellitus type: type 2 Diabetes mellitus nursing home insulin use: without nursing home use Diabetes mellitus complication status: with unspecified complications Qualified Code(s): E11.8 - Type 2 diabetes mellitus with unspecified complications (5) Essential hypertension Current Visit: No Status: Chronic Assessment and plan: BP controlled PLAN: Cont lopressor and lisinopril (6) Non-ischemic cardiomyopathy Current Visit: No Status: Chronic Assessment and plan: Hx of cardiomyopathy with pacemaker/AICD Pt notes he recently restarted digoxin 2 weeks ago Most recent Echo (07/08/17): Impressions: LVEF 20-25%. Severely dilated left ventricle. Severe global left ventricular systolic dysfunction. Atypical septal motion consistent with bundle branch block. Right ventricular size not well evaluated, but function appears normal. Digoxin: 1.1 PLAN: Cont Digoxin, statin, aspirin, lisinopril, lopressor; Hold warfarin until hematuria resolves Monitor vitals (7) DVT prophylaxis Current Visit: No Status: Resolved Assessment and plan: Hold Warfarin EPCDs for now - Time Spent With Patient Total time spent is greater than 50% in coordination of care (as documented) at patient's floor/unit and/or counseling patient: less than 15 minutes <Artemio Mojica - Last Filed: 09/22/18 08:28> Date of Encounter: 09/21/18 Internal Medicine - H&P: HPI History of present illness: Mr. Li is a 73 year old male All Systems PM: A 10-system review of systems was performed and is negative for pertinent findings except as documented above in the HPI. - Constitutional Vitals: Temp Pulse Resp BP Pulse Ox 98.2 F 101 18 118/66 92 09/22/18 06:37 09/22/18 06:37 09/22/18 06:37 09/22/18 06:37 09/22/18 06:37 Internal Med - H&P Results - Labs CBC & Chem 7: 09/22/18 05:51 09/22/18 05:51 Labs: Short CBC 09/21/18 09/22/18 Range/Units 14:40 05:51 WBC 13.5 H D 12.0 H (4.3-11.1) K/mcL Hgb 13.0 12.5 L (12.9-16.9) g/dL Hct 40.5 38.1 (37.5-50.1) % Plt Count 275 255 (140-400) K/mcL Neutrophils # 10.0 H 8.1 (1.6-8.9) K/mcL BMP 09/21/18 09/22/18 14:40 05:51 Sodium 137 136 Potassium 4.5 3.8 Chloride 105 105 Carbon Dioxide 26 24 BUN 17 14 Creatinine 1.01 0.92 Glucose 123 H 147 H Calcium 9.1 8.8 Urine 09/21/18 Range/Units 14:42 Urine Color Brown (Yellow) Urine Clarity Cloudy A (Clear) Urine pH 5.5 (5.0-8.0) pH Units Ur Specific [place] 1.013 (1.010-1.025) Urine Protein >=300 H (Neg-Trace) mg/dL Urine Glucose (UA) Normal (Normal) mg/dL - Impressions ITS Impressions Abdomen/Pelvis CT 09/21/18 16:30 IMPRESSION: 1. No appendicitis, obstructive uropathy or cholecystitis. 2. 28 mm right adrenal lesion. Adrenal protocol CT may be considered to further evaluate. 3. Prostatomegaly in urinary bladder wall thickening. 4. Multifocal levels of compression involving the lumbar spine with up to 30% compression at the L5 level. 70% compression at the at the L2 level. D/ / Nathan Oliveros / Nathan Oliveros Interpreting Provider: Nathan Oliveros - Time Spent With Patient Total time spent is greater than 50% in coordination of care (as documented) at patient's floor/unit and/or counseling patient: - Attending Attestation I performed a history and physical examination of the patient and discussed management with the resident. I reviewed the resident's note and agree with the documented findings and plan of care.
[2018-09-22] MEDS ORDERED: 0.9 % Sodium Chloride 1,000 ML IVC SCH (00:28)
[2018-09-22] MEDS: cefTRIAXone 1,000 MG in Water for inj. (sterile) 20 ML 10 ML IVPB SCH ×2 (00:48→22:21)
[2018-09-22] MEDS ORDERED: *HR* Dextrose 50 % in Water (Syg) 50 ML SYRINGE IVP PRN (04:46)
[2018-09-22] MEDS ORDERED: Dextrose Gel 15 GM/37.5 ML TUBE PO PRN ×2 (04:46)
[2018-09-22] MEDS ORDERED: D5% in Water 1,000 ML IVC PRN (04:46)
[2018-09-22 06:03] LABS: Basophils # 0.1 K/mcL (0.0-0.2); Basophils % 0.5 %; Eosinophils # 0.2 K/mcL (0.0-0.6); Eosinophils % 1.6 %; Hematocrit 38.1 % (37.5-50.1); Hemoglobin 12.5 g/dL (12.9-16.9); Immature Granulocytes % 0.2 % (0-4); Lymphocytes # 2.4 K/mcL (0.6-4.6); Lymphocytes % 19.5 %; Mean Corpuscular HGB Conc 32.8 g/dL (31.6-35.5); Mean Corpuscular Hemoglobin 31.1 pg (28.0-33.3); Mean Corpuscular Volume 94.8 fL (83.0-100.0); Mean Platelet Volume 9.7 fL (9.4-12.4); Monocytes # 1.3 K/mcL (0.0-1.3); Neutrophils # 8.1 K/mcL (1.6-8.9); Platelet Count 255 K/mcL (140-400); Red Blood Count 4.02 M/mcL (4.19-5.50); Red Cell Distribution Width 14.1 % (11.5-14.5); Segmented Neutrophils % 67.2 %
[2018-09-22 06:24] LABS: BUN/Creatinine Ratio 15 (6-26); Blood Urea Nitrogen 14 mg/dL (8-23); Calcium 8.8 mg/dL (8.6-10.3); Carbon Dioxide 24 mEq/L (23-29); Chloride 105 mEq/L (98-107); Glucose 147 mg/dL (70-105); Osmolality,Calculated 285 (280-300); Potassium 3.8 mEq/L (3.5-5.1); Sodium 136 mEq/L (136-145); eGFR For Non-African Americans > 60 (> 60)
[2018-09-22] MEDS: Insulin LISPRO 300 UNITS/3 ML VIAL SQ SCH ×3 (08:04→16:51)
--- NOTE | 2018-09-22 08:49 | Urology - Consult Note ---
<Saima Catherine N - Last Filed: 09/22/18 14:14> Date of Encounter: 09/22/18 Time of Encounter: 08:45 - Assessment and Plan (1) Adrenal mass Current Visit: Yes Status: Acute Assessment and plan: Patient is a 73-year-old male who presents with a 28 mm right adrenal mass. Will review CT findings with Dr. Kramer and discuss reimaging. Plan to reimage adrenal mass with adrenal mass protocol CT. Patient may follow up as outpatient to proceed with cystoscopy and review findings. (2) Hematuria Current Visit: Yes Status: Acute Assessment and plan: Patient is a 73-year-old male who presents the history of gross hematuria. Patient presents with clinical picture of hemorrhagic cystitis. Patient has been placed on IV Rocephin and undergone IV fluid resuscitation with improvement in urine color. Patient denies any smoking history and has no prior history of hematuria. Discussed proceeding with cystoscopy either during admission or as an outpatient, and patient is in agreement. Qualifiers: Hematuria type: gross Qualified Code(s): R31.0 - Gross hematuria Urology CN:[facility] Consult date: 09/22/18 Reason for consult Urology: Other (Right adrenal tumor) History of present illness: Patient is a 73-year-old male who presents with a history of gross hematuria. Patient states he noticed gross blood in the urine yesterday morning with his first void at 6 AM. Patient states urine was bright red without clots. Patient states he also experienced dysuria, frequency, urgency, hesitancy, and low back pain. Patient has been on anticoagulants for several years for atrial fibrillation and has not previously experienced hematuria. Patient presented to the emergency department for urinary symptoms, and he underwent a CT scan of the abdomen and pelvis revealing prostatomegaly and a 28mm right adrenal mass. Patient denies known personal or family history of renal stones or cancer. Currently, urine is clear yellow in bedside urinal, and patient denies flank pain, abdominal pain, dysuria, hematuria, fever or chills. Past Med Surg Social Fam HX - Past Medical History Medical history: atrial fibrillation, diabetes, hyperlipidemia, hypertension Additional medical history: sleep apnea, colon polyps. PACEMAKER/DEFIBRILATOR Psychiatric history: no psych history - Past Surgical History Surgical History: orthopedic, other (Right shoulder replacement, right ankle fixation, finger amputation), pacemaker/AICD, thyroidectomy, other (Throat surgery) Additional surgical history: RIGHT ANKLE SURGERY, AMPUTATION FINGER, THROAT SURGERY, RIGHT TOTAL SHOULD REPLACEMENT - Social History Smoking Status: Never smoker Smokeless Tobacco Status: No Alcohol use: none Drug use: none - Family History Brother Living Status: Hx Family Cardiac Disorders: Yes (heart transplant) Hx Family Cancer: Yes (Brain cancer) Father Living Status: Hx Family Cancer: Yes (Bone cancer) Mother Living Status: Hx Family Cardiac Disorders: Yes (Blood clots/Stroke) Hx Family Endocrine Disorder: Yes (DM) Medications and Allergies Aspirin [Adult Aspirin Regimen] 81 mg PO DAILY 08/25/18 [History] Atorvastatin [Lipitor] 40 mg PO HS 08/25/18 [History] Cholecalciferol (Vitamin D3) [Vitamin D] 1,000 unit PO DAILY 08/25/18 [History] Digoxin [Lanoxin] 0.25 mg PO DAILY 08/25/18 [History] Magnesium Oxide [Mag-Oxide Magnesium] 400 mg PO DAILY 08/25/18 [History] RX: Lisinopril [Zestril] 5 mg PO DAILY 08/25/18 [History] Warfarin [Coumadin] 3 mg PO 1800 08/25/18 [History] Metformin HCl [Metformin HCl ER] 500 mg PO BID 09/22/18 [History] Metoprolol Succinate [Toprol Xl] 100 mg PO DAILY 09/22/18 [History] Allergy/AdvReac Type Severity Reaction Status Date / Time No Known Allergies Allergy Verified 08/25/18 13:55 Review of Systems - Constitutional no chills, no fatigue, no fever(s) - EENT Nose, mouth and throat: no dizziness, no headache(s) - Cardiovascular no chest pain, no diaphoresis, no dyspnea - Respiratory no cough, no dyspnea - Gastrointestinal no abdominal pain, no nausea, no vomiting - Genitourinary flank pain, hematuria, urinary frequency, urinary hesitancy, urinary urgency, no change in urinary stream, no difficulty urinating, no post void dribbling, no urinary incontinence - Musculoskeletal no back pain, no muscle weakness - Integumentary no erythema, no rash, no swelling - Neurological no confusion, no sensory deficit - Psychiatric no anxiety, no confusion - Hematologic/Lymphatic easy bleeding, easy bruising - Allergic/Immunologic no throat swelling, no wheezing Exam Initial Vital Signs Temp Pulse Resp BP Pulse Ox 98.0 F 64 16 131/84 94 09/21/18 13:52 09/21/18 13:52 09/21/18 13:52 09/21/18 13:52 09/21/18 13:52 - General physical appearance Present: well developed, no distress, no pain - Eyes Present: PERRL, normal ocular movement - ENT Present: normal nares, no hearing loss, no congestion - Neck Present: no masses, trachea midline - Respiratory Present: normal respiratory effort - Cardiovascular Cardiovascular exam IM: RRR - Abdomen Abdomen: Present: soft, non tender - Genitourinary other (urine is clear yellow ) - Integumentary Present: no rash, no abnormal pigmentation - Neurologic Present: normal coordination - Musculoskeletal Present: other (no pedal edema ) Urology Results - Labs 09/22/18 05:51 09/22/18 05:51 Abnormal lab results WBC 12.0 K/mcL (4.3-11.1) H 09/22/18 05:51 RBC 4.02 M/mcL (4.19-5.50) L 09/22/18 05:51 Hgb 12.5 g/dL (12.9-16.9) L 09/22/18 05:51 PT 30.7 Seconds (9.4-12.1) H 09/21/18 14:40 APTT 41.2 Seconds (26.0-36.0) H 09/21/18 14:40 Glucose 147 mg/dL (70-105) H 09/22/18 05:51 Ur Specimen Adequacy See below A 09/21/18 14:42 Urine Clarity Cloudy (Clear) A 09/21/18 14:42 Urine Protein >=300 mg/dL (Neg-Trace) H 09/21/18 14:42 Urine Ketones Trace mg/dL (Negative) H 09/21/18 14:42 Urine Blood Large (Negative) H 09/21/18 14:42 Urine Bilirubin Small (Negative) H 09/21/18 14:42 Ur Leukocyte Esterase Small (Negative) H 09/21/18 14:42 Ur Culture Indicated? YES (NO) A 09/21/18 14:42 Diabetes panel 09/21/18 09/22/18 Range/Units 14:40 05:51 Sodium 137 136 (136-145) mEq/L Potassium 4.5 3.8 (3.5-5.1) mEq/L Chloride 105 105 (98-107) mEq/L Carbon Dioxide 26 24 (23-29) mEq/L BUN 17 14 (8-23) mg/dL Creatinine 1.01 0.92 (0.70-1.30) mg/dL Glucose 123 H 147 H (70-105) mg/dL Calcium 9.1 8.8 (8.6-10.3) mg/dL Calcium panel 09/21/18 09/22/18 Range/Units 14:40 05:51 Calcium 9.1 8.8 (8.6-10.3) mg/dL Pituitary panel 09/21/18 09/22/18 Range/Units 14:40 05:51 Sodium 137 136 (136-145) mEq/L Potassium 4.5 3.8 (3.5-5.1) mEq/L Chloride 105 105 (98-107) mEq/L Carbon Dioxide 26 24 (23-29) mEq/L BUN 17 14 (8-23) mg/dL Creatinine 1.01 0.92 (0.70-1.30) mg/dL Glucose 123 H 147 H (70-105) mg/dL Calcium 9.1 8.8 (8.6-10.3) mg/dL Adrenal panel 09/21/18 09/22/18 Range/Units 14:40 05:51 Sodium 137 136 (136-145) mEq/L Potassium 4.5 3.8 (3.5-5.1) mEq/L Chloride 105 105 (98-107) mEq/L Carbon Dioxide 26 24 (23-29) mEq/L BUN 17 14 (8-23) mg/dL Creatinine 1.01 0.92 (0.70-1.30) mg/dL Glucose 123 H 147 H (70-105) mg/dL Calcium 9.1 8.8 (8.6-10.3) mg/dL All other labs normal. - Imaging CT scan - abdomen: report reviewed, image reviewed CT scan - pelvis: report reviewed, image reviewed Consult Discharge Plan - Plan Referrals: Angel Del Rosario MD [Primary Care Provider] - <Los Kramer - Last Filed: 09/22/18 23:25> Date of Encounter: 09/22/18 - Assessment and Plan (1) Adrenal mass Current Visit: Yes Status: Acute Assessment and plan: Case discussed with Florin POLANCO. Agree with PA findings and recommendations. Exam Initial Vital Signs Temp Pulse Resp BP Pulse Ox 98.0 F 64 16 131/84 94 09/21/18 13:52 09/21/18 13:52 09/21/18 13:52 09/21/18 13:52 09/21/18 13:52 Urology Results - Labs 09/22/18 05:51 09/22/18 05:51 Abnormal lab results WBC 12.0 K/mcL (4.3-11.1) H 09/22/18 05:51 RBC 4.02 M/mcL (4.19-5.50) L 09/22/18 05:51 Hgb 12.5 g/dL (12.9-16.9) L 09/22/18 05:51 PT 30.7 Seconds (9.4-12.1) H 09/21/18 14:40 APTT 41.2 Seconds (26.0-36.0) H 09/21/18 14:40 Glucose 147 mg/dL (70-105) H 09/22/18 05:51 POC Glucose 141 mg/dL (70-99) H 09/22/18 16:41 Ur Specimen Adequacy See below A 09/21/18 14:42 Urine Clarity Cloudy (Clear) A 09/21/18 14:42 Urine Protein >=300 mg/dL (Neg-Trace) H 09/21/18 14:42 Urine Ketones Trace mg/dL (Negative) H 09/21/18 14:42 Urine Blood Large (Negative) H 09/21/18 14:42 Urine Bilirubin Small (Negative) H 09/21/18 14:42 Ur Leukocyte Esterase Small (Negative) H 09/21/18 14:42 Ur Culture Indicated? YES (NO) A 09/21/18 14:42 Diabetes panel 09/22/18 Range/Units 05:51 Sodium 136 (136-145) mEq/L Potassium 3.8 (3.5-5.1) mEq/L Chloride 105 (98-107) mEq/L Carbon Dioxide 24 (23-29) mEq/L BUN 14 (8-23) mg/dL Creatinine 0.92 (0.70-1.30) mg/dL Glucose 147 H (70-105) mg/dL Calcium 8.8 (8.6-10.3) mg/dL Calcium panel 09/22/18 Range/Units 05:51 Calcium 8.8 (8.6-10.3) mg/dL Pituitary panel 09/22/18 Range/Units 05:51 Sodium 136 (136-145) mEq/L Potassium 3.8 (3.5-5.1) mEq/L Chloride 105 (98-107) mEq/L Carbon Dioxide 24 (23-29) mEq/L BUN 14 (8-23) mg/dL Creatinine 0.92 (0.70-1.30) mg/dL Glucose 147 H (70-105) mg/dL Calcium 8.8 (8.6-10.3) mg/dL Adrenal panel 09/22/18 Range/Units 05:51 Sodium 136 (136-145) mEq/L Potassium 3.8 (3.5-5.1) mEq/L Chloride 105 (98-107) mEq/L Carbon Dioxide 24 (23-29) mEq/L BUN 14 (8-23) mg/dL Creatinine 0.92 (0.70-1.30) mg/dL Glucose 147 H (70-105) mg/dL Calcium 8.8 (8.6-10.3) mg/dL All other labs normal.
--- NOTE | 2018-09-22 09:18 | Internal Med Progress Note ---
<Yvrose Singh - Last Filed: 09/22/18 15:58> Hospitalist Progress Note - Encounter Date of Encounter: 09/22/18 Time of Encounter: 09:18 - Subjective Interval History: patient seen and examined at bedside. He is alert and orientedx3 and in no acute distress. Admitted dysuria, increased urinary frequency, urgency. denies fever, chills, nausea, vomiting. he has no complaints at this time. - Exam Vitals: Temp Pulse Resp BP Pulse Ox 98.2 F 101 18 118/66 92 09/22/18 06:37 09/22/18 06:37 09/22/18 06:37 09/22/18 06:37 09/22/18 06:37 Exam: Gen.: Vitals noted. No acute distress. AAOx3 HEENT: oropharynx clear, Normocephalic, atraumatic Neck: Supple. No adenopathy. Cardiac: RRR, no murmur, +S1/S2 Pulmonary: CTA bilaterally, no wheezes, rales or rhonchi, equal chest expansion Abdomen: soft, suprapubictender, Bowel sounds noted, no guarding Extremities: no BLE edema, nontender calf, no cyanosis or clubbing Neuro: A&Ox3, moves all extremities, no focal deficits Psych: Appropriate mood and behavior - Assessment and Plan (1) Hematuria Current Visit: Yes Status: Acute Assessment and Plan: patient has painless hematuria for one day duration. He had 6 episodes of hematuria at home. 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 The patient is on anticoagulation with coumadin for atrial fibrillation. hemodynamically stable hemoglobin 12.5 urinalysis: protein, blood, leukocyte esterase, WBC 15- 30, yeast CT abdomen and pelvis with IV contrast: 1. No appendicitis, obstructive uropathy or cholecystitis. 2. 28 mm right adrenal lesion. Adrenal protocol CT may be considered to further evaluate. 3. Prostatomegaly in urinary bladder wall thickening. 4. Multifocal levels of compression involving the lumbar spine with up to 30% compression at the L5 level. 70% compression at the at the L2 level. plan: -urology following. plan for cystoscopy outpatient. -will monitor bleeding -holding Coumadin (2) Essential hypertension Current Visit: No Status: Chronic Assessment and Plan: known hypertension taking toprol, lisinopril, digoxin BP controlled -continue home medications (3) Diabetes mellitus Current Visit: No Status: Chronic Assessment and Plan: history of diabetes. glucose controlled -continue sliding scale insulin, Accu checks, diabetic diet (4) Afib Current Visit: No Status: Chronic Assessment and Plan: known atrial fibrillation taking toprol, digoxin, Coumadin tachycardic 101 -continue toprol, digoxin, -hold Coumadin due to hematuria (5) Non-ischemic cardiomyopathy Current Visit: No Status: Chronic Assessment and Plan: Hx of cardiomyopathy with pacemaker/AICD Pt notes he recently restarted digoxin 2 weeks ago Digoxin: 1.1 Most recent Echo (07/08/17): LVEF 20-25%. Severely dilated left ventricle. Severe global left ventricular systolic dysfunction. Atypical septal motion consistent with bundle branch block. Right ventricular size not well evaluated, but function appears normal. -plan as above (6) Adrenal mass Current Visit: Yes Status: Acute Assessment and Plan: abdominal CT demonstrated 28 mm right adrenal lesion. Recommendations for an adrenal protocol CT to further evaluate. -this was discussed with the patient and he is to follow up with his PCP outpatient to further investigate as this is not emergent. (7) DVT prophylaxis Current Visit: No Status: Resolved Assessment and Plan: SCD (8) UTI (urinary tract infection) Current Visit: Yes Status: Acute Assessment and Plan: symptomatic UTI. Admitted dysuria, increased urinary frequency, urgency, hematuria. denies urinary tract, urinary catheterization. urinalysis: protein, blood, leukocyte esterase, WBC 15- 30, yeast afebrile WBC 12, yesterday 13.5 improving plan: - continue Rocephin -urine culture pending - Time Spent with Patient Total time spent is greater than 50% in coordination of care (as documented) at patient's floor/unit and/or counseling patient: Internal Medicine: Result - Labs CBC & Chem 7: 09/22/18 05:51 09/22/18 05:51 Labs: Short CBC 09/21/18 09/22/18 Range/Units 14:40 05:51 WBC 13.5 H D 12.0 H (4.3-11.1) K/mcL Hgb 13.0 12.5 L (12.9-16.9) g/dL Hct 40.5 38.1 (37.5-50.1) % Plt Count 275 255 (140-400) K/mcL Neutrophils # 10.0 H 8.1 (1.6-8.9) K/mcL BMP 09/21/18 09/22/18 14:40 05:51 Sodium 137 136 Potassium 4.5 3.8 Chloride 105 105 Carbon Dioxide 26 24 BUN 17 14 Creatinine 1.01 0.92 Glucose 123 H 147 H Calcium 9.1 8.8 Urine 09/21/18 Range/Units 14:42 Urine Color Brown (Yellow) Urine Clarity Cloudy A (Clear) Urine pH 5.5 (5.0-8.0) pH Units Ur Specific [place] 1.013 (1.010-1.025) Urine Protein >=300 H (Neg-Trace) mg/dL Urine Glucose (UA) Normal (Normal) mg/dL - ABG Interpretation ABG results: PT/INR, D-dimer PT 30.7 Seconds (9.4-12.1) H 09/21/18 14:40 - Impressions Impressions Abdomen/Pelvis CT 09/21/18 16:30 IMPRESSION: 1. No appendicitis, obstructive uropathy or cholecystitis. 2. 28 mm right adrenal lesion. Adrenal protocol CT may be considered to further evaluate. 3. Prostatomegaly in urinary bladder wall thickening. 4. Multifocal levels of compression involving the lumbar spine with up to 30% compression at the L5 level. 70% compression at the at the L2 level. D/ / Nathan Oliveros / Nathan Oliveros Interpreting Provider: Nathan Oliveros Consult Discharge Plan - Plan Referrals: Angel Del Rosario MD [Primary Care Provider] - <Casey New - Last Filed: 09/22/18 18:36> Hospitalist Progress Note - Encounter Date of Encounter: 09/22/18 - Exam Vitals: Temp Pulse Resp BP Pulse Ox 97.8 F 89 18 135/83 94 09/22/18 16:43 09/22/18 16:43 09/22/18 16:43 09/22/18 16:43 09/22/18 16:43 - Assessment and Plan (1) Essential hypertension Current Visit: No Status: Chronic (2) Diabetes mellitus Current Visit: No Status: Chronic (3) DVT prophylaxis Current Visit: No Status: Resolved (4) Afib Current Visit: No Status: Chronic (5) Non-ischemic cardiomyopathy Current Visit: No Status: Chronic (6) Hematuria Current Visit: Yes Status: Acute (7) Adrenal mass Current Visit: Yes Status: Acute (8) UTI (urinary tract infection) Current Visit: Yes Status: Acute - Time Spent with Patient Total time spent is greater than 50% in coordination of care (as documented) at patient's floor/unit and/or counseling patient: Internal Medicine: Result - Labs CBC & Chem 7: 09/22/18 05:51 09/22/18 05:51 Labs: Short CBC 09/22/18 Range/Units 05:51 WBC 12.0 H (4.3-11.1) K/mcL Hgb 12.5 L (12.9-16.9) g/dL Hct 38.1 (37.5-50.1) % Plt Count 255 (140-400) K/mcL Neutrophils # 8.1 (1.6-8.9) K/mcL BMP 09/22/18 05:51 Sodium 136 Potassium 3.8 Chloride 105 Carbon Dioxide 24 BUN 14 Creatinine 0.92 Glucose 147 H Calcium 8.8 - ABG Interpretation ABG results: PT/INR, D-dimer PT 30.7 Seconds (9.4-12.1) H 09/21/18 14:40 - Attending Attestation I examined this patient and my medical decision-making was reviewed with the Resident Physician on 09/22/18. I agree with the documented findings, disposition and treatment plan as described except to the extent set forth below. Mr Li is currently in observation for hematuria and presumed UTI. He remains moderate to high risk due to potential for worsening clinical status. Mr Li is still having some pain. No fever or chills. No hematuria now. Culture is pending. Exam alert Comfortable Mucus membranes dry Heart not tachy No wheeze abd soft I/P 1. UTI - culture pending. 2. Hematuria - per urology Further diagnoses and plan as above. <Yvrose Singh - Last Filed: 09/22/18 15:58> (1) Hematuria Qualifiers: Hematuria type: gross Qualified Code(s): R31.0 - Gross hematuria (3) Diabetes mellitus Qualifiers: Diabetes mellitus type: type 2 Diabetes mellitus fdc insulin use: without fdc use Diabetes mellitus complication status: with unspecified complications Qualified Code(s): E11.8 - Type 2 diabetes mellitus with unspecif ied complications (4) Afib Qualifiers: Atrial fibrillation type: paroxysmal Qualified Code(s): I48.0 - Paroxysmal atrial fibrillation <Casey New - Last Filed: 09/22/18 18:36> (2) Diabetes mellitus Qualifiers: Diabetes mellitus type: type 2 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
[2018-09-22] MEDS: Metoprolol XL (24 HR) Succ 50 MG TAB.ER.24H PO SCH (10:22)
[2018-09-23 05:09] LABS: Basophils # 0.1 K/mcL (0.0-0.2); Basophils % 0.6 %; Eosinophils # 0.2 K/mcL (0.0-0.6); Eosinophils % 2.3 %; Hematocrit 38.7 % (37.5-50.1); Hemoglobin 12.5 g/dL (12.9-16.9); Immature Granulocytes % 0.4 % (0-4); Lymphocytes # 2.6 K/mcL (0.6-4.6); Lymphocytes % 31.6 %; Mean Corpuscular HGB Conc 32.3 g/dL (31.6-35.5); Mean Corpuscular Hemoglobin 30.9 pg (28.0-33.3); Mean Corpuscular Volume 95.6 fL (83.0-100.0); Mean Platelet Volume 9.8 fL (9.4-12.4); Monocytes % 11.7 %; Neutrophils # 4.3 K/mcL (1.6-8.9); Platelet Count 254 K/mcL (140-400); Red Blood Count 4.05 M/mcL (4.19-5.50); Red Cell Distribution Width 14.3 % (11.5-14.5); Segmented Neutrophils % 53.4 %
[2018-09-23 07:46] VITALS: BP 130/85
[2018-09-23] MEDS: Insulin LISPRO 300 UNITS/3 ML VIAL SQ SCH (07:57)
[2018-09-23] MEDS ORDERED: *HR* Digoxin 0.25 MG TABLET PO SCH (09:00)
--- NOTE | 2018-09-23 09:28 | Discharge Summary ---
<Yvrose Singh - Last Filed: 09/23/18 09:25> - NOTES TO OUTPATIENT PROVIDER Notes to Outpatient Provider: - Admitted for hematuria. No hematuria during admission. Coumadin was held but may be restarted. Patient to follow-up with urology outpatient in 1 to 2 weeks for cystoscopy. -Patient has UTI treated wit h ciprofloxacin for a total of 10 days of antibiotics. -patient having abdominal CT demonstrated 28 mm right adrenal lesion. Recommendations for an adrenal protocol CT to further evaluate. This will need followed up outpatient. 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 use Diabetes mellitus complication status: without complication Qualified Code(s): E11.9 - Type 2 diabetes mellitus without complications (4) Afib Priority: Secondary Status: Chronic Qualifiers: Atrial fibrillation type: paroxysmal Qualified Code(s): I48.0 - Paroxysmal atrial fibrillation (5) Non-ischemic cardiomyopathy Priority: Secondary Status: Chronic (6) Adrenal mass Priority: Secondary Status: Acute (7) DVT prophylaxis Priority: Secondary Status: Resolved (8) UTI (urinary tract infection) Priority: Secondary Status: Acute Qualifiers: Urinary tract infection type: acute cystitis Hematuria presence: with hematuria Qualified Code(s): N30.01 - Acute cystitis with hematuria Hospital course: Mr. Li is a 73 year old male with past medical history significant for A. fib on Coumadin, diabetes mellitus, hypertension, hyperlipidemia, pacemaker/AICD who presents with gross hematuria that he first noticed this morning. States that he noticed bright red blood in the toilet when he urinated. Associated with dysuria, urinary urgency, urinary frequency, slight back/flank pain, suprapubic tenderness. Denies fevers/chills, lightheadedness/dizziness, chest pain, palpitations, shortness of breath, headache, vision changes, abdominal pain, vomiting, diarrhea, melena, hematemesis. Denies having any similar incidents in the past. Denies history of kidney stones or unbearable flank pain. CT abdomen and pelvis demonstrated Prostatomegaly in urinary bladder wall thickening. 28 mm right adrenal lesion. Adrenal protocol CT may be considered to further evaluate. Multifocal levels of compression involving the lumbar spine with up to 30% compression at the L5 level. 70% compression at the at the L2 level. His Coumadin was held due to the hematuria. Urinalysis demonstrated a UTI so a urine culture was sent and positive for gram-negative rods. He had been started on Rocephin for antibiotic treatment. Urology was consulted and evaluated the patient. During admission be hematuria was resolved. Urology decided to follow-up with the patient in the office for cystoscopy. The patient was notified of the right adrenal lesion and was instructed to follow-up with his primary care provider for further investigation. Upon discharge she was given ciprofloxacin for urinary tract infection treatment. He was instructed to follow up with urology in 1 to 2 weeks for cystoscopy. Upon discharge she was afebrile, WBC WNL. He denied fever, chills, dysuria, hematuria, nausea, vomiting, abdominal pain. He was alert and oriented times 3 and stated clear understanding of treatment plan. Discharge discussed with: patient, nurse - Time Spent with Patient Total time spent providing and/or coordinating discharge services: Greater than 30 minutes - Discharge Medications Prescriptions: RX: Ciprofloxacin [Cipro] 500 mg PO BID #16 tablet Home Medications: RX: Aspirin [Adult Aspirin Regimen] 81 mg PO DAILY 08/25/18 [History] RX: Atorvastatin [Lipitor] 40 mg PO HS 08/25/18 [History] RX: Cholecalciferol (Vitamin D3) [Vitamin D3] 1,000 unit PO DAILY 08/25/18 [History] RX: Digoxin [Lanoxin] 0.25 mg PO DAILY 08/25/18 [History] RX: Lisinopril [Zestril] 5 mg PO DAILY 08/25/18 [History] RX: Magnesium Oxide [Mag-Oxide Magnesium] 400 mg PO DAILY 08/25/18 [History] RX: Warfarin [Coumadin] 3 mg PO 1800 08/25/18 [History] RX: Metformin HCl [Metformin HCl ER] 500 mg PO BID 09/22/18 [History] RX: Metoprolol Succinate [Toprol Xl] 100 mg PO DAILY 09/22/18 [History] RX: Ciprofloxacin [Cipro] 500 mg PO BID #16 tablet 09/23/18 [Rx] Allergies/Adverse Reactions: Allergy/AdvReac Type Severity Reaction Status Date / Time No Known Allergies Allergy Verified 08/25/18 13:55 Date of admission: 09/21/18 20:16 Primary care physician: Angel Del Rosario MD Consults: 09/21/18 19:57 Consult to Urology [CONS] Stat Consulting Provider: [facility] Reason for Consult: hematuria, adrenal mass Time Notified: 19:57 Call Completed: Yes Discharging clinician: Casey New Anticipated date of discharge: 09/23/18 - Constitutional Vitals: Temp Pulse Resp BP Pulse Ox 97.6 F 103 17 130/85 94 09/23/18 07:42 09/23/18 07:42 09/23/18 07:42 09/23/18 07:42 09/23/18 07:42 General appearance: Present: cooperative, A&O X 3, pleasant, no acute distress, answers questions appropriately Exam: Gen.: Vitals noted. No acute distress. AAOx3 HEENT: oropharynx clear, Normocephalic, atraumatic Neck: Supple. No adenopathy. Cardiac: RRR, no murmur, +S1/S2 Pulmonary: CTA bilaterally, no wheezes, rales or rhonchi, equal chest expansion Abdomen: soft, suprapubictender, Bowel sounds noted, no guarding Extremities: no BLE edema, nontender calf, no cyanosis or clubbing Neuro: A&Ox3, moves all extremities, no focal deficits Psych: Appropriate mood and behavior - Patient Status Disposition: Home, Self-Care Condition: Good Functional capacity at discharge: independent ambulation Overall status at discharge: patient is back to baseline - Discharge Instructions Instructions: Urinary Tract Infection in Men (DC) Follow Up With: Angel Del Rosario MD [Primary Care Provider] - Los Kramer [Partnered Physician] - (Office will call patient with date and time of appointment. Thank you) Additional Instructions: Finish antibiotic to completion Follow-up with urology for cystoscopy in 1 to 2 weeks Follow-up with your primary care provider in a week or 2 for further evaluation of adrenal lesion Return to the hospital should you develop fever, chills, worsened hematuria. 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 Diabetes mellitus complication status: without complication Qualified Code(s): E11.9 - Type 2 diabetes mellitus without complications (3) DVT prophylaxis Status: Resolved (4) Afib Status: Chronic Qualifiers: Atrial fibrillation type: paroxysmal Qualified Code(s): I48.0 - Paroxysmal atrial fibrillation (5) Non-ischemic cardiomyopathy Status: Chronic (6) Hematuria Status: Acute Qualifiers: Hematuria type: gross Qualified Code(s): R31.0 - Gross hematuria (7) Adrenal mass Status: Acute (8) UTI (urinary tract infection) Priority: Primary Status: Acute Qualifiers: Urinary tract infection type: acute cystitis Hematuria presence: with hematuria Qualified Code(s): N30.01 - Acute cystitis with hematuria Hospital course: Mr. Li is a 73 year old male - Time Spent with Patient Total time spent providing and/or coordinating discharge services: Date of admission: 09/21/18 20:16 Primary care physician: Angel Del Rosario MD Consults: 09/21/18 19:57 Consult to Urology [CONS] Stat Consulting Provider: [facility] Reason for Consult: hematuria, adrenal mass Time Notified: 19:57 Call Completed: Yes - Constitutional Vitals: Temp Pulse Resp BP Pulse Ox 97.6 F 103 17 130/85 94 09/23/18 07:42 09/23/18 07:42 09/23/18 07:42 09/23/18 07:42 09/23/18 07:42 - Attending Attestation I examined this patient and my medical decision-making was reviewed with the Resident Physician on 09/23/18. I agree with the documented findings, disposition and treatment plan as described except to the extent set forth below. Mr Li has been in observation for hematuria and UTI. He is now feeling at baseline and is afebrile. He is to follow up with PCP for adrenal lesion. He is now ready for discharge home and outpatient urology follow up. Exam Alert Comfortable Mucus membranes dry Heart reg and not tachy No wheeze Abd soft and nontender No edema Plan D/C home today Follow up with PCP
[2018-09-23] MEDS: Metoprolol XL (24 HR) Succ 50 MG TAB.ER.24H PO SCH (09:52)
--- NOTE | 2018-09-23 10:15 | Urology Progress Note ---
<Saima Catherine N - Last Filed: 09/23/18 10:13> Date of Encounter: 09/23/18 Time of Encounter: 08:25 - Assessment and Plan (1) Adrenal mass Status: Acute Assessment and plan: Patient is a 73 year old male who presents with right adrenal mass. Patient elects to follow up outpatient for CT adrenal mass protocol. Patient will follow up in 1-[address] Kramer. (2) Hematuria Status: Acute Assessment and plan: Patient is a 73 year old male who presents with gross hematuria. Hematuria resolved on admission. Planning outpatient cystoscopy in 1-[address] Kramer. Qualifiers: Hematuria type: gross Qualified Code(s): R31.0 - Gross hematuria Progress Note Subjective: no new complaints, feels better Narrative: Patient seen and examined lying in bed in no apparent distress. Tolerating normal diet. Voiding without difficulty. Patient denies gross hematuria, problems urinating, or flank pain. Objective Initial Vital Signs Temp Pulse Resp BP Pulse Ox 98.0 F 64 16 131/84 94 09/21/18 13:52 09/21/18 13:52 09/21/18 13:52 09/21/18 13:52 09/21/18 13:52 - General physical appearance Present: well developed, no distress, no pain - Respiratory Present: normal expansion, normal respiratory effort - Abdomen Present: soft, non tender - Integumentary Present: no rash, no abnormal pigmentation - Musculoskeletal Present: normal posture - Psychiatric Present: oriented to time, oriented to person, oriented to place, speech is normal, memory intact - Labs 09/23/18 04:38 09/22/18 05:51 Consult Discharge Plan - Plan Instructions: Urinary Tract Infection in Men (DC) Additional Instructions: Finish antibiotic to completion Follow-up with urology for cystoscopy in 1 to 2 weeks Follow-up with your primary care provider in a week or 2 for further evaluation of adrenal lesion Return to the hospital should you develop fever, chills, worsened hematuria. Referrals: Angel Del Rosario MD [Primary Care Provider] - Los Kramer [Partnered Physician] - (Office will call patient with date and time of appointment. Thank you) Prescriptions: RX: Ciprofloxacin [Cipro] 500 mg PO BID #16 tablet <Los Kramer - Last Filed: 09/23/18 22:42> Date of Encounter: 09/23/18 - Assessment and Plan (1) Adrenal mass Status: Acute Assessment and plan: Agree with PA assessment and plan Objective Initial Vital Signs Temp Pulse Resp BP Pulse Ox 98.0 F 64 16 131/84 94 09/21/18 13:52 09/21/18 13:52 09/21/18 13:52 09/21/18 13:52 09/21/18 13:52 - Labs 09/23/18 04:38 09/22/18 05:51
== END 2018-09-23 12:00 | disposition home or self-care (01) ==
LOC: 3ANU 13:46 → EMEROOARM 13:46 → SUATTDRO 20:16 → 3ANU 21:11
PROVIDERS: ADMIT Internal Medicine; ATTEND Internal Medicine

== ENCOUNTER 2020-04-29 21:04 | Observation (INO) ==
[2020-04-29] MEDS ORDERED: Aspirin 81 MG TAB.CHEW PO ONE (21:13)
[2020-04-29] MEDS ORDERED: Nitroglycerin 0.4 MG TAB.SUBL SL PRN (21:13)
[2020-04-29 21:54] LABS: Basophils # 0.1 K/mcL (0.0-0.2); Basophils % 0.4 %; Eosinophils # 0.2 K/mcL (0.0-0.6); Eosinophils % 1.3 %; Hematocrit 43.4 % (37.5-50.1); Hemoglobin 13.6 g/dL (12.9-16.9); Immature Granulocytes % 0.4 % (0-4); Lymphocytes # 2.4 K/mcL (0.6-4.6); Lymphocytes % 21.3 %; Mean Corpuscular HGB Conc 31.3 g/dL (31.6-35.5); Mean Corpuscular Hemoglobin 31.8 pg (28.0-33.3); Mean Corpuscular Volume 101.4 fL (83.0-100.0); Mean Platelet Volume 9.3 fL (9.4-12.4); Monocytes # 1.1 K/mcL (0.0-1.3); Monocytes % 9.6 %; Neutrophils # 7.5 K/mcL (1.6-8.9); Platelet Count 275 K/mcL (140-400); Red Blood Count 4.28 M/mcL (4.19-5.50); Red Cell Distribution Width 13.1 % (11.5-14.5); White Blood Count 11.2 K/mcL (4.3-11.1)
[2020-04-29 22:01] LABS: INR 4.3
[2020-04-29 22:03] LABS: Activated Partial Thrombo Time 50.1 Seconds (26.0-36.0)
[2020-04-29 22:06] LABS: Prothrombin Time 48.9 Seconds (9.4-12.1)
[2020-04-29 22:13] LABS: BUN/Creatinine Ratio 17 (6-26); Blood Urea Nitrogen 17 mg/dL (8-23); Calcium 8.9 mg/dL (8.6-10.3); Carbon Dioxide 27 mEq/L (23-29); Chloride 102 mEq/L (98-107); Glucose 126 mg/dL (70-105); Osmolality,Calculated 285 (280-300); Potassium 4.3 mEq/L (3.5-5.1); Sodium 136 mEq/L (136-145); eGFR For African Americans > 60 (> 60); eGFR For Non-African Americans > 60 (> 60)
[2020-04-29 22:15] LABS: Troponin I < 0.03 ng/mL (< 0.04)
[2020-04-29] MEDS ORDERED: Furosemide 40 MG/4 ML VIAL IVP ONE (22:47)
[2020-04-29] MEDS ORDERED: Naloxone 0.4 MG/ML INJ IVP PRN (23:54)
[2020-04-29] MEDS ORDERED: Ondansetron 4 MG/2 ML VIAL IVP PRN (23:54)
[2020-04-30] MEDS ORDERED: Isovue-370 500 ML BOTTLE IVP ONE (00:12)
[2020-04-30] MEDS ORDERED: *HR* Dextrose 50 % in Water (Vial) 50 ML VIAL IVP PRN (00:28)
[2020-04-30] MEDS ORDERED: Dextrose Gel 15 GM/37.5 ML TUBE PO PRN ×2 (00:28)
[2020-04-30] MEDS ORDERED: D5% in Water 1,000 ML IVC PRN (00:28)
[2020-04-30] MEDS: *HR* OxyCODONE Immed Rel 5 MG TABLET PO PRN ×3 (00:56→18:26)
[2020-04-30 06:00] LABS: Basophils % 0.2 %; Eosinophils % 0.1 %; Hematocrit 43.1 % (37.5-50.1); Hemoglobin 13.6 g/dL (12.9-16.9); Immature Granulocytes % 0.3 % (0-4); Lymphocytes # 1.7 K/mcL (0.6-4.6); Lymphocytes % 11.6 %; Mean Corpuscular HGB Conc 31.6 g/dL (31.6-35.5); Mean Corpuscular Hemoglobin 31.1 pg (28.0-33.3); Mean Corpuscular Volume 98.6 fL (83.0-100.0); Mean Platelet Volume 9.6 fL (9.4-12.4); Monocytes # 1.6 K/mcL (0.0-1.3); Monocytes % 11.1 %; Neutrophils # 11.1 K/mcL (1.6-8.9); Platelet Count 279 K/mcL (140-400); Red Blood Count 4.37 M/mcL (4.19-5.50); Red Cell Distribution Width 13.1 % (11.5-14.5); Segmented Neutrophils % 76.7 %; White Blood Count 14.4 K/mcL (4.3-11.1)
[2020-04-30 06:06] LABS: Prothrombin Time 52.8 Seconds (9.4-12.1)
[2020-04-30 06:07] LABS: INR 4.6
[2020-04-30 06:24] LABS: BUN/Creatinine Ratio 16 (6-26); Blood Urea Nitrogen 16 mg/dL (8-23); Calcium 9.1 mg/dL (8.6-10.3); Carbon Dioxide 24 mEq/L (23-29); Chloride 101 mEq/L (98-107); Glucose 134 mg/dL (70-105); Magnesium 1.6 mg/dL (1.6-2.6); Osmolality,Calculated 279 (280-300); Potassium 4.8 mEq/L (3.5-5.1); Sodium 133 mEq/L (136-145); Troponin I < 0.03 ng/mL (< 0.04); eGFR For African Americans > 60 (> 60); eGFR For Non-African Americans > 60 (> 60)
[2020-04-30 06:35] LABS: Thyroid Stimulating Hormone 1.448 mcIU/mL (0.340-5.600)
[2020-04-30] MEDS: Insulin LISPRO 300 UNITS/3 ML VIAL SQ SCH ×3 (07:54→16:32)
[2020-04-30] MEDS: Magnesium Oxide 400 MG TABLET PO SCH (07:55)
[2020-04-30] MEDS: Aspirin Enteric Coated 81 MG Tablet PO SCH (07:55)
[2020-04-30] MEDS: Furosemide 40 MG/4 ML VIAL IVP SCH (07:56)
[2020-04-30] MEDS: lisinopriL 5 MG TABLET PO SCH (07:56)
[2020-04-30] MEDS ORDERED: GI Cocktail 40 ML EACH PO ONE (09:11)
[2020-04-30] MEDS ORDERED: Insulin LISPRO 300 UNITS/3 ML VIAL SQ SCH (21:00)
[2020-05-01 07:12] LABS: Basophils % 0.4 %; Eosinophils # 0.1 K/mcL (0.0-0.6); Eosinophils % 0.9 %; Hematocrit 40.7 % (37.5-50.1); INR 3.2; Immature Granulocytes % 0.4 % (0-4); Lymphocytes # 2.3 K/mcL (0.6-4.6); Lymphocytes % 21.5 %; Mean Corpuscular HGB Conc 31.9 g/dL (31.6-35.5); Mean Corpuscular Hemoglobin 31.9 pg (28.0-33.3); Mean Platelet Volume 9.6 fL (9.4-12.4); Monocytes # 1.3 K/mcL (0.0-1.3); Monocytes % 12.1 %; Neutrophils # 6.9 K/mcL (1.6-8.9); Platelet Count 235 K/mcL (140-400); Prothrombin Time 36.4 Seconds (9.4-12.1); Red Blood Count 4.07 M/mcL (4.19-5.50); Segmented Neutrophils % 64.7 %; White Blood Count 10.7 K/mcL (4.3-11.1)
[2020-05-01] MEDS: Aspirin Enteric Coated 81 MG Tablet PO SCH (07:26)
[2020-05-01] MEDS: lisinopriL 5 MG TABLET PO SCH (07:26)
[2020-05-01] MEDS: Magnesium Oxide 400 MG TABLET PO SCH (07:26)
[2020-05-01] MEDS: Furosemide 40 MG/4 ML VIAL IVP SCH (07:27)
[2020-05-01 07:29] LABS: BUN/Creatinine Ratio 21 (6-26); Blood Urea Nitrogen 22 mg/dL (8-23); Calcium 8.8 mg/dL (8.6-10.3); Carbon Dioxide 27 mEq/L (23-29); Chloride 98 mEq/L (98-107); Glucose 125 mg/dL (70-105); Osmolality,Calculated 283 (280-300); Potassium 3.7 mEq/L (3.5-5.1); Sodium 134 mEq/L (136-145); eGFR For African Americans > 60 (> 60); eGFR For Non-African Americans > 60 (> 60)
[2020-05-01] MEDS: Insulin LISPRO 300 UNITS/3 ML VIAL SQ SCH ×2 (07:38→11:56)
[2020-05-01] MEDS ORDERED: Cyanocobalamin (B-12) 1,000 MCG TABLET PO SCH (09:00)
[2020-05-01 10:25] VITALS: BP 100/64
== END 2020-05-01 12:23 | disposition home or self-care (01) ==
LOC: 3BNU 21:04 → EMEROOARM 21:04 → SUATTDRO 23:14 → 3BNU 23:34
PROVIDERS: ADMIT Family Medicine; ATTEND Internal Medicine